=== PATIENT | male | born 1940 | race Caucasian/White ===

== ENCOUNTER 2019-07-19 10:38 | Outpatient (CLI) | payer MEDICARE, SELFPAY ==
--- NOTE | ~2019-07-19 | CT_ITS ---
EXAMINATION: CT abdomen pelvis wo con DATE: 07/19/2019 11:20 INDICATION: Gross hematuria TECHNIQUE: Computed tomography (CT) of the abdomen and pelvis was performed without intravenous contr ast. The dose-length product was 397.12 mGy-cm. Automated exposure control and iterative reconstructi on technique were employed. COMPARISON: CT dated 08/23/2014 FINDINGS: Lung bases are unremarkable. No significant pleural or pericardial effusion. There is ather osclerosis of the coronary arteries and aorta. No evidence for aneurysm. There are calcifications of the pelvis consistent with chronic pancreatitis. There are calcified granulomas in the spleen. There is a chronic low-density mass of the left adrenal gland measuring 3.7 cm craniocaudal dimension , unchanged from prior study. There are nonobstructing bilateral renal stones, largest in the lower p ole of the left kidney measuring 9 mm. No ureteral stones or hydronephrosis. There is a 3.8 cm left r enal cyst. There is moderate lumbar spondylosis with levoscoliosis. The right adrenal gland is unremarkable. No free air or free fluid. There are radiation therapy impla nt seeds in the prostate bed. Nonspecific bowel gas pattern with scattered air-fluid levels, possibly ileus. Colonic diverticulosis without evidence for diverticulitis. There are fat-containing inguinal hernias. IMPRESSION: 1. Nonobstructing bilateral nephrolithiasis. 2: Nonspecific bowel gas pattern with air-fluid levels, possibly adynamic ileus. Reviewed, dictated and finalized at location A. IMPRESSION: 1. Nonobstructing bilateral nephrolithiasis. 2: Nonspecific bowel gas pattern with air-fluid levels, possibly adynamic ileus .
== END 2019-07-19 10:39 | disposition home or self-care (01) ==
LOC: ANHIMG 10:41
PROVIDERS: PCP Family Medicine; Visit Provider Urology
DX: R31.0 Gross hematuria (principal); N20.0 Calculus of kidney
CPT/HCPCS: 74176

== ENCOUNTER 2019-08-18 09:21 | Outpatient (CLI) | payer MEDICARE, SELFPAY ==
--- NOTE | 2019-08-18 09:24 | ECG_ITS ---
Measurements Intervals [place] Rate: 67 P: 71 MI: 225 QRS: 119 QRSD: 96 T: 93 QT: 390 QTc: 415 Interpretive Statements SINUS RHYTHM WITH FIRST DEGREE AV BLOCK RIGHT AXIS DEVIATION BORDERLINE R WAVE PROGRESSION, ANTERIOR LEADS BORDERLINE T WAVE ABNORMALITY- HIGH LATERAL LEADS BASELINE ARTIFACT- I, AVR, AVL, V4, V6 ABNORMAL ECG Electronically Signed On 08-18-2019 10:11:17 CDT by Joseluis Lundberg D.O.
[2019-08-18 10:06] LABS: INR 0.9; Prothrombin Time 12.2 Seconds (11.1-14.7)
[2019-08-18 10:07] LABS: Partial Thromboplastin Time 25.7 SECONDS (22.3-36.8)
== END 2019-08-18 09:22 | disposition home or self-care (01) ==
LOC: ANHSURGERY 09:24
PROVIDERS: PCP Family Medicine; Visit Provider Urology
DX: Z01.812 Encounter for preprocedural laboratory examination (principal); N20.0 Calculus of kidney; E78.5 Hyperlipidemia, unspecified; R94.31 Abnormal electrocardiogram [ECG] [EKG]
CPT/HCPCS: 36415; 85610; 85730; 87077; 87086; 87088; 87186; 93005

== ENCOUNTER 2019-08-24 00:05 | Outpatient (CLI) | payer MEDICARE, SELFPAY ==
[2019-08-24 17:43] LABS: SARS-CoV-2 RNA PCR Negative
== END 2019-08-24 00:06 | disposition home or self-care (01) ==
LOC: ANHCOVIDDT 00:05
PROVIDERS: PCP Family Medicine; Visit Provider Urology
DX: Z01.818 Encounter for other preprocedural examination (principal); Z11.59 Encounter for screening for other viral diseases
CPT/HCPCS: 87635; C9803; U0003

== ENCOUNTER 2019-08-26 01:35 | Day surgery (SDC) | payer MEDICARE, SELFPAY ==
[2019-08-17 09:34] VITALS: BMI 26.2
--- NOTE | 2019-08-23 15:53 | PM.HPGS ---
History of Present Illness History of Present Illness Consent: Risks, benefits, and alternatives have been discussed and questions answered. Patient agrees to proceed with procedure. Chief complaint: Kidney Stones Narrative: Francisco Kaiser is a 79 year old male With a very remote history of prostate cancer treated with brachytherapy in 2008. He has had a 3 day history of gross hematuria recently. CT scan of the abdomen and pelvis without contrast revealed a 10 mm left renal pelvic stone. We discussed therapeutic options and elected for ESWL. He is aware of the risk of this including, but not limited to, bleeding from the kidney, failure of effectively treat the stone he urinary tract infection. Review of Systems Cardiovascular: Cardiovascular: Denies chest pain, Denies lightheadedness, Denies palpitations and Denies dyspnea Respiratory: Respiratory: Denies dyspnea Gastrointestinal: Gastrointestinal: Denies diarrhea, Denies nausea and Denies vomiting Genitourinary: Genitourinary: Denies hematuria and Denies dysuria Endocrine: Endocrine: Denies palpitations PMFSH Past Medical History Medical History Anxiety Colon cancer COPD mixed type Dizziness Hyperlipidemia Prostate cancer Smoker Family History Family History Father Acute myocardial infarction Malignant neoplasm of prostate Family history of malignant neoplasm of bone Mother Family history of arthritis Social History Social History Smoking status: Heavy tobacco smoker Second hand tobacco smoke exposure: No Alcohol intake: never Substance use: never Substance use type: does not use Gender identity (if verbalized by the patient): Male Meds Home Medications and Allergies Home Medications Medication Instructions Recorded Confirmed Type atorvastatin 20 mg tablet 20 mg PO DAILY #90 tablet 03/31/19 08/17/19 Rx albuterol sulfate 90 mcg/actuation 2 inhalation INHALATION Q4H PRN 05/20/19 08/17/19 Rx aerosol inhaler #6.7 gm fluticasone 250 mcg-salmeterol 50 1 inhalation INHALATION BID #60 08/01/19 08/17/19 Rx mcg/dose blistr powdr for each inhalation coQ10 (ubiquinol) 200 mg PO DAILY 08/17/19 08/17/19 History glucosamine-chondroitin 2 ml PO DAILY 08/17/19 08/17/19 History krill oil 350 mg PO DAILY 08/17/19 08/17/19 History multivitamin 1 tablet PO DAILY 08/17/19 08/17/19 History Allergies Allergy/AdvReac Type Severity Reaction Status Date / Time No Known Allergies Allergy NONE Verified 08/17/19 09:40 Exam Const: General: healthy appearing, comfortable, no acute distress and well developed; No confusion Nutritional Appearance: well nourished Orientation/consciousness: patient oriented x3 and No confusion HENMT: Head: normocephalic and atraumatic Ears: external ears normal Face and sinus: normal facial exam Mouth: Yes lip normal Teeth and gingiva: dentition normal Eyes: General: appearance normal, both eyes and all related structures Alignment and Position: alignment normal Eyelids: eyelids normal Cornea: corneas normal Pupils: Equal, round and reactive pupils present EOM: EOMs intact bilaterally Neck: Neck: normal visual inspection, full ROM and no JVD Chest: Chest palpation & inspection: normal inspection of the chest Resp: Effort & Inspection: normal respiratory effort and no use of accessory muscles Auscultation: clear to auscultation bilaterally Cardio: Jugular venous distension: no JVD Rate: regular rate Rhythm: regular rhythm GI: Inspection: normal to inspection GI Palp: No abdominal tenderness, No Guarding due to palpation present (GI) and No Rebound tenderness present Auscultation: normal bowel sounds : General: Yes bladder normal to palpation and No CVA tenderness Back/Spine/Pelvis: Back: No CVA tenderness Skin: General skin exam: normal color and no rashes or lesions noted Neur
[2019-08-26] VITALS (9 sets, daily range): BP systolic 119–151; BP diastolic 65–78; PULSE 54–73; RESP 12–16; TEMP 36–36.2; O2SAT 91–99
--- NOTE | ~2019-08-26 | XR_ITS ---
EXAMINATION: XR abdomen/kub 1V DATE: 08/26/2019 06:14 INDICATION: Bilateral kidney stones. TECHNIQUE: A supine view of the abdomen on 2 radiographs was obtained. COMPARISON: CT abdomen and pelvis 07/19/2019 FINDINGS: There are no dilated loops of bowel. The kidneys are obscured by bowel. There is a 9 mm sto ne in left kidney. There are brachytherapy seeds in the prostate. IMPRESSION: 1. 9 mm stone in left kidney. Reviewed, dictated and finalized at location A.
[2019-08-26] MEDS: LACTATED RINGERS 1,000 ML 30 ML IV CONT ×2 (06:45→09:00)
--- NOTE | 2019-08-26 06:58 | WPDANESEPPF ---
Anes - Initial Pre Proc Eval Procedure: Operation Date: 08/26/19 07:30 Proposed Procedures p Cystoscopy, Left Renal Extracorporeal Shock Wave Lithotripsy, Left Stent Placement - Javier Mixon MD Date/Time: 08/26/19 06:58 Surgeon: Javier Mixon MD Pre Op Diagnosis: Kidney Stones Patient Data Age: 79 Gender: M Height: 5 ft 8 in Weight: 80.4 kg Allergies Allergy/AdvReac Type Severity Reaction Status Date / Time No Known Allergies Allergy NONE Verified 08/26/19 06:26 Home Medications Medication Instructions Recorded Confirmed Type atorvastatin 20 mg tablet 20 mg PO DAILY #90 tablet 03/31/19 08/26/19 Rx albuterol sulfate 90 mcg/actuation 2 inhalation INHALATION Q4H PRN 05/20/19 08/26/19 Rx aerosol inhaler #6.7 gm fluticasone 250 mcg-salmeterol 50 1 inhalation INHALATION BID #60 08/01/19 08/26/19 Rx mcg/dose blistr powdr for each inhalation coQ10 (ubiquinol) 200 mg PO DAILY 08/17/19 08/17/19 History glucosamine-chondroitin 2 ml PO DAILY 08/17/19 08/26/19 History krill oil 350 mg PO DAILY 08/17/19 08/26/19 History multivitamin 1 tablet PO DAILY 08/17/19 08/26/19 History Patient hx anesthesia problems: none Family hx anesthesia problems: none PMFSH Past Medical History Medical History Anxiety Colon cancer COPD mixed type Dizziness Hyperlipidemia Prostate cancer Smoker Family History Family History Father Acute myocardial infarction Malignant neoplasm of prostate Family history of malignant neoplasm of bone Mother Family history of arthritis Social History Social History Smoking status: Heavy tobacco smoker Second hand tobacco smoke exposure: No Alcohol intake: never Substance use: never Substance use type: does not use Gender identity (if verbalized by the patient): Male Anes - Eval Final PreProcedure Day of Procedure 08/26/19 06:58 Patient weight: overweight Heart: regular rate and rhythm Lungs: decreased breath sounds Airway: Mallampati scale class II Neurological: alert and oriented Last oral intake: >/= 8 hours ASA classification: III Emergent: no Anesthetic plan: proceed Anesthesia type and monitoring: general LMA and standard monitoring Informed Consent: The patient's anesthetic plan and its attendant risks and benefits were discussed with the patient/family/POA. Questions were solicited and answers provided to the satisfaction of the patient/family/POA.
--- NOTE | 2019-08-26 06:59 | WPDHPUPDATE1 ---
History and Physical Update Update Date/Time: 08/26/19 06:59 History and Physical has been reviewed, including an updated exam of the patient. There are NO changes in the patient's condition. Risks, benefits, and alternatives have been discussed and questions answered. Patient agrees to proceed with procedure.
[2019-08-26] MEDS: ceFAZolin 2 GM/D5W 50 ML 2 GM/50 ML BAG IVPB (07:24)
--- NOTE | 2019-08-26 08:18 | P.OP_ITS ---
Procedure Note - Detailed Date of procedure: 08/26/19 Pre-op diagnosis: Kidney Stones Post-op diagnosis: other (1. Left kidney stones 2. Papillary bladder tumor) Procedure performed: 1. Cystoscopy, left ureteral stent placement. 2. TURBT (small, 2-3cm). Description of procedure: The patient was brought to the operative suite where he was placed in the supine position on the Dornier lithotripter table. Flexible cystoscopy was undertaken with a 16F flexible cystoscopy. There were no urethral strictures. The prostatic uretehral estimated lenght was 2.0cm. There was mild obstruction of the prostatic urethra with small median lobe en largement. 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 The remainder of the bladder mucosa was normal without hyperemia or additional neoplasms. A 0.035 glidewire was advanced into the left renal pelvis under fluoroscopy. A 4.8F J-J ureteral stent was positioned with the proximal coil in the renal pelvis and the distal coil in the bladder. Using a 24F resectescope I excised this lesion with an attempt made to include detrusor muscle for evaluation of invasion. The patient was then repositioned in the supine position with the focal point of the lithotriptor on a 6-7mm left mid-ureteral calculus. A total of 2500 shocks were delivered at a power setting of 4. There appeared to be good fragmentation of the stone. The patient tolerated the procedure well and was taken to the recovery room in good condition. Anesthesia: GLMA Surgeon: Javier Mixon MD Estimated blood loss (mL): 0 Drains: Yes (4.8F left ureteral stent) Packing: No Pathology: none sent Complications: No immediate complications Condition: stable Disposition: PACU
--- NOTE | 2019-08-26 09:40 | SUR.PHASEII ---
0902 - dr. church in room talking with pt
== END 2019-08-26 10:31 | disposition home or self-care (01) ==
PROVIDERS: PCP Family Medicine; Visit Provider Urology
PROC: (CPT 50590; principal; 2019-08-26 07:30)
DX: N20.0 Calculus of kidney (principal); C67.4 Malignant neoplasm of posterior wall of bladder; E78.5 Hyperlipidemia, unspecified; J44.9 Chronic obstructive pulmonary disease, unspecified; F41.9 Anxiety disorder, unspecified; Z85.038 Personal history of other malignant neoplasm of large intestine; Z72.0 Tobacco use; Z85.46 Personal history of malignant neoplasm of prostate
CPT/HCPCS: 52234; 74018; 87635; 88305; 88307; A9270; C1769; C2617; C9803; J0131; J0690; J2370; J2405; J2704; J3010; J7030; J7120; U0003

== ENCOUNTER 2019-09-12 06:34 | Outpatient (CLI) | payer MEDICARE, SELFPAY ==
--- NOTE | ~2019-09-12 | XR_ITS ---
EXAMINATION: XR abdomen/kub 1V DATE: 09/12/2019 06:57 INDICATION: Nephrolithiasis post left lithotripsy TECHNIQUE: A supine view of the abdomen on 2 radiographs was obtained. COMPARISON: 08/26/2019 FINDINGS: Interval placement of a left internal ureteral stent with loops formed over the expected location of the bladder and the upper pole calyx of the left kidney. 3 mm stone projecting over the upper pole of the left kidney. Multiple small stone fragments at the site of a prior larger stone at the lower byron e of the left kidney likely reflecting changes of interval lithotripsy. No evident right-sided nephro lithiasis. A few phleboliths versus atherosclerotic calcifications in the pelvis. No dilated gas-fill ed bowel to suggest obstruction. Mild lumbar levorotoscoliosis with mild to moderate spondylosis. The re are multiple brachytherapy seeds at the prostate. IMPRESSION: 1. Left internal ureteral stent in expected position with fragmentation of the stone at the lower byron e of the left kidney likely reflecting changes of interval lithotripsy. Reviewed, dictated and finalized at location A. IMPRESSION: 1. Left internal ureteral stent in expected position with fragmentation of the stone at the lower pole of the left kidney likely reflecting changes of interva l lithotripsy.
== END 2019-09-12 06:35 | disposition home or self-care (01) ==
LOC: ANHIMG 06:39
PROVIDERS: PCP Family Medicine; Visit Provider Urology
DX: N20.0 Calculus of kidney (principal)
CPT/HCPCS: 74018

== ENCOUNTER 2019-09-29 06:54 | Outpatient (CLI) | payer MEDICARE, SELFPAY ==
--- NOTE | ~2019-09-29 | XR_ITS ---
EXAMINATION: XR abdomen/kub 1V INDICATION: Left-sided kidney stone TECHNIQUE: Supine views of the abdomen were obtained on 2 radiographs. COMPARISON: 09/12/2019 FINDINGS: A left internal ureteral stent is in expected position. There appears to be a cluster of st ones in the left kidney lower pole. No stones are identified along the course of the internal uretera l stent. There are phleboliths of the right pelvis. Brachytherapy seeds are noted in the prostate. Th e bowel gas pattern is normal. There is moderate lumbar spondylosis. IMPRESSION: 1. Left internal ureteral stent in expected position with likely stone fragments in the left kidney l ower pole. Reviewed, dictated and finalized at location A. IMPRESSION: 1. Left internal ureteral stent in expected position with likely stone fragment s in the left kidney lower pole.
== END 2019-09-29 06:55 | disposition home or self-care (01) ==
LOC: ANHIMG 06:58
PROVIDERS: PCP Family Medicine; Visit Provider Urology
DX: N20.0 Calculus of kidney (principal)
CPT/HCPCS: 74018

== ENCOUNTER 2019-11-02 06:49 | Outpatient (CLI) | payer MEDICARE, SELFPAY ==
[2019-11-02 07:13] LABS: Hematocrit 44.9 % (42.0-52.0); Mean Corpuscular HGB Conc 33.4 g/dl (32-36); Mean Corpuscular Hemoglobin 31.7 pg (26-34); Mean Corpuscular Volume 94.9 fl (80-100); Mean Platelet Volume 9.1 fl (7.4-10.4); Platelet Count Result 199 k/mm3 (150-375); Red Blood Count 4.73 M/mm3 (4.6-6.20); Red Cell Distribution Width 13.2 % (11.5-14.5); White Blood Count 8.4 K/mm3 (4.5-10.0)
[2019-11-02 07:26] LABS: Cholesterol 174 mg/dL (0-200); HDL Direct 46 mg/dL; Triglycerides 139 mg/dL (<150)
[2019-11-02 07:37] LABS: LDL Cholesterol Direct 109 mg/dL
[2019-11-02 07:57] LABS: Thyroid Stimulating Hormone 0.892 uIU/mL (0.465-4.680)
== END 2019-11-02 06:50 | disposition home or self-care (01) ==
PROVIDERS: PCP Family Medicine; Visit Provider Family Medicine
DX: E78.5 Hyperlipidemia, unspecified (principal); R42 Dizziness and giddiness
CPT/HCPCS: 36415; 80061; 84443; 85027

== ENCOUNTER 2021-01-15 12:09 | Outpatient (CLI) | payer MEDICARE, SELFPAY ==
[2021-01-15 12:32] LABS: Anion Gap 6 mmol/L (8-16); Blood Urea Nitrogen 15 mg/dL (9-20); Calcium 9.6 mg/dL (8.4-10.2); Carbon Dioxide 28 mmol/L (22-30); Chloride 106 mmol/L (98-107); Estimated Glomerular Filt Rate > 60; Glucose 101 mg/dL (65-110); Potassium 4.2 mmol/L (3.4-5.0); Sodium 140 mmol/L (137-145)
== END 2021-01-15 12:10 | disposition home or self-care (01) ==
PROVIDERS: PCP Family Medicine; Visit Provider Physician Assistant
DX: E87.0 Hyperosmolality and hypernatremia (principal)
CPT/HCPCS: 36415; 80048

== ENCOUNTER 2021-02-04 12:25 | Outpatient (CLI) | payer MEDICARE, SELFPAY ==
--- NOTE | ~2021-02-04 | XR_ITS ---
XR lumbar spine min 4V DATE: 02/04/2021 12:49 INDICATION: Back pain. No injury. TECHNIQUE: AP, lateral, bilateral oblique and coned lateral lumbosacral views COMPARISON: None FINDINGS: There is diffuse osteopenia. There is prominent rotatory levoscoliosis of the lower thoracic and lumbar spine. There is multilevel degenerative disc disease of the lumbar spine. No fracture or bone destruction is evident. No spondylolisthesis. The sacroiliac joints are normal in appearance. Prominent calcification overlying the left kidney. There is extensive calcification of the abdominal aorta without evidence of aneurysm. IMPRESSION: Diffuse osteopenia Prominent rotatory levoscoliosis and multilevel degenerative disc disease Reviewed, dictated and finalized at location A. E SETUP OPERATOR
== END 2021-02-04 12:26 | disposition home or self-care (01) ==
LOC: ANHIMG 12:30
PROVIDERS: PCP Family Medicine; Visit Provider Physician Assistant
DX: M85.88 Other specified disorders of bone density and structure, other site (principal)
CPT/HCPCS: 72110

== ENCOUNTER 2021-07-17 13:58 | Outpatient (CLI) | payer MEDICARE, SELFPAY ==
--- NOTE | ~2021-07-17 | CT_ITS ---
EXAMINATION: CT lung screening DATE: 07/17/2021 14:15 INDICATION: Personal history of nicotine dependence, current smoker with 40 pack year history TECHNIQUE: Computed tomography (CT) of the chest was performed without intravenous contrast. The dose -length product (DLP) was 93.55 mGy-cm. Automated exposure control and iterative reconstruction techn [employer] were employed. COMPARISON: 07/19/2019 FINDINGS: There is moderate thoracic spondylosis. There are multiple ill-defined nodules scattered th roughout the right lung measuring up to 7 mm. There is no pleural effusion or pneumothorax. No pathol ogically enlarged thoracic lymph nodes are identified. The heart size is normal. Calcified coronary a rtery atherosclerosis is noted. Calcified pulmonary nodules are consistent with old granulomatous dis ease. There is a chronic low-attenuation mass of the left adrenal gland, consistent with an adenoma. Severe upper lumbar spondylosis is noted. IMPRESSION: 1. Lung-RADS category 3: Probably benign. Followup with noncontrast low-dose chest CT in 6 months is recommended. Reviewed, dictated and finalized at location F. IMPRESSION: 1. Lung-RADS category 3: Probably benign. Followup with noncontrast low-dose ch est CT in 6 months is recommended.
== END 2021-07-17 13:59 | disposition home or self-care (01) ==
PROVIDERS: PCP Family Medicine; Visit Provider Physician Assistant
DX: Z12.2 Encounter for screening for malignant neoplasm of respiratory organs (principal); Z87.891 Personal history of nicotine dependence; R91.8 Other nonspecific abnormal finding of lung field
CPT/HCPCS: 71271

== ENCOUNTER 2021-11-11 09:45 | Outpatient (CLI) | payer MEDICARE, SELFPAY ==
--- NOTE | ~2021-11-11 | MR_ITS ---
EXAMINATION: MR brain/brain stem wo/w con DATE: 11/11/2021 12:14 INDICATION: Vision disturbance. TECHNIQUE: Magnetic resonance imaging (MRI) of the brain and brainstem was performed without and with 14 mL MultiHance intravenous contrast. COMPARISON: Neck CT 03/05/2006 FINDINGS: There is a punctate focus of old microhemorrhage in left upper lobe. There are scattered ar eas of nonspecific increased T2-weighted signal intensity in the cerebral white matter. There is no a cute ischemic infarct or abnormal mass lesion. The ventricles are normal in size. There are likely ch anges of ocular lens replacement surgeries. There is mucosal thickening in the paranasal sinuses and nasal cavity. There is a mass extending from left maxillary sinus to the nasal cavity and nasopharynx . IMPRESSION: 1. Moderate nonspecific cerebral white matter disease, which likely represents chronic small vessel i schemic disease. 2. Mass extending from the left maxillary sinus to the nasal cavity and nasopharynx. 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 Reviewed, dictated and finalized at location A. IMPRESSION: 1. Moderate nonspecific cerebral white matter disease, which likely represents chronic small vessel ischemic disease. 2. Mass extending from the left maxillary sinus to the nasal cavity and nasopha rynx. 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
--- NOTE | ~2021-11-11 | US_ITS ---
EXAMINATION: US carotid duplex BI DATE: 11/11/2021 11:06 INDICATION: Unspecified visual disturbance. TECHNIQUE: Grayscale, color Doppler, and pulsed Doppler images of the cervical carotid arteries were obtained. The degree of vessel stenosis is placed in one of the following categories: normal, <50%, 5 0-69%, >=70% but less than near-occlusion, near-occlusion, or total occlusion. Note that percent sten osis relative to normal distal artery lumen diameter is indirectly measured from velocity measurement s as described by Manuel, et al. Radiology 2003; 229:340-346. COMPARISON: None. FINDINGS: RIGHT: The right common carotid artery (CCA) peak systolic velocity (PSV) is 89 cm/s. The right internal car otid artery (ICA) PSV is 90 cm/s. The right ICA end-diastolic velocity (EDV) is 35 cm/s. The right IC A/CCA PSV ratio is 1.0. Grayscale and color Doppler images yield an estimate of <50% diameter reducti on from plaque in the ICA. There is antegrade flow in the right vertebral artery. LEFT: The left CCA PSV is 98 cm/s. The left ICA PSV is 95 cm/s. The left ICA EDV is 33 cm/s. The left ICA/C CA PSV ratio is 1.0. Grayscale and color Doppler images yield an estimate of <50% diameter reduction from plaque in the ICA. There is antegrade flow in the left vertebral artery. IMPRESSION: 1. <50% stenosis in the right internal carotid artery. 2. <50% stenosis in the left internal carotid artery. Reviewed, dictated and finalized at location A.
--- NOTE | 2021-11-11 09:54 | ECHO_ITS ---
Patient Info Name: Francisco Kaiser Age: 81 years : 1940 Gender: Male Ht: 67 in Wt: 156 lbs BSA: 1.84 m2 HR: 67 bpm BP: 134 / 86 mmHg Technical Quality: Good Exam Date: 11/11/2021 10:12 AM Exam Location: [facility] Patient Status: Outpatient Admit Date: 11/11/2021 Staff Ordering Physician: Raisa Foley MD Home Health Care Case Manager: Sarahy Irizarry RDCS Attending Provider: Rasia Foley MD Referring Physician: Og DICKEY; Exam Type: CA echo doppler color flow Study Info Indications H53.9 - Unspecified visual disturbance Complete two-dimensional, color flow and Doppler transthoracic echocardiogram is performed. Summary 1. Complete two-dimensional, color flow and Doppler transthoracic echocardiogram is performed. 2. Left ventricular chamber dimension is normal. 3. Left ventricular systolic function is normal, estimated at 60-65%. 4. The left ventricular diastolic function is grade II diastolic dysfunction. 5. E/e' 12 is mildly elevated. 6. Global longitudinal strain is normal at -20.2%. 7. There is moderate aortic valve sclerosis. 8. Mild pulmonary hypertension, estimated pulmonary arterial systolic pressure is 46 mmHg. Left Ventricle E/e' 12 is mildly elevated. Global longitudinal strain is normal at -20.2%. Left ventricular chamber dimension is normal. Left ventricular systolic function is normal, estimated at 60-65%. The left ventricular diastolic function is grade II diastolic dysfunction. Right Ventricle Right ventricular systolic function is normal and with normal TAPSE 2.4 cm. Right ventricular chamber dimension is normal. Left Atria Left atrial chamber dimension is normal. Right Atria Right atrial chamber dimension is normal. Aortic Valve The aortic valve is trileaflet. There is moderate aortic valve sclerosis. There is no aortic valve stenosis. There is no aortic valve regurgitation. Pulmonic Valve There is no pulmonic regurgitation. Mitral Valve There is no mitral valve stenosis. There is no mitral valve regurgitation. Tricuspid Valve There is no tricuspid valve regurgitation. Mild pulmonary hypertension, estimated pulmonary arterial systolic pressure is 46 mmHg. Pericardium/Pleural There is no pericardial effusion. Inferior Vena Cava Normal inferior vena cava with >50% collapse upon inspiration consistent with normal right atrial pressure, 5 mmHg. Aorta The aortic root size at the sinus of Valsalva is normal. Left Ventricular Outflow Tract Name Value Normal LVOT 2D LVOT Diameter 2.0 cm LVOT Doppler LVOT Peak Gradient 4 mmHg LVOT Mean Gradient 3 mmHg LVOT VTI 25 cm LVOT VTI/AV VTI Ratio 0.9 LVOT Stroke Volume 83 ml LVOT CO 4.9 l/min LVOT CI 2.7 l/min/m2 Pulmonic Valve Name Value Normal
== END 2021-11-11 09:46 | disposition home or self-care (01) ==
PROVIDERS: PCP Family Medicine; Visit Provider Family Medicine
DX: H53.9 Unspecified visual disturbance (principal); I63.9 Cerebral infarction, unspecified; C61 Malignant neoplasm of prostate; R93.0 Abnormal findings on diagnostic imaging of skull and head, not elsewhere classified; I65.23 Occlusion and stenosis of bilateral carotid arteries
CPT/HCPCS: 70553; 93306; 93880; A9577

== ENCOUNTER 2021-12-24 14:01 | Outpatient (CLI) | payer MEDICARE, SELFPAY ==
--- NOTE | ~2021-12-24 | CT_ITS ---
EXAMINATION: CT sinus wo con DATE: 12/24/2021 14:24 INDICATION: Left sinonasal tumor. Deviated septum. TECHNIQUE: Computed tomography (CT) of the paranasal sinuses was performed without intravenous contra st. Iterative reconstruction technique was employed. The dose-length product was 268.17 mGy-cm. COMPARISON: Neck CT 03/05/2006 FINDINGS: There are likely changes of ocular lens replacement surgeries. The mastoid air cells are no rmal. Partially visualized is extensive dental disease including periapical lucencies around multiple teeth. The frontal sinuses are clear. There is mucosal thickening in the anterior ethmoid sinuses, r ight worse than left. There is near complete opacification of left maxillary sinus with material bulg ing into the nasal cavity with enlargement and occlusion of the ostiomeatal unit. There are polypoid masses in the right maxillary sinus and nasal cavities with enlargement and occlusion of right osteom eatal unit. There is a bone sclerosis and erosion involving the anterior right ethmoid sinuses. There is diffuse thickening and sclerosis of the maurer of left maxillary sinus. There is leftward deviatio n of the nasal septum. 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 IMPRESSION: 1. 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 2. Extensive dental disease. Reviewed, dictated and finalized at location A. IMPRESSION: 1. Chronic sinusitis including remodeling of bone, which may be sinonasal polyp osis. 2. Extensive dental disease.
== END 2021-12-24 14:02 | disposition home or self-care (01) ==
LOC: ANHIMG 14:04
PROVIDERS: PCP Family Medicine; Visit Provider Otolaryngology
DX: J34.3 Hypertrophy of nasal turbinates (principal); J34.2 Deviated nasal septum; J34.89 Other specified disorders of nose and nasal sinuses; J32.9 Chronic sinusitis, unspecified; J33.9 Nasal polyp, unspecified; D49.1 Neoplasm of unspecified behavior of respiratory system
CPT/HCPCS: 70486

== ENCOUNTER 2022-01-15 12:31 | Outpatient (CLI) | payer MEDICARE, SELFPAY ==
--- NOTE | ~2022-01-15 | CT_ITS ---
EXAMINATION: CT diagnostic chest wo con DATE: 01/15/2022 12:52 INDICATION: Six-month follow-up of multiple ill-defined nodules scattered throughout the right lung m easuring up to 7 mm on 07/17/2021 CT lung screening examination. Tobacco use. TECHNIQUE: Computed tomography (CT) of the chest was performed without intravenous contrast. Automate d exposure control and iterative reconstruction technique were employed. Exam dose: 98.70 mGy-cm tot al exam DLP. COMPARISON: 07/17/2021 CT lung screening examination FINDINGS: There are scattered areas of focal groundglass infiltrate in the right upper lobe, including upper me dial aspect of the right upper lobe and to a greater extent the posterior segment of the right upper lobe. The medial upper lobe focal infiltrate is new and there is mildly increased posterior segment r ight upper lobe infiltrate since 07/17/2021. Minimal focal groundglass infiltrate in the right upper lobe. Chronic discoid atelectasis or scarring at the lingula. New approximately 5.8 mm calcified nodule of the right lower lobe (series 4 image 87), consistent wit h calcified pulmonary granuloma. There is interval resolution of scattered focal groundglass infiltra manjit of the right lower lobe since 07/17/2021. There is minimal chronic atelectasis or scarring at the right lung base. Mild to moderate emphysematous changes. Occasional calcified pulmonary granulomas in the left lung. Normal heart size. Coronary artery calcification. Thoracic aortic calcification. No thoracic aortic a neurysm. No hilar or mediastinal mass lesion or lymphadenopathy. No pericardial or pleural effusion. Stable probable left adrenal adenoma. Left nephrolithiasis. Multiple pancreatic calcifications are noted consistent with chronic pancreatitis. No suspicious osteolytic or osteoblastic lesions. IMPRESSION: Waxing and waning right upper and lower lobe infiltrates since 07/17/2021, suggesting inf lammatory or infectious process. [address] follow-up examination is recommended Old pulmonary granulomatous disease Mild to moderate emphysematous changes Chronic pancreatitis Left nephrolithiasis Stable left adrenal adenoma Reviewed, dictated and finalized at [facility]. Reviewed, dictated and finalized at [facility]. IMPRESSION: Waxing and waning right upper and lower lobe infiltrates since 06/22, suggesting inflammatory or infectious process. [address] follow-up exa mination is recommended Old pulmonary granulomatous disease Mild to moderate emphysematous changes Chronic pancreatitis Left nephrolithiasis Stable left adrenal adenoma
== END 2022-01-15 12:32 | disposition home or self-care (01) ==
PROVIDERS: PCP Family Medicine; Visit Provider Physician Assistant
DX: R91.8 Other nonspecific abnormal finding of lung field (principal)
CPT/HCPCS: 71250

== ENCOUNTER 2022-02-03 07:44 | Outpatient (CLI) | payer MEDICARE, SELFPAY ==
--- NOTE | 2022-02-03 08:00 | ECG_ITS ---
Measurements Intervals [place] Rate: 66 P: 67 [place]: 202 QRS: 117 QRSD: 105 T: 72 QT: 385 QTc: 406 Interpretive Statements SINUS RHYTHM RIGHT AXIS DEVIATION BORDERLINE AV CONDUCTION DELAY POOR R WAVE PROGRESSION, ANTERIOR LEADS BASELINE ARTIFACT- I, II, AVR BORDERLINE ECG COMPARED TO ECG 08/18/2019 10:00:38 NO SIGNIFICANT CHANGES Electronically Signed On 02-03-2022 9:34:10 [employer] by Joseluis Lundberg D.O.
== END 2022-02-03 07:45 | disposition home or self-care (01) ==
LOC: ANHSURGERY 07:48
PROVIDERS: PCP Family Medicine; Visit Provider Otolaryngology
DX: E78.5 Hyperlipidemia, unspecified (principal); Z01.818 Encounter for other preprocedural examination; I45.9 Conduction disorder, unspecified
CPT/HCPCS: 93005

== ENCOUNTER 2022-02-07 01:23 | Day surgery (SDC) | payer MEDICARE, SELFPAY ==
[2022-01-24 14:50] VITALS: BMI 24.9
--- NOTE | 2022-01-24 15:06 | PC.NURSE ---
PRE-OP INSTRUCTIONS, PLEASE READ CAREFULLY Report to the Outpatient Waiting Room, entrance under the green pavilion located off [facility], at time _1100_ on date _02/07/22_. Planned Procedure Time: _1 PM_. Time changes happen often and if your time is changed the preop area will call you the afternoon before. - You and your visitor will be asked to self-screen and do not enter if you have any COVID symptoms. - We encourage only one visitor and NO visitors under age 16 are allowed at this time. Your visitor will receive communication by the phone number that is given day of service. - The patient visitor is requested to social distance or may leave the building when not with patient due to restrictions. - A mask is required within the hospital. Patients may have clear liquids (water, carbonated beverages, clear teas, apple juice) until 3 hours prior to surgery (1000 AM) with a maximum of 20 ounces. - No food from midnight until time of surgery Take the following medications with a SIP of water the morning of surgery: _INHALER, EYE DROPS_ Medications to discontinue - _ASPIRIN PER DR. MARTE'S INSTRUCTIONS_ Medications to discontinue per ANESTHESIA - _GLUCOSAMINE-CHONDROITIN, KRILL OIL & MULTI VITAMIN 3 DAYS PRIOR TO SURGERY, Date to take last dose 02/03/22_ Please no make-up, nail belarusian, hairspray, perfume, deodorant, or body powder the day of surgery. No jewelry (including any body piercings) or valuables the day of surgery, leave them at home. Please take a shower or bath the night before, or the morning of, surgery with an antibacterial soap. Wear comfortable, loose fitting clothing. - Jewelry must be removed prior to entering the operating room. Rings and piercings that are not removed may be cut off. - The hospital will not accept responsibility for valuables. - Please leave all valuables, including medications, at home the day of surgery. If you are going home after surgery, a licensed mobile lounge driver must drive you home. - NO public transportation without another adult. - We recommend that an adult stay with you for 24 hours following discharge. - We also recommend that you do not drive, make important decision, drink alcoholic beverages, or take any drugs that were not prescribed by your health care provider for at least 24 hours after your discharge time. Follow any additional instructions given to you from your surgeon. If you or anyone in your household have experienced Covid symptoms in the past week, please notify your surgeon or the nurse liaison at the phone number below for possible testing. Telephone instructions given to ____PT and asked if any additional questions and then verbalized understanding. Patient advised to call surgeon office or pre surgery nurse liaison [phone] if any additional questions.
--- NOTE | 2022-02-06 08:01 | PM.IMHP ---
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 hypertrophy Narrative: planned surgical procedure Review of Systems Review of Systems: All systems reviewed & are unremarkable except as noted in HPI and below PMFSH Past Medical History Medical History Anxiety Colon cancer Denies colonoscopy (12/2021) COPD mixed type Dizziness Hyperlipidemia Lung nodules Prostate cancer Smoker Surgical History Surgical History Hx of cataract extraction Family History Family History Father Acute myocardial infarction Malignant neoplasm of prostate Family history of malignant neoplasm of bone Mother Family history of arthritis Social History Social History Smoking packs per day: 1 Smoking cigarettes per day: 20.0 Years smoked: 42 Smoking pack-years: 42.00 Smoking status: Current every day smoker Tobacco type: cigarettes Second hand tobacco smoke exposure: Yes Alcohol intake: never Substance use: never Substance use type: does not use Gender identity (if verbalized by the patient): Male Spiritual care concerns: No Meds Home Medications and Allergies Home Medications Medication Instructions Recorded Confirmed Type coQ10 (ubiquinol) 200 mg capsule 400 mg PO DAILY 08/17/19 01/24/22 History glucosamine-chondroitin 1,500 mg 2 ml PO DAILY 08/17/19 01/24/22 History -1,200 mg/30 mL oral liquid krill oil 500 mg capsule 350 mg PO DAILY 08/17/19 01/24/22 History multivitamin 1 tablet PO DAILY 08/17/19 01/24/22 History albuterol sulfate 90 mcg/actuation 2 inh inhalation Q4H PRN shortness 01/01/21 01/24/22 Rx aerosol inhaler (ProAir HFA) of breath or wheezing #8.5 grams aspirin 81 mg tablet,delayed 81 mg PO .every other day 07/10/21 01/24/22 History release cyclosporine 0.05 % eye drops 1 drp EACH EYE Q12H 07/10/21 01/24/22 History (Restasis MultiDose) losartan 25 mg tablet 25 mg PO DAILY #90 tabs 10/10/21 01/24/22 Rx carboxymethylcellulose sodium 0.5 1 drp EACH EYE BID 11/01/21 01/24/22 History % eye drops (Refresh Tears) atorvastatin 20 mg tablet 20 mg PO DAILY #90 tabs 01/07/22 01/24/22 Rx fluticasone 250 mcg-salmeterol 50 See Rx Instructions .Route 01/07/22 01/24/22 Rx mcg/dose blistr powdr for .COMPLEX #60 ea inhalation (Wixela Inhub) prednisone 10 mg tablet 10 mg PO DAILY 2 days #2 tabs 02/05/22 Rx Allergies Allergy/AdvReac Type Severity Reaction Status Date / Time No Known Allergies Allergy NONE Verified 01/24/22 14:44 Exam Narrative: polyps on the right tumor on the left septal deviation Assessment and Plan Assessment and plan (1) Hypertrophy of both inferior nasal turbinates: Code(s): J34.3 - Hypertrophy of nasal turbinates Status: Acute Assessment and Plan: plan operating room: left-sided endoscopic image guided maxillary antrostomy with tissue removal, anterior ethmoidectomy possible Dewey yogi, right-sided image guided endoscopic maxillary antrostomy with tissue removal,anterior ethmoidectomy frontal sinusotomy total operative time that is 2.5 hours of my time. ? risks discussed including more significant given his age, bleeding infection blindness CSF leak brain damage brain change in vision need for further procedures. (2) Nasal septal deviation: Code(s): J34.2 - Deviated nasal septum Status: Acute (3) Nasal obstruction: Code(s): J34.89 - Other specified disorders of nose and nasal sinuses Status: Acute (4) Chronic sinusitis: Code(s): J32.9 - Chronic sinusitis, unspecified Status: Acute (5) Nasal polyps: Code(s): J33.9 - Nasal polyp, unspecified Status: Acute (6) Nasal sinu
[2022-02-07] VITALS (11 sets, daily range): BP systolic 137–193; BP diastolic 68–96; PULSE 56–67; RESP 11–16; TEMP 36.3; O2SAT 92–100
--- NOTE | 2022-02-07 07:17 | WPDHPUPDATE1 ---
History and Physical Update Update Date/Time: 02/07/22 07:17 History and Physical has been reviewed, including an updated exam of the patient. There are NO changes in the patient's condition. Risks, benefits, and alternatives have been discussed and questions answered. Patient agrees to proceed with procedure.
--- NOTE | 2022-02-07 08:19 | WPDANESEPPF ---
Anes - Initial Pre Proc Eval Procedure: Operation Date: 02/07/22 11:00 Proposed Procedures p Image Guided Bilateral Maxillary Antrostomy with Tissue Removal, Bilateral Anterior Ethmoidectomy, Bilateral Frontal Sinusotomy - Gavin Carcamo MD s Possible Right Dewey-Angel Procedure - Gavin Carcamo MD Date/Time: 02/07/22 08:19 Surgeon: Gavin Carcamo MD Pre Op Diagnosis: chronic sinusitis Patient Data Age: 82 Gender: M Height: 1.7 m Weight: 72.27 kg Allergies Allergy/AdvReac Type Severity Reaction Status Date / Time No Known Allergies Allergy NONE Verified 01/24/22 14:44 Home Medications Medication Instructions Recorded Confirmed Type coQ10 (ubiquinol) 200 mg capsule 400 mg PO DAILY 08/17/19 01/24/22 History glucosamine-chondroitin 1,500 mg 2 ml PO DAILY 08/17/19 01/24/22 History -1,200 mg/30 mL oral liquid krill oil 500 mg capsule 350 mg PO DAILY 08/17/19 01/24/22 History multivitamin 1 tablet PO DAILY 08/17/19 01/24/22 History albuterol sulfate 90 mcg/actuation 2 inh inhalation Q4H PRN shortness 01/01/21 01/24/22 Rx aerosol inhaler (ProAir HFA) of breath or wheezing #8.5 grams aspirin 81 mg tablet,delayed 81 mg PO .every other day 07/10/21 01/24/22 History release cyclosporine 0.05 % eye drops 1 drp EACH EYE Q12H 07/10/21 01/24/22 History (Restasis MultiDose) losartan 25 mg tablet 25 mg PO DAILY #90 tabs 10/10/21 01/24/22 Rx carboxymethylcellulose sodium 0.5 1 drp EACH EYE BID 11/01/21 01/24/22 History % eye drops (Refresh Tears) atorvastatin 20 mg tablet 20 mg PO DAILY #90 tabs 01/07/22 01/24/22 Rx fluticasone 250 mcg-salmeterol 50 See Rx Instructions .Route 01/07/22 01/24/22 Rx mcg/dose blistr powdr for .COMPLEX #60 ea inhalation (Wixela Inhub) Patient hx anesthesia problems: none Family hx anesthesia problems: none Results Review: All pre-operative results and documents have been reviewed as part of the pre-operative evaluation. [facility] Past Medical History Medical History Anxiety Colon cancer Denies colonoscopy (12/2021) COPD mixed type Dizziness Hyperlipidemia Lung nodules MVP (mitral valve prolapse) Prostate cancer Smoker Surgical History Surgical History Hx of cataract extraction Family History Family History Father Acute myocardial infarction Malignant neoplasm of prostate Family history of malignant neoplasm of bone Mother Family history of arthritis Social History Social History Smoking packs per day: 1 Smoking cigarettes per day: 20.0 Years smoked: 40 Smoking pack-years: 40.00 Smoking status: Current every day smoker Tobacco type: cigarettes Second hand tobacco smoke exposure: No Alcohol intake: never Substance use: never Substance use type: does not use Living arrangements: with family Gender identity (if verbalized by the patient): Male Spiritual care concerns: No Anes - Eval Final PreProcedure Day of Procedure 02/07/22 08:19 Patient weight: obese Heart: regular rate and rhythm Lungs: clear to auscultation Airway: Mallampati scale class II and special considerations poor dentition Neurological: alert and oriented Last oral intake: >/= 8 hours ASA classification: III Emergent: no Anesthetic plan: proceed Anesthesia type and monitoring: general ETT and standard monitoring Results Review: All pre-operative results and documents have been reviewed as part of the pre-operative evaluation. Informed Consent: The patient's anesthetic plan and its attendant risks and benefits were discussed with the patient/family/POA. Questions were solicited and answers provided to the satisfaction of the patient/family/POA.
--- NOTE | 2022-02-07 10:10 | WPDHPUPDATE1 ---
History and Physical Update Update Date/Time: 02/07/22 10:10 Procedure upate. Bilateral image guided endoscopic maxillary antrostomies with tissue removal, bilateral image guided endoscopic anterior ethmoidectomies, Right frontal sinusotomy, Possible left fields yogi, possible septoplasty
[2022-02-07] MEDS: ACETAMINOPHEN 500 MG TABLET 1000 MG PO (10:30)
[2022-02-07] MEDS: ceFAZolin 2 GM/D5W 50 ML 2 GM/50 ML BAG IVPB (10:39)
[2022-02-07] MEDS: LACTATED RINGERS 1,000 ML 30 ML IV CONT (10:45)
[2022-02-07] MEDS: OXYMETAZOLINE HCL 0.05% NAS 15 ML BTL (*BKC) 1 SPRAY NASAL (11:44)
[2022-02-07] MEDS: LIDO 1%/EPINEPHRINE/PF 1:200,000 30 ML VIAL 10 ML XX (12:00)
--- NOTE | 2022-02-07 13:03 | P.OP_ITS ---
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 Unable to remove the very anterior portion about 90 95%. Description of Procedure Patient identified consent verified. Patient brought operating room. Time- out performed. General anesthesia induced endotracheal tube secured taped left lower lip. Patient prepped draped position image guidance initiated. Second time-out performed. Afrin-soaked pledgets placed bilaterally and allowed to sit for 5 minutes. 0 degree endoscope utilized maxillary antrostomies performed with backbiter double ball tip probe straight through cut micro debrider biopsies were sent. Tumors debrided with microdebrider and Nelson. Ethmoidectomies performed with image guidance Kerrison microdebrider. Right frontal sinusotomy performed with 70 degree scope and frontal sinus notice instruments including Cobra and suction. The left maxillary antrostomy was widened very widely using image guidance 70 degree scope rad 40 rad 60 microdebrider as well. Was unable to get the very anterior portion of the tumor. I had previously discussed leaving this with the patient. Will follow up pathology implant further excision if necessary for surveillance. Total blood loss about 150 cc. Care the patient given Anesthesiology no co mplications. Patient tolerated the procedure well I performed all dictated portions. Estimated Blood Loss 150 Drains No Packing No Pathology Yes Complications No immediate complications Condition Stable Disposition PACU
[2022-02-07] MEDS: hydrALAZINE HCL 20 MG/ML VIAL 10 MG IV PUSH (13:45)
--- NOTE | 2022-02-07 13:46 | SUR.PHASEI ---
DR. RAMIREZ CALLED RE: HIGH BP'S. 10 MG HYDRALAZINE GIVEN PER ORDER.
== END 2022-02-07 16:08 | disposition home or self-care (01) ==
PROVIDERS: PCP Family Medicine; Visit Provider Otolaryngology
PROC: (CPT 31254; principal; 2022-02-07 11:00)
DX: D14.0 Benign neoplasm of middle ear, nasal cavity and accessory sinuses (principal); J34.3 Hypertrophy of nasal turbinates; J32.9 Chronic sinusitis, unspecified; J44.9 Chronic obstructive pulmonary disease, unspecified; I34.1 Nonrheumatic mitral (valve) prolapse; E78.5 Hyperlipidemia, unspecified; Z85.46 Personal history of malignant neoplasm of prostate; F17.210 Nicotine dependence, cigarettes, uncomplicated; Z79.51 Long term (current) use of inhaled steroids; Z79.82 Long term (current) use of aspirin
CPT/HCPCS: 31254; 31267; 61782; 31276; 30999; 88304; 88305; 88331; 93005; A9270; J0330; J0360; J0690; J1100; J1170; J2405; J2704; J3010; J7120

== ENCOUNTER 2022-07-13 08:15 | Outpatient (CLI) | payer MEDICARE, SELFPAY ==
--- NOTE | ~2022-07-13 | CT_ITS ---
EXAMINATION: CT diagnostic chest wo con DATE: 07/13/2022 08:57 INDICATION: Persistent infiltrates TECHNIQUE: Computed tomography (CT) of the chest was performed without intravenous contrast. The dose -length product (DLP) was 211.92 mGy-cm. Automated exposure control and iterative reconstruction tech M-Changa were employed. COMPARISON: 07/17/2021 FINDINGS: There is moderate emphysema. A few scattered nodules are again noted in the right lung whic h demonstrate interval decrease in size. No new pulmonary nodules are identified. There is mild atele ctasis in the left lower lobe. No pleural effusion or pneumothorax. No pathologically enlarged thorac ic lymph nodes are identified. The heart size is normal. Calcified coronary artery atherosclerosis is noted. There is a 4.4 cm cyst of the left kidney lower pole. A partially imaged 1.5 cm nonobstructin g stone is present in the left kidney lower pole. Chronic low-attenuation mass of the left adrenal gl and is noted, consistent with an adenoma. There is severe upper lumbar spondylosis. IMPRESSION: 1. Multiple right lung nodules with interval decrease in size, consistent with infection/inflammation . Annual lung cancer screening CT is recommended. Reviewed, dictated and finalized at [facility]. IMPRESSION: 1. Multiple right lung nodules with interval decrease in size, consistent with infection/inflammation. Annual lung cancer screening CT is recommended.
== END 2022-07-13 08:16 | disposition home or self-care (01) ==
LOC: ANHIMG 08:21
PROVIDERS: PCP Family Medicine; Visit Provider Family Medicine
DX: R93.89 Abnormal findings on diagnostic imaging of other specified body structures (principal); R91.8 Other nonspecific abnormal finding of lung field
CPT/HCPCS: 71250

== ENCOUNTER 2022-10-31 06:45 | Outpatient (CLI) | payer MEDICARE, SELFPAY ==
--- NOTE | ~2022-10-31 | CT_ITS ---
CT of the Abdomen and Pelvis: Indication: Urinary bladder carcinoma Technique: 2.5 mm axial scans were obtained through the abdomen and pelvis prior to and following in travenous administration of 130 cc of Omnipaque 350. Dose reduction technique was used on this scan b y utilizing automated exposure control and iterative reconstruction technique. The dose-length produc t (DLP) was 1001.49 mGy-cm. COMPARISON: 07/19/2019 Findings: Scans through the lung bases are unremarkable. Stable subcentimeter right hepatic lobe cyst present. Stable low-density left adrenal nodules on prec ontrast images, compatible with left adrenal adenomas. Pancreatic calcifications suggest chronic panc reatitis. There are bilateral nonobstructing renal stones, measuring up to 13 mm in size in the left, and 7 mm in diameter on the right. Left renal cyst present. No ureteral stone or hydronephrosis on either side . The spleen, gallbladder, and right adrenal gland are within normal limits. There are atherosclerotic calcifications of the aorta. No lymphadenopathy. No bowel obstruction or bowel wall thickening. Sigmoid diverticulosis noted. Images through the pelvis were performed. Questionable minimal thickening of the posterior urinary bl adder wall. Prostate gland radiation seeds are present. No ascites. Impression: Questionable minimal thickening of the posterior urinary bladder wall. This is nonspecific, and not p articularly masslike in appearance. This could reflect post therapy change or other chronic mild wall thickening. Mild residual/recurrent neoplasm it is difficult to completely exclude however. No evidence for metastatic disease. Bilateral nephrolithiasis, as detailed above. Stable left adrenal adenomas. Reviewed, dictated and finalized at location . Impression: Questionable minimal thickening of the posterior urinary bladder wall. This is nonspecific, and not particularly masslike in appearance. This could reflect po st therapy change or other chronic mild wall thickening. Mild residual/recurren t neoplasm it is difficult to completely exclude however. No evidence for metastatic disease. Bilateral nephrolithiasis, as detailed above. Stable left adrenal adenomas.
[2022-10-31 07:10] LABS: Estimated Glomerular Filt Rate > 60
== END 2022-10-31 06:46 | disposition home or self-care (01) ==
PROVIDERS: PCP Family Medicine; Visit Provider Urology
DX: C67.4 Malignant neoplasm of posterior wall of bladder (principal); D35.02 Benign neoplasm of left adrenal gland; N20.0 Calculus of kidney
CPT/HCPCS: 74178; Q9967

== ENCOUNTER 2023-01-12 10:15 | Outpatient (CLI) | payer MEDICARE, SELFPAY ==
[2023-01-12 20:47] LABS: Alanine Aminotransferase 27 U/L (6-50); Alkaline Phosphatase 84 U/L (38-126); Anion Gap 7 mmol/L (8-16); Aspartate Amino Transferase 30 U/L (17-59); Bilirubin,Total 0.6 mg/dL (0.2-1.3); Blood Urea Nitrogen 16 mg/dL (9-20); Calcium 9.8 mg/dL (8.4-10.2); Carbon Dioxide 30 mmol/L (22-30); Chloride 103 mmol/L (98-107); Cholesterol 157 mg/dL (0-200); Estimated Glomerular Filt Rate > 60; Glucose 91 mg/dL (65-110); HDL Direct 44 mg/dL; Potassium 4.1 mmol/L (3.4-5.0); Sodium 140 mmol/L (137-145); Triglycerides 79 mg/dL (<150)
[2023-01-12 20:58] LABS: LDL Cholesterol Direct 85 mg/dL
[2023-01-12 21:31] LABS: Hemoglobin A1C 5.9 % (<5.7)
== END 2023-01-12 10:16 | disposition home or self-care (01) ==
PROVIDERS: PCP Family Medicine; Visit Provider Physician Assistant
DX: Z13.220 Encounter for screening for lipoid disorders (principal); Z13.1 Encounter for screening for diabetes mellitus; E11.9 Type 2 diabetes mellitus without complications
CPT/HCPCS: 36415; 80053; 80061; 83036

== ENCOUNTER 2023-06-12 09:07 | Outpatient (CLI) | payer MEDICARE, SELFPAY ==
--- NOTE | 2023-06-12 09:14 | ECG_ITS ---
Measurements Intervals [place] Rate: 69 P: 64 [place]: [id number] QRS: 117 QRSD: 100 T: 74 QT: 308 QTc: 332 Interpretive Statements SINUS RHYTHM WITH FIRST DEGREE AV BLOCK FREQUENT ATRIAL PREMATURE COMPLEXES LEFT POSTERIOR FASCICULAR BLOCK BORDERLINE T WAVE ABNORMALITY- HIGH LATERAL LEADS BASELINE ARTIFACT- I, III, AVR, AVL ABNORMAL ECG COMPARED TO ECG 02/03/2022 08:13:43 FIRST DEGREE AV BLOCK NOW PRESENT LEFT POSTERIOR FASCICULAR BLOCK NOW PRESENT Electronically Signed On 06-12-2023 9:27:29 CDT by Joseluis Lundberg D.O.
== END 2023-06-12 09:08 | disposition home or self-care (01) ==
LOC: ANHSURGERY 09:11
PROVIDERS: PCP Family Medicine; Visit Provider Urology
DX: I10 Essential (primary) hypertension (principal); Z01.818 Encounter for other preprocedural examination
CPT/HCPCS: 93005

== ENCOUNTER 2023-06-18 01:36 | Day surgery (SDC) | payer MEDICARE, SELFPAY ==
[2023-06-11 14:37] VITALS: BMI 25.9
--- NOTE | 2023-06-11 14:45 | PC.NURSE ---
Addendum entered by Tiffani Shelley RN 06/12/23 13:06: PT INFORMED TO ARRIVE AT 0700 NOT 0600 ON 06/18/23 FOR SURGERY @ 0900 - UNDERSTANDING VOICED Original Note: PRE-OP INSTRUCTIONS, PLEASE READ CAREFULLY Report to the Outpatient Waiting Room, entrance under the green pavilion located off [facility], at time _0600_ on date _06/18/23_. Planned Procedure Time: _0900_. Time changes happen often and if your time is changed the preop area will call you the afternoon before. - You and your visitor will be asked to self-screen and do not enter if you have any COVID symptoms. - A mask is optional within the hospital at this time. Patients may have clear liquids (water, carbonated beverages, clear teas, apple juice) until 3 hours prior to surgery (0600 AM) with a maximum of 20 ounces. - No food from midnight until time of surgery Take the following medications with a SIP of water the morning of surgery: _INHALER, EYE DROPS_ DO NOT STOP ANY OF YOUR OTHER PRESCRIPTION MEDICATIONS PRIOR TO SURGERY ?EXCEPT THE FOLLOWING Medications to discontinue _PT STATES ALREADY STOPPING ASPIRIN, VITAMINS, SUPPLEMENTS 06/09/23_ Please no make-up, nail north korean, hairspray, perfume, deodorant, or body powder the day of surgery. No jewelry (including any body piercings) or valuables the day of surgery, leave them at home. Please take a shower or bath the night before, or the morning of, surgery with an antibacterial soap. Wear comfortable, loose fitting clothing. - Jewelry must be removed prior to entering the operating room. Rings and piercings that are not removed may be cut off. - The hospital will not accept responsibility for valuables. - Please leave all valuables, including medications, at home the day of surgery. If you are going home after surgery, a licensed escort vehicle driver must drive you home. - NO public transportation without another adult if you receive anesthesia. - We recommend that an adult stay with you for 24 hours following discharge. - We also recommend that you do not drive, make important decision, drink alcoholic beverages, or take any drugs that were not prescribed by your health care provider for at least 24 hours after your discharge time. Follow any additional instructions given to you from your surgeon. If you or anyone in your household have experienced Covid symptoms in the past week, please notify your surgeon or the nurse liaison at the phone number below for possible testing. Telephone instructions given to _PATIENT_and asked if any additional questions and then verbalized understanding. Patient advised to call surgeon office or pre surgery nurse liaison [phone] if any additional questions.
--- NOTE | 2023-06-16 07:05 | PM.HPGS ---
History of Present Illness History of Present Illness Consent: Risks, benefits, and alternatives have been discussed and questions answered. Patient agrees to proceed with procedure. Chief complaint: bladder CA Narrative: Francisco Kaiser is a 83 year old male with a history of recurrent urothelial carcinoma of the bladder. to recent outpatient surveillance cystoscopies have showed an area of hyperemia in the posterior bladder wall of uncertain significance. That does, however, raised concern for carcinoma in Situ. I have scheduled him for cystoscopy with possible TURBT, bladder biopsy. He is aware of the risks including, but not limited to, hematuria, need for additional intervention. Review of Systems Review of Systems: All systems reviewed & are unremarkable except as noted in HPI and below PMFSH Past Medical History Medical History Anxiety Bladder cancer Colon cancer Denies colonoscopy (12/2021) COPD mixed type Hyperlipidemia Lung nodules MVP (mitral valve prolapse) Nasal sinus tumor Prostate cancer Smoker Surgical History Surgical History Hx of cataract extraction Family History Family History Father Acute myocardial infarction Malignant neoplasm of prostate Family history of malignant neoplasm of bone Mother Family history of arthritis Social History Social History Smoking packs per day: 1 Smoking cigarettes per day: 20.0 Years smoked: 51 Smoking pack-years: 51.00 Smoking status: Current every day smoker Tobacco type: cigarettes Second hand tobacco smoke exposure: Yes Alcohol intake: never Substance use: never Substance use type: does not use Lack of Transportation: No Lack of Food: Never True Current Housing: I Have Housing Concerned About Future Housing: No Difficulty Paying Gas/Electric Bills: No Difficulty Paying for Meds: No Currently Unemployed: No Education: Master's Degree or Higher Living arrangements: with family Additional living arrangements comments: LIVES WITH SPOUE GRAHAM Occupation/Education: retired Gender identity (if verbalized by the patient): Male Spiritual care concerns: No Agree to blood products: Yes Meds Home Medications and Allergies Home Medications Medication Instructions Recorded Confirmed Type coQ10 (ubiquinol) 200 mg capsule 400 mg PO DAILY 08/17/19 06/11/23 History krill oil 500 mg capsule 350 mg PO DAILY 08/17/19 06/11/23 History multivitamin 1 tablet PO DAILY 08/17/19 06/11/23 History albuterol sulfate 90 mcg/actuation 2 inh inhalation Q4H PRN shortness 01/01/21 06/11/23 Rx aerosol inhaler (ProAir HFA) of breath or wheezing #8.5 grams aspirin 81 mg tablet,delayed 81 mg PO .every other day 07/10/21 06/11/23 History release cyclosporine 0.05 % eye drops 1 drp EACH EYE Q12H 07/10/21 06/11/23 History (Restasis MultiDose) carboxymethylcellulose sodium 0.5 1 drp EACH EYE BID 11/01/21 06/11/23 History % eye drops (Refresh Tears) losartan 25 mg tablet 25 mg PO DAILY #90 tabs 10/31/22 06/11/23 Rx atorvastatin 20 mg tablet 20 mg PO DAILY #90 tabs 01/23/23 06/11/23 Rx fluticasone 250 mcg-salmeterol 50 See Rx Instructions .Route 05/06/23 06/11/23 Rx mcg/dose blistr powdr for .COMPLEX #60 ea inhalation (Wixela Inhub) glucosamine sulf dipot 2 cap PO DAILY 06/11/23 06/11/23 History chlr,msm,chond 550 mg-C 30 mg-alma 1 mg capsule (Glucosamine Chondroitin) ipratropium bromide 21 mcg (0.03 2 spray intranasal TID PRN DRYNESS 06/11/23 06/11/23 History %) nasal spray Allergies Allergy/AdvReac Type Severity Reaction Status Date / Time No Known Allergies Allergy NONE Verified 06/11/23 14:31 Exam Const: General: no acute distress Resp: Effort & Inspection: normal respiratory effort GI: Inspection: non-
[2023-06-18] VITALS (7 sets, daily range): BP systolic 121–160; BP diastolic 57–92; PULSE 55–67; RESP 15–18; TEMP 36.2–37; O2SAT 95–100
--- NOTE | 2023-06-18 05:59 | WPDHPUPDATE1 ---
History and Physical Update Update Date/Time: 06/18/23 05:59 History and Physical has been reviewed, including an updated exam of the patient. There are NO changes in the patient's condition. Risks, benefits, and alternatives have been discussed and questions answered. Patient agrees to proceed with procedure.
[2023-06-18] MEDS: LACTATED RINGERS 1,000 ML 30 ML IV CONT (07:12)
--- NOTE | 2023-06-18 07:58 | WPDANESEPPF ---
Anes - Initial Pre Proc Eval Procedure: Operation Date: 06/18/23 08:30 Proposed Procedures p Trans Urethral Resection Bladder Tumor, - Javier Mixon MD s Cystoscopy, Bladder Biopsy - Javier Mixon MD Date/Time: 06/18/23 07:58 Surgeon: Javier Mixon MD Pre Op Diagnosis: bladder CA Patient Data Age: 83 Gender: M Height: 1.7 m Weight: 76 kg Last Vital Signs Temp 97.1 F L 06/18/23 06:46 Pulse 66 06/18/23 06:46 Resp 18 06/18/23 06:46 BP 155/71 H 06/18/23 06:46 Pulse Ox 95 06/18/23 06:46 O2 Del Method Room Air 06/18/23 06:46 Allergies Allergy/AdvReac Type Severity Reaction Status Date / Time No Known Allergies Allergy NONE Verified 06/11/23 14:31 Home Medications Medication Instructions Recorded Confirmed Type coQ10 (ubiquinol) 200 mg capsule 400 mg PO DAILY 08/17/19 06/11/23 History krill oil 500 mg capsule 350 mg PO DAILY 08/17/19 06/11/23 History multivitamin 1 tablet PO DAILY 08/17/19 06/11/23 History albuterol sulfate 90 mcg/actuation 2 inh inhalation Q4H PRN shortness 01/01/21 06/11/23 Rx aerosol inhaler (ProAir HFA) of breath or wheezing #8.5 grams aspirin 81 mg tablet,delayed 81 mg PO .every other day 07/10/21 06/11/23 History release cyclosporine 0.05 % eye drops 1 drp EACH EYE Q12H 07/10/21 06/11/23 History (Restasis MultiDose) carboxymethylcellulose sodium 0.5 1 drp EACH EYE BID 11/01/21 06/11/23 History % eye drops (Refresh Tears) losartan 25 mg tablet 25 mg PO DAILY #90 tabs 10/31/22 06/11/23 Rx atorvastatin 20 mg tablet 20 mg PO DAILY #90 tabs 01/23/23 06/11/23 Rx fluticasone 250 mcg-salmeterol 50 See Rx Instructions .Route 05/06/23 06/11/23 Rx mcg/dose blistr powdr for .COMPLEX #60 ea inhalation (Wixela Inhub) glucosamine sulf dipot 2 cap PO DAILY 06/11/23 06/11/23 History chlr,msm,chond 550 mg-C 30 mg-alma 1 mg capsule (Glucosamine Chondroitin) ipratropium bromide 21 mcg (0.03 2 spray intranasal TID PRN DRYNESS 06/11/23 06/11/23 History %) nasal spray Patient hx anesthesia problems: none Family hx anesthesia problems: none Results Review: All pre-operative results and documents have been reviewed as part of the pre-operative evaluation. [facility] Past Medical History Medical History Anxiety Bladder cancer Colon cancer Denies colonoscopy (12/2021) COPD mixed type Hyperlipidemia Lung nodules MVP (mitral valve prolapse) Nasal sinus tumor Prostate cancer Smoker Surgical History Surgical History Hx of cataract extraction Family History Family History Father Acute myocardial infarction Malignant neoplasm of prostate Family history of malignant neoplasm of bone Mother Family history of arthritis Social History Social History Smoking packs per day: 1 Smoking cigarettes per day: 20.0 Years smoked: 51 Smoking pack-years: 51.00 Smoking status: Current every day smoker Tobacco type: cigarettes Second hand tobacco smoke exposure: Yes Alcohol intake: never Substance use: never Substance use type: does not use Lack of Transportation: No Lack of Food: Never True Current Housing: I Have Housing Concerned About Future Housing: No Difficulty Paying Gas/Electric Bills: No Difficulty Paying for Meds: No Currently Unemployed: No Education: Master's Degree or Higher Living arrangements: with family Additional living arrangements comments: LIVES WITH FLAKO STEVENSON Occupation/Education: retired Gender identity (if verbalized by the patient): Male Spiritual care concerns: No Agree to blood products: Yes Anes - Eval Final PreProcedure Day of Procedure 06/18/23 07:58 Patient weight: normal Heart: regular rate and rhythm Lungs: clear to auscultation Airway: Mallampati scale class II Neurol
[2023-06-18] MEDS: ceFAZolin 2 GM/D5W 50 ML 2 GM/50 ML BAG IVPB (08:08)
[2023-06-18] MEDS: LIDOCAINE HCL 2% GEL UROJET 10 ML PKG MUCOUS MEM (08:27)
--- NOTE | 2023-06-18 08:48 | W.PM.PROC2 ---
Procedure Note - Detailed Date of Procedure 06/18/23 Pre-op Diagnosis bladder CA Post-op Diagnosis Same Procedure Performed 1. Cystoscopy with urethral dilatation 2. TURBT ( medium, 3 cm) Surgeon Javier Mixon MD Anesthesia General Description of Procedure Patient is brought to the operative suite was prepped draped in routine sterile fashion while in dorsal lithotomy position after the uneventful induction of a general LMA anesthetic. 2% xylocaine jelly was introduced intraurethrally and allowed to stand for an appropriate period of time. I was unable to place a 24 F resectoscope without 1st dilating his bulbous urethra from 18-26 F. I then placed the resectoscope. The bladder was carefully inspected. The only area of abnormalities in the right posterior lateral bladder wall where he has now not only hyperemia but the suggestion of a small neoplastic growth. This area was resected in its entirety and the base and periphery were cauterized with the 3 mm rollerball. The remainder of the bladder was endoscopically normal without oniel neoplasm or mucosal hyperemia. Drains No
== END 2023-06-18 10:23 | disposition home or self-care (01) ==
PROVIDERS: PCP Family Medicine; Visit Provider Urology
PROC: 0TBB8ZZ Excision of Bladder, Via Natural or Artificial Opening Endoscopic (ICD-10-PCS; CPT 52235; principal; 2023-06-18 08:30)
PROC: 0TBB8ZX Excision of Bladder, Via Natural or Artificial Opening Endoscopic, Diagnostic (ICD-10-PCS; CPT 52204; 2023-06-18 08:30)
DX: C67.2 Malignant neoplasm of lateral wall of bladder (principal); F41.9 Anxiety disorder, unspecified; J44.1 Chronic obstructive pulmonary disease with (acute) exacerbation; E78.5 Hyperlipidemia, unspecified; F17.210 Nicotine dependence, cigarettes, uncomplicated; Z79.51 Long term (current) use of inhaled steroids; Z79.82 Long term (current) use of aspirin; Z85.46 Personal history of malignant neoplasm of prostate; Z85.51 Personal history of malignant neoplasm of bladder; Z85.038 Personal history of other malignant neoplasm of large intestine; Z86.79 Personal history of other diseases of the circulatory system; Z80.42 Family history of malignant neoplasm of prostate; Z80.8 Family history of malignant neoplasm of other organs or systems; Z82.49 Family history of ischemic heart disease and other diseases of the circulatory system
CPT/HCPCS: 52235; 88305; 88342; 93005; J0690; J1100; J2405; J2704; J3010; J7030; J7120

== ENCOUNTER 2023-07-16 00:33 | Day surgery (SDC) | payer MEDICARE, SELFPAY ==
[2023-07-10 15:25] VITALS: BMI 25.9
--- NOTE | 2023-07-10 15:31 | PC.NURSE ---
Report to the Outpatient Waiting Room, entrance under the green pavilion located off [facility], at time __1145 on date __07/16/23 . Planned Procedure Time: ___1:45 PM . Time changes happen often and if your time is changed the preop area will call you the afternoon before. - You and your visitor will be asked to self-screen and do not enter if you have any COVID symptoms. - A mask is optional within the hospital at this time. Patients may have clear liquids (water, carbonated beverages, clear teas, apple juice) until 3 hours prior to surgery (1045 AM) with a maximum of 20 ounces. - No food from midnight until time of surgery - Infants may have breast milk until 4 hours before surgery, formula 6 hours prior to surgery. - Children will be allowed to drink immediately following surgery. If applicable, please bring a bottle or sippy cup to assist with drinking. Juice, water, soda, and popsicles are readily available. For infants on formula, please bring formula the day of surgery. Pacifiers are allowed. Take the following medications with a SIP of water the morning of surgery: ___INHALERS, EYE DROPS DO NOT STOP ANY OF YOUR OTHER PRESCRIPTION MEDICATIONS PRIOR TO SURGERY ?EXCEPT THE FOLLOWING Medications to discontinue per physician PT STATES STOPPING ASPIRIN, VITAMINS AND SUPPLEMENTS 07/09/23 Date to take last dose Please no make-up, nail prydeinig, hairspray, perfume, deodorant, or body powder the day of surgery. No jewelry (including any body piercings) or valuables the day of surgery, leave them at home. Please take a shower or bath the night before, or the morning of, surgery with an antibacterial soap. Wear comfortable, loose fitting clothing. Children are encouraged to wear pajamas. - Jewelry must be removed prior to entering the operating room. Rings and piercings that are not removed may be cut off. - The hospital will not accept responsibility for valuables. - Please leave all valuables, including medications, at home the day of surgery. If you are going home after surgery, a licensed local company intermodal truck driver must drive you home. - NO public transportation without another adult if you receive anesthesia. - We recommend that an adult stay with you for 24 hours following discharge. - We also recommend that you do not drive, make important decision, drink alcoholic beverages, or take any drugs that were not prescribed by your health care provider for at least 24 hours after your discharge time. For Pediatric surgeries, we recommend two adults accompany the child home. Follow any additional instructions given to you from your surgeon. If you or anyone in your household have experienced Covid symptoms in the past week, please notify your surgeon or the nurse liaison at the phone number below for possible testing. Telephone instructions given to ____PT and asked if any additional questions and then verbalized understanding. Patient advised to call surgeon office or pre surgery nurse liaison [phone] if any additional questions.
--- NOTE | 2023-07-15 06:45 | PM.HPGS ---
History of Present Illness History of Present Illness Consent: Risks, benefits, and alternatives have been discussed and questions answered. Patient agrees to proceed with procedure. Chief complaint: Bladder Ca Narrative: Francisco Kaiser is a 83 year old male with a known history of recurrent urothelial carcinoma of the bladder. Most recent resection showed a lesion that was invasive into the lamina propria. He now presents for re-resection of bladder tumor base Review of Systems Cardiovascular: Cardiovascular: Denies chest pain, Denies lightheadedness, Denies palpitations and Denies dyspnea Respiratory: Respiratory: Denies dyspnea Gastrointestinal: Gastrointestinal: Denies diarrhea, Denies nausea and Denies vomiting Genitourinary: Genitourinary: Denies hematuria and Denies dysuria Endocrine: Endocrine: Denies palpitations [facility] Past Medical History Medical History Anxiety Bladder cancer Colon cancer Denies colonoscopy (12/2021) COPD mixed type Hyperlipidemia Lung nodules MVP (mitral valve prolapse) Nasal sinus tumor Prostate cancer Smoker Surgical History Surgical History Hx of cataract extraction Family History Family History Father Acute myocardial infarction Malignant neoplasm of prostate Family history of malignant neoplasm of bone Mother Family history of arthritis Social History Social History Smoking packs per day: 1 Smoking cigarettes per day: 20.0 Years smoked: 51 Smoking pack-years: 51.00 Smoking status: Current every day smoker Tobacco type: cigarettes Second hand tobacco smoke exposure: Yes Alcohol intake: never Substance use: never Substance use type: does not use Lack of Transportation: No Lack of Food: Never True Current Housing: I Have Housing Concerned About Future Housing: No Difficulty Paying Gas/Electric Bills: No Difficulty Paying for Meds: No Currently Unemployed: No Education: Master's Degree or Higher Living arrangements: with family Additional living arrangements comments: LIVES WITH SPOUSE GRAHAM Occupation/Education: retired Gender identity (if verbalized by the patient): Male Spiritual care concerns: No Agree to blood products: Yes Meds Home Medications and Allergies Home Medications Medication Instructions Recorded Confirmed Type coQ10 (ubiquinol) 200 mg capsule 400 mg PO DAILY 08/17/19 07/10/23 History krill oil 500 mg capsule 350 mg PO DAILY 08/17/19 07/10/23 History multivitamin 1 tablet PO DAILY 08/17/19 07/10/23 History albuterol sulfate 90 mcg/actuation 2 inh inhalation Q4H PRN shortness 01/01/21 07/10/23 Rx aerosol inhaler (ProAir HFA) of breath or wheezing #8.5 grams aspirin 81 mg tablet,delayed 81 mg PO .every other day 07/10/21 07/10/23 History release cyclosporine 0.05 % eye drops 1 drp EACH EYE Q12H 07/10/21 07/10/23 History (Restasis MultiDose) carboxymethylcellulose sodium 0.5 1 drp EACH EYE BID 11/01/21 07/10/23 History % eye drops (Refresh Tears) losartan 25 mg tablet 25 mg PO DAILY #90 tabs 10/31/22 07/10/23 Rx atorvastatin 20 mg tablet 20 mg PO DAILY #90 tabs 01/23/23 07/10/23 Rx fluticasone 250 mcg-salmeterol 50 See Rx Instructions .Route 05/06/23 07/10/23 Rx mcg/dose blistr powdr for .COMPLEX #60 ea inhalation (Wixela Inhub) glucosamine sulf dipot 2 cap PO DAILY 06/11/23 07/10/23 History chlr,msm,chond 550 mg-C 30 mg-alma 1 mg capsule (Glucosamine Chondroitin) ipratropium bromide 21 mcg (0.03 2 spray intranasal TID PRN DRYNESS 06/11/23 07/10/23 History %) nasal spray Allergies Allergy/AdvReac Type Severity Reaction Status Date / Time No Known Allergies Allergy NONE Verified 07/10/23 15:24 Exam Const: General: no acute distress Resp: Effort & Insp
--- NOTE | 2023-07-16 06:08 | WPDHPUPDATE1 ---
History and Physical Update Update Date/Time: 07/16/23 06:08 History and Physical has been reviewed, including an updated exam of the patient. There are NO changes in the patient's condition. Risks, benefits, and alternatives have been discussed and questions answered. Patient agrees to proceed with procedure.
[2023-07-16 12:01] VITALS: BP 133/83; PULSE 70; RESP 16; TEMP 36.3; O2SAT 97
[2023-07-16] MEDS: LACTATED RINGERS 1,000 ML 30 ML IV CONT (12:23)
--- NOTE | 2023-07-16 13:45 | WPDANESEPPF ---
Anes - Initial Pre Proc Eval Procedure: Operation Date: 07/16/23 13:45 Proposed Procedures p Re-Resection of Bladder Tumor Base - Javier Mixon MD Date/Time: 07/16/23 13:45 Surgeon: Javier Mixon MD Pre Op Diagnosis: Bladder Ca Patient Data Age: 83 Gender: M Height: 1.7 m Weight: 74.4 kg Last Vital Signs Temp 97.3 F L 07/16/23 12:01 Pulse 70 07/16/23 12:01 Resp 16 07/16/23 12:01 BP 133/83 07/16/23 12:01 Pulse Ox 97 07/16/23 12:01 O2 Del Method Room Air 07/16/23 12:01 Allergies Allergy/AdvReac Type Severity Reaction Status Date / Time No Known Allergies Allergy NONE Verified 07/16/23 11:52 Home Medications Medication Instructions Recorded Confirmed Type coQ10 (ubiquinol) 200 mg capsule 400 mg PO DAILY 08/17/19 07/10/23 History krill oil 500 mg capsule 350 mg PO DAILY 08/17/19 07/10/23 History multivitamin 1 tablet PO DAILY 08/17/19 07/10/23 History albuterol sulfate 90 mcg/actuation 2 inh inhalation Q4H PRN shortness 01/01/21 07/10/23 Rx aerosol inhaler (ProAir HFA) of breath or wheezing #8.5 grams aspirin 81 mg tablet,delayed 81 mg PO .every other day 07/10/21 07/10/23 History release cyclosporine 0.05 % eye drops 1 drp EACH EYE Q12H 07/10/21 07/10/23 History (Restasis MultiDose) carboxymethylcellulose sodium 0.5 1 drp EACH EYE BID 11/01/21 07/10/23 History % eye drops (Refresh Tears) losartan 25 mg tablet 25 mg PO DAILY #90 tabs 10/31/22 07/10/23 Rx atorvastatin 20 mg tablet 20 mg PO DAILY #90 tabs 01/23/23 07/10/23 Rx fluticasone 250 mcg-salmeterol 50 See Rx Instructions .Route 05/06/23 07/10/23 Rx mcg/dose blistr powdr for .COMPLEX #60 ea inhalation (Wixela Inhub) glucosamine sulf dipot 2 cap PO DAILY 06/11/23 07/10/23 History chlr,msm,chond 550 mg-C 30 mg-alma 1 mg capsule (Glucosamine Chondroitin) ipratropium bromide 21 mcg (0.03 2 spray intranasal TID PRN DRYNESS 06/11/23 07/10/23 History %) nasal spray Patient hx anesthesia problems: none Family hx anesthesia problems: none Results Review: All pre-operative results and documents have been reviewed as part of the pre-operative evaluation. [facility] Past Medical History Medical History Anxiety Bladder cancer Colon cancer Denies colonoscopy (12/2021) COPD mixed type Hyperlipidemia Lung nodules MVP (mitral valve prolapse) Nasal sinus tumor Prostate cancer Smoker Surgical History Surgical History Hx of cataract extraction Family History Family History Father Acute myocardial infarction Malignant neoplasm of prostate Family history of malignant neoplasm of bone Mother Family history of arthritis Social History Social History Smoking packs per day: 1 Smoking cigarettes per day: 20.0 Years smoked: 51 Smoking pack-years: 51.00 Smoking status: Current every day smoker Tobacco type: cigarettes Second hand tobacco smoke exposure: Yes Alcohol intake: never Substance use: never Substance use type: does not use Lack of Transportation: No Lack of Food: Never True Current Housing: I Have Housing Concerned About Future Housing: No Difficulty Paying Gas/Electric Bills: No Difficulty Paying for Meds: No Currently Unemployed: No Education: Master's Degree or Higher Living arrangements: with family Additional living arrangements comments: LIVES WITH SPOUSE GRAHAM Occupation/Education: retired Gender identity (if verbalized by the patient): Male Spiritual care concerns: No Agree to blood products: Yes Anes - Eval Final PreProcedure Day of Procedure 07/16/23 13:45 Patient weight: normal Heart: regular rate and rhythm Lungs: clear to auscultation Airway: Mallampati scale (Overbite noted. ) class II Neurological: alert and oriented
[2023-07-16] MEDS: ceFAZolin 2 GM/D5W 50 ML 2 GM/50 ML BAG IVPB (14:01)
[2023-07-16] MEDS: LIDOCAINE HCL 2% GEL UROJET 10 ML PKG MUCOUS MEM (14:13)
--- NOTE | 2023-07-16 14:20 | P.OP_ITS ---
Procedure Note - Detailed Date of Procedure 07/16/23 Pre-op Diagnosis Bladder Ca Post-op Diagnosis Same Procedure Performed Re-resection bladder tumor base (TURBT, small, 3cm) Surgeon Javier Mixon MD Anesthesia General Description of Procedure patient is brought to the op suite he was prepped draped in routine sterile fashion dorsal lithotomy position after the uneventful administration of systemic sedation. 2% xylocaine jelly was introduced intraurethrally and systemic sedation is administered per the anesthesia department. Twenty-four F resectoscope was placed in his bladder. His bladder is unremarkable except for the recent site of resection in the right posterior lateral bladder wall. I re sected the base of this and cauterized the base and periphery. This was very close to the right ureteral orifice, the area of which I tried to avoid cauterization. patient's bladder was emptied. Scopes and wires removed he was taken recovery room good condition. Drains No Packing No Pathology Yes Complications No immediate complications Condition Stable Disposition PACU
[2023-07-16 14:27] VITALS: BP 124/73; PULSE 55; RESP 14; O2SAT 99
[2023-07-16 14:55] VITALS: BP 123/73; PULSE 61; RESP 20
[2023-07-16 15:25] VITALS: BP 157/71; PULSE 60; RESP 20
== END 2023-07-16 15:40 | disposition home or self-care (01) ==
PROVIDERS: PCP Family Medicine; Visit Provider Urology
PROC: 0TBB8ZZ Excision of Bladder, Via Natural or Artificial Opening Endoscopic (ICD-10-PCS; CPT 52234; principal; 2023-07-16 13:45)
DX: C67.2 Malignant neoplasm of lateral wall of bladder (principal); F41.9 Anxiety disorder, unspecified; J44.9 Chronic obstructive pulmonary disease, unspecified; E78.5 Hyperlipidemia, unspecified; I34.1 Nonrheumatic mitral (valve) prolapse; F17.210 Nicotine dependence, cigarettes, uncomplicated; Z79.51 Long term (current) use of inhaled steroids; Z79.82 Long term (current) use of aspirin; Z85.46 Personal history of malignant neoplasm of prostate; Z85.51 Personal history of malignant neoplasm of bladder; Z85.038 Personal history of other malignant neoplasm of large intestine; Z80.42 Family history of malignant neoplasm of prostate; Z80.8 Family history of malignant neoplasm of other organs or systems; Z82.49 Family history of ischemic heart disease and other diseases of the circulatory system
CPT/HCPCS: 52234; 88305; 88342; J0690; J2405; J2704; J3010; J7120

== ENCOUNTER 2023-11-26 09:20 | Outpatient (CLI) | payer MEDICARE, SELFPAY ==
--- NOTE | ~2023-11-26 | CT_ITS ---
CT of the Abdomen and Pelvis: Indication: Abdominal pain Technique: 2.5 mm axial scans were obtained through the abdomen and pelvis following intravenous adm inistration of 100 cc of Omnipaque 350. Dose reduction technique was used on this scan by utilizing a utomated exposure control and iterative reconstruction technique. The dose-length product (DLP) was 5 43.36 mGy-cm. COMPARISON: 10/31/2022 Findings: Scans through the lung bases measures stable lingular scarring. The liver, spleen, pancreas, gallbladder, and right adrenal gland are within normal limits. Bilateral nonobstructing renal stones are present, largest at the right lower pole measuring 8 mm in diameter. Left renal cysts present. Stable left adrenal nodules, compatible with adenomas. There are atheroscl erotic calcifications of the aorta. No lymphadenopathy. No bowel obstruction or bowel wall thickening. There is sigmoid diverticulosis. Images through the pelvis were performed. Questionable focal wall thickening at the urinary bladder a t the insertion of the right ureter (axial image 141 for example). No other pelvic mass evident. 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 No ascites. Impression: Possible focal wall thickening/enhancement of the urinary bladder at the right ureteral insertion. Fo liudmila malignancy cannot be completely excluded. Consider cystoscopy for direct inspection. Bilateral nonobstructing nephrolithiasis. Stable left adrenal adenomas. Reviewed, dictated and finalized at [facility]. Impression: Possible focal wall thickening/enhancement of the urinary bladder at the right ureteral insertion. Focal malignancy cannot be completely excluded. Consider cy stoscopy for direct inspection. Bilateral nonobstructing nephrolithiasis. Stable left adrenal adenomas.
[2023-11-26 09:55] LABS: Estimated Glomerular Filt Rate > 60
== END 2023-11-26 09:21 | disposition home or self-care (01) ==
LOC: ANHIMG 09:24
PROVIDERS: PCP Family Medicine; Visit Provider Family Medicine
DX: R10.32 Left lower quadrant pain (principal); C67.9 Malignant neoplasm of bladder, unspecified; Z85.038 Personal history of other malignant neoplasm of large intestine; N20.0 Calculus of kidney; D35.02 Benign neoplasm of left adrenal gland
CPT/HCPCS: 74177; Q9967

== ENCOUNTER 2023-12-17 01:19 | Day surgery (SDC) | payer MEDICARE, SELFPAY ==
[2023-12-10 13:27] VITALS: BMI 25.2
--- NOTE | 2023-12-10 13:53 | PC.NURSE ---
Report to the Outpatient Waiting Room, entrance under the green pavilion located off [facility], at time ___1:00PM____ on date ____12/17/23___. Planned Procedure Time: ___3:00PM .? Time changes happen often and if your time is changed the preop area will call you the afternoon before. - You and your visitor will be asked to self-screen and do not enter if you have any COVID symptoms. Please call surgeon if you need to reschedule. - A mask is optional within the hospital at this time. Patients may have clear liquids (water, carbonated beverages, clear teas, apple juice) until 3 hours prior to surgery with a maximum of 20 ounces. - No food from midnight until time of surgery and no smoking - Infants may have breast milk until 4 hours before surgery, infant formula 6 hours prior to surgery. - Children will be allowed to drink immediately following surgery.? If applicable, please bring a bottle or sippy cup to assist with drinking. Juice, water, soda, and popsicles are readily available.? For infants on formula, please bring formula the day of surgery.? Pacifiers are allowed. Take only the following medications with a SIP of water on the morning of surgery: WIXELA INHALER & EYE DROPS. MAY USE ALBUTEROL INHALER NEEDED. DO NOT STOP ANY OF YOUR OTHER PRESCRIPTION MEDICATIONS PRIOR TO SURGERY EXCEPT THE FOLLOWING Medications to discontinue per physician ___HOLD ASPIRIN & ALL VITAMINS/SUPPLEMENTS 7 DAYS PRE-OP PER DR BARBER Date to take last dose 12/09/23 Please no make-up, nail french, hairspray, perfume, deodorant, or body powder the day of surgery.? No jewelry (including any body piercings) or valuables the day of surgery, leave them at home.? Please take a shower or bath the night before, or the morning of, surgery with an antibacterial soap.? Wear comfortable, loose fitting clothing.? Children are encouraged to wear pajamas. - Jewelry must be removed prior to entering the operating room.? Rings and piercings that are not removed may be cut off. - The hospital will not accept responsibility for valuables.? - Please leave all valuables, including medications, at home the day of surgery. If you are going home after surgery, a licensed full service vending driver must drive you home.? - NO public transportation without another adult if you receive anesthesia. - We recommend that an adult stay with you for 24 hours following discharge. - We also recommend that you do not drive, make important decision, drink alcoholic beverages, or take any drugs that were not prescribed by your health care provider for at least 24 hours after your discharge time. For Pediatric surgeries, we recommend two adults accompany the child home. Follow any additional instructions given to you from your surgeon. Telephone instructions given to ___PATIENT and asked if any additional questions and then verbalized understanding. Patient advised to call surgeon office or pre surgery nurse liaison [phone] if any additional questions.
[2023-12-17] VITALS (8 sets, daily range): BP systolic 109–150; BP diastolic 54–76; PULSE 53–70; RESP 15–20; TEMP 36.1–36.3; O2SAT 92–98; BMI 25.3
--- NOTE | ~2023-12-17 | XR_ITS ---
EXAMINATION: XR retrograde pyelogram BI DATE: 12/17/2023 15:28 CDT INDICATION: BILATERAL RETROGRADE . TECHNIQUE: 3 fluoroscopic images, 4 cine clips of the bilateral abdomen and pelvis were obtained renuka ng bilateral retrograde pyelography, performed by Javier Mixon MD. I was not present during the procedure. Fluoroscopy exposure time was 34.1 seconds. Air Kerma 10.27 mGy. DAP 0.23805 mGym2. COMPARISON: None FINDINGS/IMPRESSION: Fluoroscopic documentation of bilateral retrograde pyelography. Please refer to the operative note fo r complete procedural details . Reviewed, dictated and finalized at location K.
--- NOTE | 2023-12-17 06:24 | WPDHPUPDATE1 ---
History and Physical Update Update Date/Time: 12/17/23 06:24 History and Physical has been reviewed, including an updated exam of the patient. There are NO changes in the patient's condition. Risks, benefits, and alternatives have been discussed and questions answered. Patient agrees to proceed with procedure.
--- NOTE | 2023-12-17 07:13 | PM.HPGS ---
History of Present Illness History of Present Illness Consent: Risks, benefits, and alternatives have been discussed and questions answered. Patient agrees to proceed with procedure. Chief complaint: hx of bladder CA Narrative: Francisco Kaiser is a 83 year old male - last bladder cancer treatment was a TURBT. The patient's last cystoscopy was normal. Note for Bladder cancer follow-up : . 08/2019: ?Ta, high-grade ?/ ?Intermediate Risk ?CT-abd/pelvis wo/ contrast: unremarkable 10/2022: ?CT-abd/pelvis w/wo contrast: normal 05/2023: ?T1, high-grade / High-risk 06/2023: ?Re-resection: Benign reactive tissue with muscle present, no residual urothelial carcinoma ?Will refer for induction BCG 09/2023: ?Completed iBCG 10/2023: Cysto: negative Patient now has a persistently abnormal urinary cytology. Review of Systems Review of Systems: All systems reviewed & are unremarkable except as noted in HPI and below PMFSH Past Medical History Medical History Anxiety Bladder cancer Colon cancer Denies colonoscopy (12/2021) COPD mixed type Hyperlipidemia Lung nodules MVP (mitral valve prolapse) Nasal sinus tumor Prostate cancer Smoker Surgical History Surgical History Hx of cataract extraction Family History Family History Father Acute myocardial infarction Malignant neoplasm of prostate Family history of malignant neoplasm of bone Mother Family history of arthritis Social History Social History Smoking packs per day: 1 Smoking cigarettes per day: 20.0 Years smoked: 55 Smoking pack-years: 55.00 Smoking status: Current every day smoker Tobacco type: cigarettes Second hand tobacco smoke exposure: Yes Alcohol intake: never Substance use: never Substance use type: does not use Lack of Transportation: No Lack of Food: Never True Current Housing: I Have Housing Concerned About Future Housing: No Difficulty Paying Gas/Electric Bills: No Difficulty Paying for Meds: No Currently Unemployed: No Education: Master's Degree or Higher Living arrangements: with family Additional living arrangements comments: AND DAUGHTER Occupation/Education: retired Gender identity (if verbalized by the patient): Male Spiritual care concerns: No Agree to blood products: Yes Meds Home Medications and Allergies Home Medications Medication Instructions Recorded Confirmed Type coQ10 (ubiquinol) 200 mg capsule 400 mg PO DAILY 08/17/19 12/10/23 History krill oil 500 mg capsule 500 mg PO DAILY 08/17/19 12/10/23 History multivitamin 1 tablet PO DAILY 08/17/19 12/10/23 History albuterol sulfate 90 mcg/actuation 2 inh inhalation Q4H PRN shortness 01/01/21 12/10/23 Rx aerosol inhaler (ProAir HFA) of breath or wheezing #8.5 grams aspirin 81 mg tablet,delayed 81 mg PO .every other day 07/10/21 12/10/23 History release cyclosporine 0.05 % eye drops 1 drp EACH EYE Q12H 07/10/21 12/10/23 History (Restasis MultiDose) carboxymethylcellulose sodium 0.5 1 drp EACH EYE QID PRN Dry Eyes 11/01/21 12/10/23 History % eye drops (Refresh Tears) glucosamine sulf dipot 2 cap PO DAILY 06/11/23 12/10/23 History chlr,msm,chond 550 mg-C 30 mg-alma 1 mg capsule (Glucosamine Chondroitin) ipratropium bromide 21 mcg (0.03 2 spray intranasal TID PRN Runny 06/11/23 12/10/23 History %) nasal spray Nose losartan 25 mg tablet 25 mg PO DAILY #90 tabs 08/04/23 12/10/23 Rx fluticasone 250 mcg-salmeterol 50 See Rx Instructions .Route 09/07/23 12/10/23 Rx mcg/dose blistr powdr for .COMPLEX #60 ea inhalation (Wixela Inhub) atorvastatin 20 mg tablet 20 mg PO DAILY #90 tabs 11/02/23 12/10/23 Rx cyclosporine 0.05 % eye drops in a 1 drp EACH EYE Q12H 12/10/23 12/10/23 History dropperette (Restasis) vibegron 75 mg tablet (Gemt
[2023-12-17] MEDS: LACTATED RINGERS 1,000 ML 30 ML IV CONT (13:00)
--- NOTE | 2023-12-17 14:38 | WPDANESEPPF ---
Anes - Initial Pre Proc Eval Procedure: Operation Date: 12/17/23 15:00 Proposed Procedures p Cystoscopy, Bilateral Retrograde Pyelography, Possible Bilateral Ureteroscopy, Possible Bladder Biopsy - Javier Mixon MD Date/Time: 12/17/23 14:38 Surgeon: Javier Mixon MD Pre Op Diagnosis: hx of bladder CA Patient Data Age: 83 Gender: M Height: 1.7 m Weight: 73.5 kg Last Vital Signs Temp 97.4 F L 12/17/23 13:35 Pulse 70 12/17/23 13:35 Resp 16 12/17/23 13:35 BP 109/54 L 12/17/23 13:35 Pulse Ox 96 12/17/23 13:35 O2 Del Method Room Air 12/17/23 13:35 Allergies Allergy/AdvReac Type Severity Reaction Status Date / Time No Known Allergies Allergy NONE Verified 12/17/23 13:33 Home Medications Medication Instructions Recorded Confirmed Type coQ10 (ubiquinol) 200 mg capsule 400 mg PO DAILY 08/17/19 12/10/23 History krill oil 500 mg capsule 500 mg PO DAILY 08/17/19 12/17/23 History multivitamin 1 tablet PO DAILY 08/17/19 12/17/23 History albuterol sulfate 90 mcg/actuation 2 inh inhalation Q4H PRN shortness 01/01/21 12/10/23 Rx aerosol inhaler (ProAir HFA) of breath or wheezing #8.5 grams aspirin 81 mg tablet,delayed 81 mg PO .every other day 07/10/21 12/17/23 History release cyclosporine 0.05 % eye drops 1 drp EACH EYE Q12H 07/10/21 12/17/23 History (Restasis MultiDose) carboxymethylcellulose sodium 0.5 1 drp EACH EYE QID PRN Dry Eyes 11/01/21 12/10/23 History % eye drops (Refresh Tears) glucosamine sulf dipot 2 cap PO DAILY 06/11/23 12/17/23 History chlr,msm,chond 550 mg-C 30 mg-alma 1 mg capsule (Glucosamine Chondroitin) ipratropium bromide 21 mcg (0.03 2 spray intranasal TID PRN Runny 06/11/23 12/10/23 History %) nasal spray Nose losartan 25 mg tablet 25 mg PO DAILY #90 tabs 08/04/23 12/10/23 Rx fluticasone 250 mcg-salmeterol 50 See Rx Instructions .Route 09/07/23 12/17/23 Rx mcg/dose blistr powdr for .COMPLEX #60 ea inhalation (Wixela Inhub) atorvastatin 20 mg tablet 20 mg PO DAILY #90 tabs 11/02/23 12/10/23 Rx cyclosporine 0.05 % eye drops in a 1 drp EACH EYE Q12H 12/10/23 12/10/23 History dropperette (Restasis) vibegron 75 mg tablet (Gemtesa) 75 mg PO DAILY 12/10/23 12/10/23 History Patient hx anesthesia problems: none Family hx anesthesia problems: none Results Review: All pre-operative results and documents have been reviewed as part of the pre-operative evaluation. [facility] Past Medical History Medical History Anxiety Bladder cancer Colon cancer Denies colonoscopy (12/2021) COPD mixed type Hyperlipidemia Lung nodules MVP (mitral valve prolapse) Nasal sinus tumor Prostate cancer Smoker Surgical History Surgical History Hx of cataract extraction Family History Family History Father Acute myocardial infarction Malignant neoplasm of prostate Family history of malignant neoplasm of bone Mother Family history of arthritis Social History Social History Smoking packs per day: 1 Smoking cigarettes per day: 20.0 Years smoked: 55 Smoking pack-years: 55.00 Smoking status: Current every day smoker Tobacco type: cigarettes Second hand tobacco smoke exposure: Yes Alcohol intake: never Substance use: never Substance use type: does not use Lack of Transportation: No Lack of Food: Never True Current Housing: I Have Housing Concerned About Future Housing: No Difficulty Paying Gas/Electric Bills: No Difficulty Paying for Meds: No Currently Unemployed: No Education: Master's Degree or Higher Living arrangements: with family Additional living arrangements comments: AND DAUGHTER Occupation/Education: retired Gender identity (if verbalized by the patient): Male Spiritual care concerns: No Agree to bloo
[2023-12-17] MEDS: ceFAZolin 2 GM/D5W 50 ML 2 GM/50 ML BAG IVPB (15:15)
--- NOTE | 2023-12-17 15:47 | SUR.OPER ---
cytology specimens sent to lab with [facility] Phyllis at 1537 Rickey in cytology received specimens from Phyllis at 1544
[2023-12-17] MEDS: LIDOCAINE HCL 2% GEL UROJET 10 ML PKG MUCOUS MEM (15:50)
--- NOTE | 2023-12-17 15:54 | W.PM.PROC2 ---
Procedure Note - Detailed Date of Procedure 12/17/23 Pre-op Diagnosis Hx. of bladder CA, recent abnormal cytology Post-op Diagnosis Same Procedure Performed cystoscopy, bilateral ureteral catheterization, bilateral retrograde pyelography, random bladder biopsy Surgeon Javier Mixon MD Anesthesia General Description of Procedure patient by the op suite was prepped and draped in routine sterile fashion while in dorsal lithotomy position. 2% xylocaine jelly was introduced intraurethrally and systemic sedation is administered per the anesthesia department. Cystoscopy was undertaken with a 19 F rigid cystoscope. There was no urethral stricture disease. He has had prior pelvic radiation for prostate cancer. His bladder mucosa is essentially normal without definitive hyperemia. There was mild trabeculation. There certainly is no oniel intravesical neoplasm and bodies. Has a single orthotopic ureteral orifice. Each collecting system was intubated with in a separate angiographic catheter. Renal pelvic wash was obtained and sent separately. Retrograde pyelography then demonstrated no points of obstruction filling defect or other identifiable pathology in the upper urinary tract. Using the cold cup forceps I obtained a couple random bladder biopsies and cauterized the base with a Bugbee electrode. Scopes were removed and patient was taken recovery room having tolerated the procedure well. Drains No Pathology Yes
== END 2023-12-17 17:35 | disposition home or self-care (01) ==
PROVIDERS: PCP Family Medicine; Visit Provider Urology
PROC: (CPT 52352; principal; 2023-12-17 15:00)
DX: Z08 Encounter for follow-up examination after completed treatment for malignant neoplasm (principal); N32.89 Other specified disorders of bladder; E78.5 Hyperlipidemia, unspecified; J44.9 Chronic obstructive pulmonary disease, unspecified; I34.1 Nonrheumatic mitral (valve) prolapse; F41.8 Other specified anxiety disorders; F17.210 Nicotine dependence, cigarettes, uncomplicated; Z79.51 Long term (current) use of inhaled steroids; Z79.82 Long term (current) use of aspirin; Z98.890 Other specified postprocedural states; Z85.51 Personal history of malignant neoplasm of bladder; Z85.038 Personal history of other malignant neoplasm of large intestine; Z85.46 Personal history of malignant neoplasm of prostate; Z80.42 Family history of malignant neoplasm of prostate; Z80.8 Family history of malignant neoplasm of other organs or systems; Z82.49 Family history of ischemic heart disease and other diseases of the circulatory system
CPT/HCPCS: 52204; 74420; 88108; 88305; C1758; C1769; J0690; J1100; J2405; J2704; J3010; J7120; Q9966

== ENCOUNTER 2024-01-12 17:32 | Emergency (ER) | payer MEDICARE, SELFPAY ==
[2024-01-12 17:39] VITALS: BP 149/68; PULSE 96; RESP 20; TEMP 38.2; O2SAT 93
--- NOTE | 2024-01-12 17:48 | ED.FEVER ---
HPI - Fever General Chief Complaint: Fever Stated Complaint: Fever Time Seen by Provider: 01/12/24 17:45 Source: patient Mode of arrival: ambulatory Limitations: no limitations History of Present Illness HPI Narrative: Francisco is an 83-year-old male patient presenting to the clinic today with complaints of fever, unsteady gait, weakness, diarrhea with incontinence, and increased respirations per daughter. Patient received his 2nd dose of BCG chemotherapy for bladder cancer this morning and his symptoms started shortly afterwards. Highest fever was 102 at home 5:00p.m. Related Data Home Medications Medication Instructions Recorded Confirmed coQ10 (ubiquinol) 200 mg capsule 400 mg PO DAILY 08/17/19 01/12/24 krill oil 500 mg capsule 500 mg PO DAILY 08/17/19 01/12/24 multivitamin 1 tablet PO DAILY 08/17/19 01/12/24 aspirin 81 mg tablet,delayed 81 mg PO .every other day 07/10/21 01/12/24 release cyclosporine 0.05 % eye drops 1 drp EACH EYE Q12H 07/10/21 01/12/24 (Restasis MultiDose) carboxymethylcellulose sodium 0.5 1 drp EACH EYE QID PRN Dry Eyes 11/01/21 01/12/24 % eye drops (Refresh Tears) glucosamine sulf dipot 2 cap PO DAILY 06/11/23 01/12/24 chlr,msm,chond 550 mg-C 30 mg-alma 1 mg capsule (Glucosamine Chondroitin) ipratropium bromide 21 mcg (0.03 2 spray intranasal TID PRN Runny 06/11/23 01/12/24 %) nasal spray Nose cyclosporine 0.05 % eye drops in a 1 drp EACH EYE Q12H 12/10/23 01/12/24 dropperette (Restasis) vibegron 75 mg tablet (Gemtesa) 75 mg PO DAILY 12/10/23 01/12/24 Allergies Allergy/AdvReac Type Severity Reaction Status Date / Time No Known Allergies Allergy NONE Verified 01/12/24 18:00 Review of Systems Review of Systems: Pertinent positives per HPI. Patient denies any rash, headache, visual changes, dizziness, cough, runny nose, sore throat, chest pain, palpitations, nausea, vomiting, constipation, abdominal pain, or any urinary issues. PMFSH Past Medical History Medical History Anxiety Bladder cancer Colon cancer Denies colonoscopy (12/2021) COPD mixed type Hyperlipidemia Lung nodules MVP (mitral valve prolapse) Nasal sinus tumor Prostate cancer Smoker Surgical History Surgical History Hx of cataract extraction Family History Family History Father Acute myocardial infarction Malignant neoplasm of prostate Family history of malignant neoplasm of bone Mother Family history of arthritis Social History Social History Smoking packs per day: 1 Smoking cigarettes per day: 20.0 Years smoked: 55 Smoking pack-years: 55.00 Smoking status: Current every day smoker Tobacco type: cigarettes Second hand tobacco smoke exposure: Yes Alcohol intake: never Substance use: never Substance use type: does not use Lack of Transportation: No Lack of Food: Never True Current Housing: I Have Housing Concerned About Future Housing: No Difficulty Paying Gas/Electric Bills: No Difficulty Paying for Meds: No Currently Unemployed: No Education: Master's Degree or Higher Living arrangements: with family Additional living arrangements comments: AND DAUGHTER Occupation/Education: retired Gender identity (if verbalized by the patient): Male Spiritual care concerns: No Agree to blood products: Yes Comments At the time of my signature, I reviewed and agree with the nursing past medical, surgical, social, and family history. There is no relevant family history pertinent to the patient complaint. Exam Narrative: General: Well-developed, well nourished, acutely ill-appearing Head: Normocephalic, atraumatic. Cardio: Regular rate and rhythm, s1 and s2 normal, no murmur appreciated. Resp: Diminished breath sounds in the bases, no rhonchi, rales, wheezing or rubs. Abdome
== END 2024-01-12 18:05 | disposition short-term general hospital (02) ==
PROVIDERS: Emergency Provider Nurse Practitioner Family; PCP Family Medicine
DX: R53.1 Weakness (principal); R06.02 Shortness of breath; R50.9 Fever, unspecified; R19.7 Diarrhea, unspecified; C67.9 Malignant neoplasm of bladder, unspecified; Z79.60 Long term (current) use of unspecified immunomodulators and immunosuppressants; F17.210 Nicotine dependence, cigarettes, uncomplicated; J44.9 Chronic obstructive pulmonary disease, unspecified; E78.5 Hyperlipidemia, unspecified; I34.1 Nonrheumatic mitral (valve) prolapse; Z85.46 Personal history of malignant neoplasm of prostate; Z85.038 Personal history of other malignant neoplasm of large intestine; Z79.82 Long term (current) use of aspirin
CPT/HCPCS: 99212; G0463

== ENCOUNTER 2024-01-12 18:28 | Observation (INO) | payer MEDICARE, SELFPAY ==
--- NOTE | ~2024-01-12 | XR_ITS ---
CHEST RADIOGRAPH CLINICAL HISTORY: infection . COMPARISON: 03/03/2015 TECHNIQUE: Single portable view of the chest. FINDINGS The cardiomediastinal silhouette is unremarkable. Platelike atelectasis within the left mid to lower lung field, an interval change. Calcified granuloma within the left upper lobe, unchanged. The remainder of the lungs are clear. Visualized osseous structures and soft tissues are unremarkable. IMPRESSION: Platelike atelectasis within the left mid to lower lung field, without focal infiltrate or effusion. Reviewed, dictated and finalized at location A. IMPRESSION: Platelike atelectasis within the left mid to lower lung field, without focal in filtrate or effusion.
[2024-01-12 18:36] VITALS: BP 128/58; PULSE 118; RESP 16; TEMP 37.8; O2SAT 92
[2024-01-12 18:57] VITALS: TEMP 38.7
[2024-01-12] MEDS: ACETAMINOPHEN 500 MG TABLET 1000 MG PO (19:01)
--- NOTE | 2024-01-12 19:16 | ED.FEVER ---
HPI - Fever General Chief Complaint: Fever Stated Complaint: fever Time Seen by Provider: 01/12/24 19:02 History of Present Illness HPI Narrative: Patient is an 83-year-old male who presents to the emergency department this evening accompanied by his daughter due to concern for a fever and lethargy. Patient started his 2nd round of BCG treatment for bladder cancer prevention today. Patient has a history of bladder cancer which is in remission and follows up with Dr. Mixon as his urologist. Daughter states that they are doing a 2nd round of BCG treatment as a preventative measure. Dr. Fisher did a bladder and kidney biopsy approximately 3 weeks ago. Daughter states that she noticed that the patient was febrile and more tired/lethargic today. Patient is answering my questions appropriately and is currently denying any symptoms. He is alert and oriented to person, place, time and situation. Daughter states that he has had a few rounds of diarrhea today which is not unusual for him. No additional symptoms or concerns at this time. Related Data Home Medications Medication Instructions Recorded Confirmed coQ10 (ubiquinol) 200 mg capsule 400 mg PO DAILY 08/17/19 01/12/24 krill oil 500 mg capsule 500 mg PO DAILY 08/17/19 01/12/24 multivitamin 1 tablet PO DAILY 08/17/19 01/12/24 aspirin 81 mg tablet,delayed 81 mg PO .every other day 07/10/21 01/12/24 release cyclosporine 0.05 % eye drops 1 drp EACH EYE Q12H 07/10/21 01/12/24 (Restasis MultiDose) carboxymethylcellulose sodium 0.5 1 drp EACH EYE QID PRN Dry Eyes 11/01/21 01/12/24 % eye drops (Refresh Tears) glucosamine sulf dipot 2 cap PO DAILY 06/11/23 01/12/24 chlr,msm,chond 550 mg-C 30 mg-alma 1 mg capsule (Glucosamine Chondroitin) ipratropium bromide 21 mcg (0.03 2 spray intranasal TID PRN Runny 06/11/23 01/12/24 %) nasal spray Nose cyclosporine 0.05 % eye drops in a 1 drp EACH EYE Q12H 12/10/23 01/12/24 dropperette (Restasis) vibegron 75 mg tablet (Gemtesa) 75 mg PO DAILY 09/19/24 10/22/24 Allergies Allergy/AdvReac Type Severity Reaction Status Date / Time No Known Allergies Allergy NONE Verified 01/12/24 18:00 Review of Systems Review of Systems: All systems are reviewed and are negative unless stated otherwise in the HPI. FORMERLY [facility], [facility] Past Medical History Medical History Anxiety Bladder cancer Colon cancer Denies colonoscopy (12/2021) COPD mixed type Hyperlipidemia Lung nodules MVP (mitral valve prolapse) Nasal sinus tumor Prostate cancer Smoker Surgical History Surgical History Hx of cataract extraction Family History Family History Father Acute myocardial infarction Malignant neoplasm of prostate Family history of malignant neoplasm of bone Mother Family history of arthritis Social History Social History Smoking packs per day: 1 Smoking cigarettes per day: 20.0 Years smoked: 55 Smoking pack-years: 55.00 Smoking status: Current every day smoker Tobacco type: cigarettes Second hand tobacco smoke exposure: Yes Alcohol intake: never Substance use: never Substance use type: does not use Lack of Transportation: No Lack of Food: Never True Current Housing: I Have Housing Concerned About Future Housing: No Difficulty Paying Gas/Electric Bills: No Difficulty Paying for Meds: No Currently Unemployed: No Education: Master's Degree or Higher Living arrangements: with family Additional living arrangements comments: AND DAUGHTER Occupation/Education: retired Gender identity (if verbalized by the patient): Male Spiritual care concerns: No Agree to blood products: Yes Exam Narrative: General: Alert, awake, afebrile, in no acute distress. HEENT: PERRL, no rhinorrhea, no post nasal drip, oropharynx clear. Cardiovascular: Regular rate and rhythm, no murmurs, rubs or gallops, no peripheral edema. Respiratory: Clear to auscultation bilaterally, no tachypnea, no wheezing, no rhonchi, no rubs, no respiratory distress. Abdomen: Soft, nontender, nondistended, no rebound, no guarding, no peritoneal signs. Musculoskeletal: No joint swelling or deformity, normal muscle tone. Skin: No rashes or petechia, no signs of infection. Neurological: Alert and oriented to person, place, and time. Follows all commands. No focal deficits, speech is clear and fluent. Course Vital Signs Vital signs: Vital Signs Temperature 100.0 F H 01/12/24 18:36 Pulse Rate 118 H 01/12/24 18:36 Respiratory Rate 16 01/12/24 18:36 Blood Pressure 128/58 L 01/12/24 18:36 Pulse Oximetry 92 01/12/24 18:36 Temperature 101.6 F H 01/12/24 18:57 Pulse Rate 65 01/12/24 20:27 Respiratory Rate 21 H 01/12/24 20:27 Blood Pressure 104/65 01/12/24 20:27 Pulse Oximetry 94 01/12/24 20:27 MDM - Fever MDM Narrative Medical decision making narrative: The patient was evaluated by myself in the emergency department. History is obtained from patient who is an independent historian and physical exam was performed. External medical records were reviewed at this time. IV was established and pertinent tests were ordered. Patient was administered a 1 L IV fluid bolus with normal saline. Laboratory results obtained revealing no acute process. Urinalysis did reveal a urinary tract infection. Patient was started on IV Rocephin 1 g at this time. Imaging studies obtained included CXR which was independently interpreted by me revealing no acute cardiopulmonary process, which is pending final radiology interpretation. Differential diagnosis considerations include infectious process such as pneumonia/UTI, dehydration, acute viral syndrome, electrolyte derangements. Comorbidities impacting this visit include history of bladder cancer. I have evaluated and discussed social determinants of health with the patient that could potentially impact subsequent diagnosis and treatment plans. On repeat assessment of the patient, reevaluation revealed that the patient is doing well and is in no acute distress. Patient symptoms have improved since he arrived to our emergency department. Repeat vital signs were all reviewed and noted to be stable. Differential diagnosis and treatment plan were discussed with the patient at bedside. Patient agrees with discussion and after shared medical decision making agrees with admission. All questions were answered to the patient's satisfaction. Case was discussed with on-call hospitalist Dr. Ley at 2034 and she accepted admission. Patient and daughter present at bedside were updated regarding patient's current status and all the questions were answered to their satisfaction. Lab Data 01/12/24 19:30 01/12/24 19:30 Labs: Lab Results 10/22/24 10/22/24 10/22/24 Range/Units 19:30 19:31 20:06 WBC 10.3 H (4.5-10.0) K/mm3 RBC 4.32 L (4.6-6.20) M/mm3 Hgb 13.7 L (14.0-18.0) g/dL Hct 41.6 L (42.0-52.0) % MCV 96.3 (80-100) fl MCH 31.7 (26-34) pg MCHC 32.9 (32-36) g/dl RDW 13.4 (11.5-14.5) % Plt Count 237 (150-375) k/mm3 MPV 9.7 (7.4-10.4) fl Immature Gran % (Auto) 0.2 (0-0.5) % Neut % (Auto) 86.5 H (45.5-73.1) % Lymph % (Auto) 6.2 L (18.3-44.2) % [place] % (Auto) 6.6 (2.6-8.5) % Eos % (Auto) 0.4 (0-4.4) % Baso % (Auto) 0.1 L (0.2-1.2) % Lymph # (Auto) 0.64 L (0.9-3.2) K/mm3 [place] # (Auto) 0.7 H (0.1-0.6) K/mm3 Eos # (Auto) 0.0 (0-0.3) K/mm3 Baso # (Auto) 0.0 (0.0-0.1) K/mm3 Abs Immat Gran (auto) 0.02 (0.00-0.031) K/mm3 Absolute Neuts (auto) 8.9 H (1.3-6.7) K/mm3 Absolute Nucleated RBC 0.000 (0.0-0.012) K/mm3 Nucleated RBC % 0.0 (0.0-0.2) % Sodium 135 L (137-145) mmol/L Potassium 4.0 (3.4-5.0) mmol/L Chloride 104 (98-107) mmol/L Carbon Dioxide 23 (22-30) mmol/L Anion Gap 8 (4-12) mmol/L BUN 22 H (9-20) mg/dL Creatinine 1.00 (0.7-1.3) mg/dL Estim Creat Clear Calc 54 ml/min Estimated GFR > 60 (59 - ) Glucose 122 H (65-110) mg/dL Lactic Acid 0.9 (0.7-2.0) mmol/L Calcium 9.3 (8.4-10.2) mg/dL Magnesium 1.9 (1.6-2.3) mg/dL Total Bilirubin 0.7 (0.2-1.3) mg/dL AST 21 (17-59) U/L ALT 21 (6-50) U/L Alkaline Phosphatase 92 (38-126) U/L Total Protein 8.0 (6.3-8.2) g/dL Albumin 4.1 (3.5-5.1) g/dL Urine Color Yellow (Yellow) Urine Appearance Cloudy H (Clear) Urine pH 5.0 (5.0-9.0) Ur Specific [place] 1.019 (1.001-1.035) Urine Protein 2+ H (Negative) mg/dL Urine Glucose (UA) Negative (Negative) mg/dL Urine Ketones Negative (Negative) mg/dL Ur Blood (Man) 3+ H (Negative) Urine Nitrate Negative (Negative) Urine Bilirubin Negative (Negative) Urine Urobilinogen 0.2 (<2.0) mg/dL Leukocyte Esterase Rfl 3+ H (Negative) SUSANNAH/UL Urine RBC 3-5 H (0-2) /hpf Urine WBC >100 H (0-3) /hpf Ur Squamous Epith Cells None seen (Few) /hpf Urine Bacteria None seen /hpf Urine Casts 0-2 Influenza A (RT-PCR) Negative (Negative) Influenza B (RT-PCR) Negative (Negative) SARS-CoV-2 RNA (RT-PCR) Negative (Negative) Discharge Plan Discharge Clinical Impression: Fever, Urinary tract infection, Delirium, Sepsis Patient Disposition: Still a Patient Condition: Improved Prescriptions: No Action aspirin 81 mg tablet,delayed release (DR/EC) 81 mg PO .every other day Hold Instructions: Resume on 12/19/23. albuterol sulfate [ProAir HFA] 90 mcg/actuation HFA aerosol inhaler 2 inh INHALATION Q4H PRN (Reason: shortness of breath or wheezing) Qty: 8.5 6RF Restasis MultiDose 0.05 % drops 1 drp EACH EYE Q12H carboxymethylcellulose sodium [Refresh Tears] 0.5 % drops 1 drp EACH EYE QID PRN (Reason: Dry Eyes) cyclosporine [Restasis] 0.05 % Dropperette 1 drp EACH EYE Q12H Gemtesa 75 mg tablet 75 mg PO DAILY multivitamin Tablet 1 tablet PO DAILY coQ10 (ubiquinol) 200 mg Capsule 400 mg PO DAILY Hold Instructions: Resume on 08/29/19. krill oil 500 mg Capsule 500 mg PO DAILY Hold Instructions: Resume on 08/29/19. Glucosamine Chondroitin 550-30-1 mg Capsule 2 cap PO DAILY ipratropium bromide 21 mcg (0.03 %) spray,non-aerosol 2 spray intranasal TID PRN (Reason: Runny Nose) Rx Instructions: administer into each nostril. Aim back/up/out. Stop with any worsening of dry eyes. losartan 25 mg tablet 25 mg PO DAILY Qty: 90 3RF Patient Comments: QAM fluticasone propion-salmeterol [Wixela Inhub] 250-50 mcg/dose blister with device See Rx Instructions .ROUTE .COMPLEX Qty: 60 3RF Dose Instruction: INHALE 1 PUFF BY MOUTH TWICE DAILY Rx Instructions: INHALE 1 PUFF BY MOUTH TWICE DAILY atorvastatin 20 mg tablet 20 mg PO DAILY Qty: 90 3RF Follow-up/Referrals: Raisa Foley MD [Primary Care Provider] - Time of Disposition: 20:29
[2024-01-12 19:19] VITALS: RESP 30; O2SAT 98
[2024-01-12] MEDS: SODIUM CHLORIDE 0.9% IV 1,000 ML 999 ML IV CONT (19:28)
[2024-01-12 19:39] LABS: Basophils Percent Auto 0.1 % (0.2-1.2); Eosinophils Percent Auto 0.4 % (0-4.4); Hematocrit 41.6 % (42.0-52.0); Hemoglobin 13.7 g/dL (14.0-18.0); Immature Granulocyte Absolute 0.02 K/mm3 (0.00-0.031); Immature Granulocyte Percent A 0.2 % (0-0.5); Lymphocytes Absolute Auto 0.64 K/mm3 (0.9-3.2); Lymphocytes Percent Auto 6.2 % (18.3-44.2); Mean Corpuscular HGB Conc 32.9 g/dl (32-36); Mean Corpuscular Hemoglobin 31.7 pg (26-34); Mean Corpuscular Volume 96.3 fl (80-100); Mean Platelet Volume 9.7 fl (7.4-10.4); Monocytes Absolute Auto 0.7 K/mm3 (0.1-0.6); Monocytes Percent Auto 6.6 % (2.6-8.5); Neutrophils Absolute Auto 8.9 K/mm3 (1.3-6.7); Neutrophils Percent Auto 86.5 % (45.5-73.1); Platelet Count Result 237 k/mm3 (150-375); Red Blood Count 4.32 M/mm3 (4.6-6.20); Red Cell Distribution Width 13.4 % (11.5-14.5); White Blood Count 10.3 K/mm3 (4.5-10.0)
[2024-01-12 19:50] LABS: Alanine Aminotransferase 21 U/L (6-50); Albumin Level 4.1 g/dL (3.5-5.1); Alkaline Phosphatase 92 U/L (38-126); Anion Gap 8 mmol/L (4-12); Aspartate Amino Transferase 21 U/L (17-59); Bilirubin,Total 0.7 mg/dL (0.2-1.3); Blood Urea Nitrogen 22 mg/dL (9-20); Calcium 9.3 mg/dL (8.4-10.2); Carbon Dioxide 23 mmol/L (22-30); Chloride 104 mmol/L (98-107); Estimated CRCL calculation 54 ml/min; Estimated Glomerular Filt Rate > 60; Glucose 122 mg/dL (65-110); Lactic Acid Reflex 0.9 mmol/L (0.7-2.0); Magnesium 1.9 mg/dL (1.6-2.3); Sodium 135 mmol/L (137-145)
[2024-01-12 20:14] LABS: Add Urine Microscopic? YES; Appearance Urine Cloudy (Clear); Bacteria Urine None Seen /hpf; Bilirubin Urine Negative (Negative); Blood Urine 3+ (Negative); Color Urine Yellow (Yellow); Glucose Urine UA Negative (Negative); Ketones Urine Negative (Negative); Leukocyte Esterase Ur 3+ LEU/UL (Negative); Nitrate Urine Negative (Negative); Non Pathogenic Casts 0-2; Protein Urine 2+ mg/dL (Negative); Specific Grav Ur 1.019 (1.001-1.035); Squamous Epithelial Cell Urine None Seen /hpf (Few); Urobilinogen Urine 0.2 mg/dL (<2.0); WBC Urine >100 /hpf (0-3)
[2024-01-12 20:15] LABS: Influenza A QL RT-PCR Negative (Negative); Influenza B QL RT-PCR Negative (Negative); SARS-CoV-2 RNA PCR Negative (Negative)
[2024-01-12 20:27] VITALS: BP 104/65; PULSE 65; RESP 21; O2SAT 94
--- NOTE | 2024-01-12 21:02 | PM.IMHP ---
H&P: HPI History of Present Illness Date/Time: 01/12/24 21:02 Chief Complaint: lethargy Narrative: This is an 83-year-old male with past medical history significant for bladder cancer, COPD, mitral valve prolapse, tobacco dependence. Patient received chemotherapy treatment today when his arrived home he was noted to be lethargic and had a fever was brought to the emergency room for evaluation. Patient denies any pain at this time, no nausea, no vomiting, no cough, no sputum production, no pain or burning with urination. Preliminary workup was significant for urinalysis with more than 100 WBCs per high-power field, chest x-ray showed atelectasis without focal infiltrate, Tested negative for influenza type A influenza type B and COVID. patient has been admitted for further evaluation management and treatment. CHEST RADIOGRAPH CLINICAL HISTORY: infection . COMPARISON: 03/03/2015 TECHNIQUE: Single portable view of the chest. FINDINGS The cardiomediastinal silhouette is unremarkable. Platelike atelectasis within the left mid to lower lung field, an interval change. Calcified granuloma within the left upper lobe, unchanged. The remainder of the lungs are clear. Visualized osseous structures and soft tissues are unremarkable. IMPRESSION: Platelike atelectasis within the left mid to lower lung field, without focal infiltrate or effusion. Review of Systems Review of Systems: lethargy, fever PMFSH Past Medical History Medical History Anxiety Bladder cancer Colon cancer Denies colonoscopy (12/2021) COPD mixed type Hyperlipidemia Lung nodules MVP (mitral valve prolapse) Nasal sinus tumor Prostate cancer Smoker Surgical History Surgical History Hx of cataract extraction Family History Family History Father Acute myocardial infarction Malignant neoplasm of prostate Family history of malignant neoplasm of bone Mother Family history of arthritis Social History Social History Smoking packs per day: 1 Smoking cigarettes per day: 20.0 Years smoked: 55 Smoking pack-years: 55.00 Smoking status: Current every day smoker Tobacco type: cigarettes Second hand tobacco smoke exposure: Yes Alcohol intake: never Substance use: never Substance use type: does not use Do You Feel Safe in your Home?: Yes Lack of Transportation: No Lack of Food: Never True Current Housing: I Have Housing Concerned About Future Housing: No Difficulty Paying Gas/Electric Bills: No Difficulty Paying for Meds: No Currently Unemployed: No Education: Master's Degree or Higher Difficulty w/ Childcare or Family Care: No Living arrangements: with family Additional living arrangements comments: AND DAUGHTER Occupation/Education: retired Gender identity (if verbalized by the patient): Male Spiritual care concerns: No Agree to blood products: Yes Meds Home Medications and Allergies Home Medications Medication Instructions Recorded Confirmed Type coQ10 (ubiquinol) 200 mg capsule 400 mg PO DAILY 08/17/19 01/12/24 History krill oil 500 mg capsule 350 mg PO DAILY 08/17/19 01/12/24 History multivitamin 1 tablet PO DAILY 08/17/19 01/12/24 History albuterol sulfate 90 mcg/actuation 2 inh inhalation Q4H PRN shortness 01/01/21 01/12/24 Rx aerosol inhaler (ProAir HFA) of breath or wheezing #8.5 grams aspirin 81 mg tablet,delayed 81 mg PO .every other day 07/10/21 01/12/24 History release carboxymethylcellulose sodium 0.5 1 drp EACH EYE QID PRN Dry Eyes 11/01/21 01/12/24 History % eye drops (Refresh Tears) glucosamine sulf dipot 2 cap PO DAILY 06/11/23 01/12/24 History chlr,msm,chond 550 mg-C 30 mg-alma 1 mg capsule (Glucosamine Chondroitin) losartan 25 mg tablet 25 mg PO DAILY #90 tabs 08/04/23 01/12/24 Rx atorvastatin 20 mg tablet 20 mg PO DAILY #90 tabs 11/02/23 01/12/24 Rx cyclosporine 0.05 % eye drops in a 1 drp EACH EYE Q12H 12/10/23 01/12/24 History dropperette (Restasis) vibegron 75 mg tablet (Gemtesa) 75 mg PO DAILY 12/10/23 01/12/24 History fluticasone 250 mcg-salmeterol 50 1 inh inhalation BID 01/12/24 01/12/24 History mcg/dose blistr powdr for inhalation (Wixela Inhub) Allergies Allergy/AdvReac Type Severity Reaction Status Date / Time No Known Allergies Allergy NONE Verified 01/12/24 18:00 Vital Signs Vital Signs - 24 hr 01/12/24 18:36 01/12/24 18:57 01/12/24 19:19 Temperature 100.0 F H 101.6 F H Pulse Rate 118 H Respiratory Rate 16 30 H Blood Pressure 128/58 L Pulse Oximetry 92 98 01/12/24 20:27 Temperature Pulse Rate 65 Respiratory Rate 21 H Blood Pressure 104/65 Pulse Oximetry 94 Exam Narrative: lying in bed Const: General: comfortable, no acute distress, well developed, alert, awake and average body habitus Nutritional Appearance: average body habitus Orientation/consciousness: patient oriented x3 HENMT: Head: normal to inspection, normocephalic and atraumatic Ears: hearing grossly normal bilaterally Face/Nose/Sinus: normal facial exam Face and sinus: normal facial exam Eyes: General: appearance normal, both eyes and all related structures Pupils: Equal, round and reactive pupils present EOM: EOMs intact bilaterally Neck: Neck: full ROM, no lymphadenopathy and no JVD Thyroid: thyroid normal Lymphatic: no lymphadenopathy noted Resp: Effort & Inspection: normal respiratory effort and able to speak in complete sentences Auscultation: clear to auscultation bilaterally Cardio: Jugular venous distension: no JVD Rate: regular rate Rhythm: regular rhythm Heart sounds: S1 normal heart sound present and S2 normal heart sound present GI: GI Palp: Yes Soft to palpation and Yes No hepatosplenomegaly present : General: Yes deferred Skin: Rashes: no rashes Wounds: no wounds Neuro: General: patient oriented x3 and CN's II-XI intact bilaterally Cranial nerves: Yes CN's II-XII intact bilaterally and Yes Equal, round and reactive pupils present Cognition (Neuro): normal cognition Speech: normal speech Gait exam (Neuro): Normal gait present Motor exam (neuro): 5/5 motor strength present throughout Extrem: General: normal to inspection, full ROM, no joint enlargement and no pedal edema H&P: Results Labs Labs: Short CBC 01/12/24 Range/Units 19:30 WBC 10.3 H (4.5-10.0) K/mm3 Hgb 13.7 L (14.0-18.0) g/dL Hct 41.6 L (42.0-52.0) % Plt Count 237 (150-375) k/mm3 [facility] 01/12/24 19:30 Sodium 135 L Potassium 4.0 Chloride 104 Carbon Dioxide 23 BUN 22 H Creatinine 1.00 Glucose 122 H Calcium 9.3 Liver Function 01/12/24 Range/Units 19:30 Total Bilirubin 0.7 (0.2-1.3) mg/dL AST 21 (17-59) U/L ALT 21 (6-50) U/L Alkaline Phosphatase 92 (38-126) U/L Albumin 4.1 (3.5-5.1) g/dL Urine 01/12/24 Range/Units 20:06 Urine Color Yellow (Yellow) Urine Appearance Cloudy H (Clear) Urine pH 5.0 (5.0-9.0) Ur Specific [place] 1.019 (1.001-1.035) Urine Protein 2+ H (Negative) mg/dL Urine Glucose (UA) Negative (Negative) mg/dL Assessment and Plan Assessment and plan (1) Urinary tract infection: Code(s): N39.0 - Urinary tract infection, site not specified Status: Acute Assessment and Plan: admit to regular medical floor started Rocephin await cultures (2) Fever: Qualifiers: Fever type: unspecified Qualified Code(s): R50.9 - Fever, unspecified Code(s): R50.9 - Fever, unspecified Status: Inactive Assessment and Plan: supportive care (3) Weakness: Code(s): R53.1 - Weakness Status: Inactive Assessment and Plan: likely secondary to acute illness in the setting of bladder cancer and chemotherapy (4) Primary hypertension: Code(s): I10 - Essential (primary) hypertension Status: Acute Assessment and Plan: continue to monitor resume meds as needed (5) COPD mixed type: Code(s): J44.9 - Chronic obstructive pulmonary disease, unspecified Status: Acute Assessment and Plan: not actively wheezing (6) Bladder cancer: Code(s): C67.9 - Malignant neoplasm of bladder, unspecified Status: Acute Assessment and Plan: undergoing chemotherapy (7) Tobacco abuse: Code(s): Z72.0 - Tobacco use Status: Acute Assessment and Plan: nicotine patch as needed Hospitalist MIPS Advance Care Plan I have confirmed that the patient's Advanced Care Plan is present, code status is documented, or surrogate decision maker is listed in patient medical record.: Yes Medication Reconciliation I have utilized all available resources to obtain, update and review the patients current medications (includes all prescriptions, OTC, herbals, cannabis, and nutritional supplements).: Yes
--- NOTE | 2024-01-12 21:30 | ADMGEN ---
This patient, Francisco Kaiser, was admitted to Medical Room 251-. Patient/family oriented to hospital policies and general routines including ID bracelet, bed and alarms, visiting hours, pain management, procedures, bathroom and other care routines, personal items, smoking policy, room service/diet, and visiting hours. Information on how to activate the Rapid Response Team has been discussed. Patient/Family are encouraged to report perceived risks to care and to ask questions if they do not understand what they are told or what they should do.
[2024-01-12 21:34] VITALS: PULSE 65
[2024-01-12 21:36] VITALS: BMI 25.3
[2024-01-12 21:37] VITALS: BP 107/64; PULSE 64; RESP 18; TEMP 36.8; O2SAT 93
[2024-01-13] VITALS (13 sets, daily range): BP systolic 108–152; BP diastolic 63–87; PULSE 54–89; RESP 18–20; TEMP 35.9–37.3; O2SAT 91–94
--- NOTE | 2024-01-13 03:45 | ECG_ITS ---
Test Date: 2024-01-13 03:56:10 Measurements Intervals [place] Rate: 78 P: 0 OR: 0 QRS: 113 QRSD: 105 T: 68 QT: 367 QTc: 420 Interpretive Statements PROBABLY SINUS RHYTHM WITH PREMATURE ATRIAL COMPLEXES POSSIBLE RIGHT VENTRICULAR HYPERTROPHY [SOME/ALL OF: PROMINENT R IN V1, LATE TRANSITION, RAD, GERRY, SSS] ABNORMAL ECG No previous ECG available for comparison Electronically Signed On 01-13-2024 10:21:56 CDT by Aureliano Pardo M.D.
[2024-01-13] MEDS: IPRATROPIUM 0.5 MG/ALBUTEROL SULFATE 2.5 MG AMPUL.NEB 3 ML INHALATION (04:13)
[2024-01-13] MEDS: FLUTICASONE/SALMETEROL 115-21 MCG INHALER 1 PUFF 2 PUFF INHALATION ×2 (07:28→20:10)
--- NOTE | 2024-01-13 09:07 | P.PNIM_ITS ---
Progress Note: A&P Assessment and Plan (1) Urinary tract infection: Code(s): N39.0 - Urinary tract infection, site not specified Status: Acute Assessment and Plan: admit to regular medical floor started Rocephin await cultures (2) Fever: Qualifiers: Fever type: unspecified Qualified Code(s): R50.9 - Fever, unspecified Code(s): R50.9 - Fever, unspecified Status: Inactive Assessment and Plan: supportive care (3) Weakness: Code(s): R53.1 - Weakness Status: Inactive Assessment and Plan: likely secondary to acute illness in the setting of bladder cancer and chemotherapy - will order PT/OT (4) Primary hypertension: Code(s): I10 - Essential (primary) hypertension Status: Acute Assessment and Plan: continue to monitor resume meds as needed (5) COPD mixed type: Code(s): J44.9 - Chronic obstructive pulmonary disease, unspecified Status: Acute Assessment and Plan: -stable-monitor (6) Bladder cancer: Code(s): C67.9 - Malignant neoplasm of bladder, unspecified Status: Acute Assessment and Plan: undergoing chemotherapy (7) Tobacco abuse: Code(s): Z72.0 - Tobacco use Status: Acute Assessment and Plan: nicotine patch as needed Time Spent With Patient Time with patient: Greater than 35 minutes Subjective Date/time seen: 01/13/24 09:07 Interval history: Lethargy Narrative retrieved from H/P: 83-year-old male with past medical history significant for bladder cancer, COPD, mitral valve prolapse, tobacco dependence. Patient received chemotherapy treatment today when his arrived home he was noted to be lethargic and had a fever was brought to the emergency room for evaluation. Patient denies any pain at this time, no nausea, no vomiting, no cough, no sputum production, no pain or burning with urination. Preliminary workup was significant for urinalysis with more than 100 WBCs per high-power field, chest x-ray showed atelectasis without focal infiltrate, Tested negative for influenza type A influenza type B and COVID. patient has been admitted for further evaluation management and treatment. 01/12- pt is seen and examined today. he is pleasant, denies any pain. reports chills at times, hsd been getting progressively weaker at home. Review of Systems Review of Systems: lethargy, fever Exam Narrative: lying in bed Const: General: comfortable, no acute distress, well developed, alert, awake and average body habitus Nutritional Appearance: average body habitus Orientation/consciousness: patient oriented x3 HENMT: Head: normal to inspection, normocephalic and atraumatic Ears: hearing grossly normal bilaterally Face/Nose/Sinus: normal facial exam Face and sinus: normal facial exam Eyes: General: appearance normal, both eyes and all related structures Pupils: Equal, round and reactive pupils present EOM: EOMs intact bilaterally Neck: Neck: full ROM, no lymphadenopathy and no JVD Thyroid: thyroid normal Lymphatic: no lymphadenopathy noted Resp: Effort & Inspection: normal respiratory effort and able to speak in complete sentences Auscultation: clear to auscultation bilaterally Cardio: Jugular venous distension: no JVD Rate: regular rate Rhythm: regular rhythm Heart sounds: S1 normal heart sound present and S2 normal heart sound present : General: Yes deferred Skin: Rashes: no rashes Wounds: no wounds Neuro: General: patient oriented x3 and CN's II-XI intact bilaterally Cranial nerves: Yes CN's II-XII intact bilaterally and Yes Equal, round and reactive pupils present Cognition (Neuro): normal cognition Speech: normal speech Gait exam (Neuro): Normal gait present Motor exam (neuro): 5/5 motor strength present throughout Extrem: General: normal to inspection, full ROM, no joint enlargement and no pedal edema Objective Data Vital Signs Vital Signs: Vital Signs - 24 hr 01/12/24 18:36 01/12/24 18:57 01/12/24 19:19 Temperature 100.0 F H 101.6 F H Pulse Rate 118 H Respiratory Rate 16 30 H Blood Pressure 128/58 L Pulse Oximetry 92 98 Oxygen Delivery 01/12/24 20:27 01/12/24 21:37 01/12/24 21:34 Temperature 98.3 F Pulse Rate 65 64 65 Respiratory Rate 21 H 18 Blood Pressure 104/65 107/64 Pulse Oximetry 94 93 Oxygen Delivery 01/12/24 22:35 01/13/24 00:00 01/13/24 03:31 Temperature 99.2 F Pulse Rate 66 65 Respiratory Rate 20 Blood Pressure 152/69 H Pulse Oximetry 91 Oxygen Delivery Room Air 01/13/24 03:45 01/13/24 04:00 01/13/24 04:16 Temperature Pulse Rate 89 83 Respiratory Rate 20 Blood Pressure Pulse Oximetry 91 Oxygen Delivery Room Air 01/13/24 07:30 Temperature Pulse Rate Respiratory Rate Blood Pressure Pulse Oximetry 92 Oxygen Delivery Room Air Intake/Output Intake/Output: Intake & Output 01/10/24 01/11/24 01/12/24 01/13/24 23:59 23:59 23:59 23:59 Intake Total 1050 340 Output Total 300 Balance 750 340 Meds/Results Medications: Active Medications Generic Name Dose Route Start Last Admin Trade Name Freq PRN Reason Stop Dose Admin Acetaminophen 1,000 mg 01/13/24 00:07 Acetaminophen 500 Mg Tablet PO Q6H PRN Mild Pain (1-3) or Fever Al Hydrox/Mg Hydrox/Simethicone 30 ml 01/13/24 00:07 Mag Hydrox/Al Hydrox/Simeth 30 Ml Udc PO Q6H PRN Indigestion Albuterol 2 puff 01/13/24 00:06 Albuterol Sulfate (*Sp) Aerosol 1 Puff INHALATION Q4HRT PRN shortness of breath or wheezing Artificial Tears 1 drop 01/13/24 00:06 Artificial Tears Ophth Soln 15 Ml Bottle EACH EYE QID PRN Dry Eyes Aspirin 81 mg 01/13/24 00:10 Aspirin 81 Mg Enteric Tablet PO .every other day CORI Enoxaparin Sodium 40 mg 01/13/24 09:00 Enoxaparin 40 Mg/0.4 Ml Syringe SUB-Q DAILY CORI Ceftriaxone Sodium 1 gm in 50 mls @ 100 mls/hr 01/13/24 21:00 Rocephin 1 Gm/Ns 50 Ml IVPB Q24H CORI Losartan Potassium 25 mg 01/13/24 09:00 Losartan Potassium 25 Mg Tablet PO DAILY CORI Miscellaneous Information 0 each 01/13/24 00:01 Gemtesa Nonform Can Pt Bring From Home? XX 02/12/24 00:00 CLARIFY CORI Non-Formulary Medication 75 mg 01/13/24 09:00 Vibegron [Gemtesa] PO 02/12/24 08:59 DAILY CORI Polyethylene Glycol 17 gm 01/13/24 00:07 Polyethylene Glycol 3350 17 Gm Powd.Pack PO QAM PRN Constipation Fluticasone/Salmeterol 2 puff 01/13/24 08:00 01/13/24 07:28 Fluticasone/Salmeterol 115-21 Mcg Inhaler 1 Puff INHALATION 2 puff Q12HRT CORI Administration Radiology Results: ITS Impressions Chest X-Ray 01/12/24 19:32 IMPRESSION: Platelike atelectasis within the left mid to lower lung field, without focal infiltrate or effusion. Labs Labs: Laboratory Results - last 24 hr 01/12/24 01/12/24 01/12/24 19:30 19:31 20:06 WBC 10.3 H RBC 4.32 L Hgb 13.7 L Hct 41.6 L MCV 96.3 MCH 31.7 MCHC 32.9 RDW 13.4 Plt Count 237 MPV 9.7 Immature Gran % (Auto) 0.2 Neut % (Auto) 86.5 H Lymph % (Auto) 6.2 L [place] % (Auto) 6.6 Eos % (Auto) 0.4 Baso % (Auto) 0.1 L Lymph # (Auto) 0.64 L [place] # (Auto) 0.7 H Eos # (Auto) 0.0 Baso # (Auto) 0.0 Abs Immat Gran (auto) 0.02 Absolute Neuts (auto) 8.9 H Absolute Nucleated RBC 0.000 Nucleated RBC % 0.0 Sodium 135 L Potassium 4.0 Chloride 104 Carbon Dioxide 23 Anion Gap 8 BUN 22 H Creatinine 1.00 Estim Creat Clear Calc 54 Estimated GFR > 60 Glucose 122 H Lactic Acid 0.9 Calcium 9.3 Magnesium 1.9 Total Bilirubin 0.7 AST 21 ALT 21 Alkaline Phosphatase 92 Total Protein 8.0 Albumin 4.1 Urine Color Yellow Urine Appearance Cloudy H Urine pH 5.0 Ur Specific [place] 1.019 Urine Protein 2+ H Urine Glucose (UA) Negative Urine Ketones Negative Ur Blood (Man) 3+ H Urine Nitrate Negative Urine Bilirubin Negative Urine Urobilinogen 0.2 Leukocyte Esterase Rfl 3+ H Urine RBC 3-5 H Urine WBC >100 H Ur Squamous Epith Cells None seen Urine Bacteria None seen Urine Casts 0-2 Influenza A (RT-PCR) Negative Influenza B (RT-PCR) Negative SARS-CoV-2 RNA (RT-PCR) Negative Quality VTE Prophylaxis VTE prophylaxis: mechanical ordered
[2024-01-13] MEDS: LOSARTAN POTASSIUM 25 MG TABLET PO (10:00)
[2024-01-13] MEDS: ENOXAPARIN 40 MG/0.4 ML SYRINGE SUB-Q (10:00)
[2024-01-14] VITALS (7 sets, daily range): BP systolic 99–116; BP diastolic 55–60; PULSE 60–88; RESP 18–20; TEMP 36.5–36.7; O2SAT 95–97
[2024-01-14] MEDS: FLUTICASONE/SALMETEROL 115-21 MCG INHALER 1 PUFF 2 PUFF INHALATION (07:09)
--- NOTE | 2024-01-14 07:38 | PM.IMPN ---
Progress Note: A&P Assessment and Plan (1) Urinary tract infection: Code(s): N39.0 - Urinary tract infection, site not specified Status: Acute Assessment and Plan: admit to regular medical floor started Rocephin await cultures Final UC- negative BC negative so far- monitor for final results (2) Fever: Qualifiers: Fever type: unspecified Qualified Code(s): R50.9 - Fever, unspecified Code(s): R50.9 - Fever, unspecified Status: Inactive Assessment and Plan: supportive care (3) Weakness: Code(s): R53.1 - Weakness Status: Inactive Assessment and Plan: likely secondary to acute illness in the setting of bladder cancer and chemotherapy - will order PT/OT (4) Primary hypertension: Code(s): I10 - Essential (primary) hypertension Status: Acute Assessment and Plan: continue to monitor resume meds as needed (5) COPD mixed type: Code(s): J44.9 - Chronic obstructive pulmonary disease, unspecified Status: Acute Assessment and Plan: -stable-monitor (6) Bladder cancer: Code(s): C67.9 - Malignant neoplasm of bladder, unspecified Status: Acute Assessment and Plan: undergoing chemotherapy (7) Tobacco abuse: Code(s): Z72.0 - Tobacco use Status: Acute Assessment and Plan: nicotine patch as needed Time Spent With Patient Time with patient: Greater than 35 minutes Subjective Date/time seen: 01/14/24 07:38 Interval history: Lethargy Narrative retrieved from H/P: 83-year-old male with past medical history significant for bladder cancer, COPD, mitral valve prolapse, tobacco dependence. Patient received chemotherapy treatment today when his arrived home he was noted to be lethargic and had a fever was brought to the emergency room for evaluation. Patient denies any pain at this time, no nausea, no vomiting, no cough, no sputum production, no pain or burning with urination. Preliminary workup was significant for urinalysis with more than 100 WBCs per high-power field, chest x-ray showed atelectasis without focal infiltrate, Tested negative for influenza type A influenza type B and COVID. patient has been admitted for further evaluation management and treatment. 01/12- pt is seen and examined today. he is pleasant, denies any pain. reports chills at times, had been getting progressively weaker at home. 01/13- no acute events overnight. labs ordered. remains afebrile, room air. Review of Systems Review of Systems: lethargy, fever Exam Narrative: lying in bed Const: General: comfortable, no acute distress, well developed, alert, awake and average body habitus Nutritional Appearance: average body habitus Orientation/consciousness: patient oriented x3 HENMT: Head: normal to inspection, normocephalic and atraumatic Ears: hearing grossly normal bilaterally Face/Nose/Sinus: normal facial exam Face and sinus: normal facial exam Eyes: General: appearance normal, both eyes and all related structures Pupils: Equal, round and reactive pupils present EOM: EOMs intact bilaterally Neck: Neck: full ROM, no lymphadenopathy and no JVD Thyroid: thyroid normal Lymphatic: no lymphadenopathy noted Resp: Effort & Inspection: normal respiratory effort and able to speak in complete sentences Auscultation: clear to auscultation bilaterally Cardio: Jugular venous distension: no JVD Rate: regular rate Rhythm: regular rhythm Heart sounds: S1 normal heart sound present and S2 normal heart sound present : General: Yes deferred Skin: Rashes: no rashes Wounds: no wounds Neuro: General: patient oriented x3 and CN's II-XI intact bilaterally Cranial nerves: Yes CN's II-XII intact bilaterally and Yes Equal, round and reactive pupils present Cognition (Neuro): normal cognition Speech: normal speech Gait exam (Neuro): Normal gait present Motor exam (neuro): 5/5 motor strength present throughout Extrem: General: normal to inspection, full ROM, no joint enlargement and no pedal edema Objective Data Vital Signs Vital Signs: Vital Signs - 24 hr 01/13/24 10:10 01/13/24 08:00 01/13/24 14:00 Temperature 96.6 F L Pulse Rate 75 56 L Respiratory Rate 20 Blood Pressure 116/63 Pulse Oximetry 94 Oxygen Delivery Room Air 01/13/24 12:00 01/13/24 16:00 01/13/24 20:14 Temperature Pulse Rate 76 54 L Respiratory Rate Blood Pressure Pulse Oximetry 93 Oxygen Delivery Room Air 01/13/24 20:14 01/13/24 20:00 01/13/24 20:00 Temperature Pulse Rate 72 74 Respiratory Rate 18 Blood Pressure Pulse Oximetry Oxygen Delivery Room Air 01/13/24 22:00 01/14/24 00:00 01/14/24 04:00 Temperature 98.4 F Pulse Rate 80 78 60 Respiratory Rate 18 Blood Pressure 108/87 Pulse Oximetry 93 Oxygen Delivery 01/14/24 06:00 01/14/24 07:11 01/14/24 07:11 Temperature 98.1 F Pulse Rate 88 74 Respiratory Rate 18 20 Blood Pressure 116/55 L Pulse Oximetry 97 95 Oxygen Delivery Room Air Intake/Output Intake/Output: Intake & Output 01/11/24 01/12/24 01/13/24 01/14/24 23:59 23:59 23:59 23:59 Intake Total 1050 1110 Output Total 300 Balance 750 1110 Meds/Results Medications: Active Medications Generic Name Dose Route Start Last Admin Trade Name Freq PRN Reason Stop Dose Admin Acetaminophen 1,000 mg 01/13/24 00:07 Acetaminophen 500 Mg Tablet PO Q6H PRN Mild Pain (1-3) or Fever Al Hydrox/Mg Hydrox/Simethicone 30 ml 01/13/24 00:07 Mag Hydrox/Al Hydrox/Simeth 30 Ml Udc PO Q6H PRN Indigestion Albuterol 2 puff 01/13/24 00:06 Albuterol Sulfate (*Sp) Aerosol 1 Puff INHALATION Q4HRT PRN shortness of breath or wheezing Artificial Tears 1 drop 01/13/24 00:06 Artificial Tears Ophth Soln 15 Ml Bottle EACH EYE QID PRN Dry Eyes Aspirin 81 mg 01/13/24 00:10 Aspirin 81 Mg Enteric Tablet PO .every other day CORI Enoxaparin Sodium 40 mg 01/13/24 09:00 01/13/24 10:00 Enoxaparin 40 Mg/0.4 Ml Syringe SUB-Q 40 mg DAILY CORI Administration Ceftriaxone Sodium 1 gm in 50 mls @ 100 mls/hr 01/13/24 21:00 01/13/24 20:33 Rocephin 1 Gm/Ns 50 Ml IVPB Infused Q24H CORI Infusion Losartan Potassium 25 mg 01/13/24 09:00 01/13/24 10:00 Losartan Potassium 25 Mg Tablet PO 25 mg DAILY CORI Administration Miscellaneous Information 0 each 01/13/24 00:01 01/14/24 07:21 Gemtesa Nonform Can Pt Bring From Home? XX 02/12/24 00:00 Not Given CLARIFY CORI Non-Formulary Medication 75 mg 01/13/24 09:00 Vibegron [Gemtesa] PO 02/12/24 08:59 DAILY CORI Polyethylene Glycol 17 gm 01/13/24 00:07 Polyethylene Glycol 3350 17 Gm Powd.Pack PO QAM PRN Constipation Fluticasone/Salmeterol 2 puff 01/13/24 08:00 01/14/24 07:09 Fluticasone/Salmeterol 115-21 Mcg Inhaler 1 Puff INHALATION 2 puff Q12HRT CORI Administration Radiology Results: ITS Impressions Chest X-Ray 01/12/24 19:32 IMPRESSION: Platelike atelectasis within the left mid to lower lung field, without focal infiltrate or effusion. Quality VTE Prophylaxis VTE prophylaxis: mechanical ordered
[2024-01-14] MEDS: ENOXAPARIN 40 MG/0.4 ML SYRINGE SUB-Q (08:18)
[2024-01-14] MEDS: LOSARTAN POTASSIUM 25 MG TABLET PO (08:19)
[2024-01-14 08:35] LABS: Anion Gap 5 mmol/L (4-12); Blood Urea Nitrogen 14 mg/dL (9-20); Calcium 9.7 mg/dL (8.4-10.2); Carbon Dioxide 29 mmol/L (22-30); Chloride 106 mmol/L (98-107); Estimated CRCL calculation 59 ml/min; Estimated Glomerular Filt Rate > 60; Glucose 114 mg/dL (65-110); Potassium 4.9 mmol/L (3.4-5.0); Sodium 140 mmol/L (137-145)
[2024-01-14 08:38] LABS: Hematocrit 42.6 % (42.0-52.0); Hemoglobin 13.3 g/dL (14.0-18.0); Mean Corpuscular HGB Conc 31.2 g/dl (32-36); Mean Corpuscular Hemoglobin 31.1 pg (26-34); Mean Corpuscular Volume 99.5 fl (80-100); Mean Platelet Volume 9.5 fl (7.4-10.4); Platelet Count Result 240 k/mm3 (150-375); Red Blood Count 4.28 M/mm3 (4.6-6.20); Red Cell Distribution Width 13.5 % (11.5-14.5); White Blood Count 7.8 K/mm3 (4.5-10.0)
--- NOTE | 2024-01-14 13:02 | P.DS_ITS ---
DS: Admitting Diagnosis Discharge Date 01/13 Admitting Diagnosis fever, weakness DS: Discharge Diagnosis Discharge Diagnosis (1) Urinary tract infection: Code(s): N39.0 - Urinary tract infection, site not specified Status: Acute Assessment and Plan: admit to regular medical floor started Rocephin await cultures Final UC- negative BC negative so far- monitor for final results (2) Fever: Qualifiers: Fever type: unspecified Qualified Code(s): R50.9 - Fever, unspecified Code(s): R50.9 - Fever, unspecified Status: Inactive Assessment and Plan: supportive care (3) Weakness: Code(s): R53.1 - Weakness Status: Inactive Assessment and Plan: likely secondary to acute illness in the setting of bladder cancer and chemotherapy - will order PT/OT (4) Primary hypertension: Code(s): I10 - Essential (primary) hypertension Status: Acute Assessment and Plan: continue to monitor resume meds as needed (5) COPD mixed type: Code(s): J44.9 - Chronic obstructive pulmonary disease, unspecified Status: Acute Assessment and Plan: -stable-monitor (6) Bladder cancer: Code(s): C67.9 - Malignant neoplasm of bladder, unspecified Status: Acute Assessment and Plan: undergoing chemotherapy (7) Tobacco abuse: Code(s): Z72.0 - Tobacco use Status: Acute Assessment and Plan: nicotine patch as needed DS: Summary Hospital Course Hospital Course: Lethargy Narrative retrieved from H/P: 83-year-old male with past medical history significant for bladder cancer, COPD, mitral valve prolapse, tobacco dependence. Patient received chemotherapy treatment today when his arrived home he was noted to be lethargic and had a fever was brought to the emergency room for evaluation. Patient denies any pain at this time, no nausea, no vomiting, no cough, no sputum production, no pain or burning with urination. Preliminary workup was significant for urinalysis with more than 100 WBCs per high-power field, chest x-ray showed atelectasis without focal infiltrate, Tested negative for influenza type A influenza type B and COVID. patient has been admitted for further evaluation management and treatment. # UTI - ua culture came back negative # malignant neoplasm of bladder - very likely fever and weakness due to recent chemotherapy session # weakness worked with PT/OT- did well Status at Discharge Functional status at discharge: independent ambulation Overall status at discharge: patient is progressing back to baseline Time Spent with Patient Time attestation: Total time spent providing and/or coordinating discharge services: Time spent: Greater than 30 minutes Exam Narrative: lying in bed Const: General: comfortable, no acute distress, well developed, alert, awake and average body habitus Nutritional Appearance: average body habitus Orientation/consciousness: patient oriented x3 HENMT: Head: normal to inspection, normocephalic and atraumatic Ears: hear ing grossly normal bilaterally Face/Nose/Sinus: normal facial exam Face and sinus: normal facial exam Eyes: General: appearance normal, both eyes and all related structures Pupils: Equal, round and reactive pupils present EOM: EOMs intact bilaterally Neck: Neck: full ROM, no lymphadenopathy and no JVD Thyroid: thyroid normal Lymphatic: no lymphadenopathy noted Resp: Effort & Inspection: normal respiratory effort and able to speak in complete sentences Auscultation: clear to auscultation bilaterally Cardio: Jugular venous distension: no JVD Rate: regular rate Rhythm: regular rhythm Heart sounds: S1 normal heart sound present and S2 normal heart sound present : General: Yes deferred Skin: Rashes: no rashes Wounds: no wounds Neuro: General: patient oriented x3 and CN's II-XI intact bilaterally Cranial nerves: Yes CN's II-XII intact bilaterally and Yes Equal, round and reactive pupils present Cognition (Neuro): normal cognition Speech: normal speech Gait exam (Neuro): Normal gait present Motor exam (neuro): 5/5 motor strength present throughout Extrem: General: normal to inspection, full ROM, no joint enlargement and no pedal edema DS: Data Data Completed and Pending Completed studies during hospitalization: chest xray Labs on day of discharge: Labs from last 24 hours 01/14/24 08:08 WBC 7.8 RBC 4.28 L Hgb 13.3 L Hct 42.6 MCV 99.5 MCH 31.1 MCHC 31.2 L RDW 13.5 Plt Count 240 MPV 9.5 Sodium 140 Potassium 4.9 Chloride 106 Carbon Dioxide 29 Anion Gap 5 BUN 14 D Creatinine 0.80 Estim Creat Clear Calc 59 Estimated GFR > 60 Glucose 114 H Calcium 9.7 Preliminary micro results at discharge 01/12/24 19:30 Blood Culture - Preliminary Blood 01/12/24 19:30 Blood Culture - Preliminary Blood Discharge Plan Discharge Discharging Clinician: Stephanie Damon Patient Disposition: Home, Self-Care Activity: july shower Diet: heart healthy Discharge Instructions: you were admitted for fever and weakness. Your urine results initially showed possible infections- but later there were no bacteria identified. You worked with PT/OT and did well, no fever. Those symptoms very likely were due to your recent chemotherapy as we discussed. Patient Instructions: Antibiotic Form, How to Stop Smoking (DC) Stand Alone Forms: General Discharge Information Follow-up/Referrals: Raisa Foley MD [Primary Care Provider] - 1 Week Discharge Medications: Continued aspirin 81 mg tablet,delayed release (DR/EC) 81 mg PO .every other day Hold Instructions: Resume on 12/19/23. albuterol sulfate [ProAir HFA] 90 mcg/actuation HFA aerosol inhaler 2 inh INHALATION Q4H PRN (Reason: shortness of breath or wheezing) Qty: 8.5 6RF carboxymethylcellulose sodium [Refresh Tears] 0.5 % drops 1 drp EACH EYE QID PRN (Reason: Dry Eyes) cyclosporine [Restasis] 0.05 % Dropperette 1 drp EACH EYE Q12H Gemtesa 75 mg tablet 75 mg PO DAILY fluticasone propion-salmeterol [Wixela Inhub] 250-50 mcg/dose blister with device 1 inh inhalation BID multivitamin Tablet 1 tablet PO DAILY coQ10 (ubiquinol) 200 mg Capsule 400 mg PO DAILY Hold Instructions: Resume on 08/29/19. krill oil 500 mg Capsule 350 mg PO DAILY Hold Instructions: Resume on 08/29/19. Glucosamine Chondroitin 550-30-1 mg Capsule 2 cap PO DAILY losartan 25 mg tablet 25 mg PO DAILY Qty: 90 3RF Patient Comments: QAM atorvastatin 20 mg tablet 20 mg PO DAILY Qty: 90 3RF Date of admission: 01/13/24 06:47 Primary Care Provider: Raisa Foley Admitting Provider: Ganesh Ley V. Attending physician on admission: Ganesh Ley V. Condition: Improved Quality VTE Prophylaxis VTE prophylaxis: mechanical ordered Hospitalist MIPS Heart Failure (Exclusion) Patient has history of Heart Transplant or Left Ventricular Assistive Device?: No IF YES, STOP HERE Heart Failure (Qualifier) Patient has current or prior documentation of LVEF less than or equal to 40%, or mod/servere depressed LVSF?: No IF NO, STOP HERE
== END 2024-01-14 15:50 | disposition home or self-care (01) ==
LOC: ANHED 20:47 → ANH2MED 01-13 01:55
PROVIDERS: Nurse Practitioner; Admitting Provider Internal Medicine; Emergency Provider Emergency Medicine; PCP Family Medicine; Visit Provider Internal Medicine
DX: R50.9 Fever, unspecified (principal); R53.1 Weakness; R53.83 Other fatigue; C67.9 Malignant neoplasm of bladder, unspecified; J44.9 Chronic obstructive pulmonary disease, unspecified; E78.5 Hyperlipidemia, unspecified; F17.210 Nicotine dependence, cigarettes, uncomplicated; I34.1 Nonrheumatic mitral (valve) prolapse; R91.8 Other nonspecific abnormal finding of lung field; I10 Essential (primary) hypertension; Z20.822 Contact with and (suspected) exposure to COVID-19; Z85.46 Personal history of malignant neoplasm of prostate; Z85.038 Personal history of other malignant neoplasm of large intestine
CPT/HCPCS: 36415; 71045; 80048; 80053; 81001; 83605; 83735; 85025; 85027; 87040; 87086; 87636; 93005; 94640; 96361; 96365; 96372; 97161; 99285; A9270; G0378; J0696; J1650; J7030

== ENCOUNTER 2024-01-15 07:50 | Outpatient (CLI) | payer MEDICARE, SELFPAY ==
--- NOTE | ~2024-01-15 | CT_ITS ---
EXAMINATION:CT diagnostic chest w con DATE: 01/15/2024 08:17 INDICATION: Solitary pulmonary nodule. TECHNIQUE: Computed tomography (CT) of the chest was performed with 75 mL Omnipaque 350 intravenous c ontrast. Automated exposure control and iterative reconstruction technique were employed. The dose-le ngth product (DLP) was 258.78 mGy-cm. COMPARISON: Chest CT 07/13/2022 FINDINGS: There is moderate emphysema. There are mild patchy airspace opacities in right upper lobe. There is mild atelectasis bilaterally. There is mild bronchiectasis in right middle lobe and lingula. Calcified left lung nodules and calcified left hilar lymph nodes are consistent with old granulomato us disease. No pleural effusion. The heart size is normal. There are coronary artery calcifications. There are calcifications of the aortic valve. No pericardial effusion. There is a 5 mm nodule in left thyroid lobe, likely not clinically significant. Calcifications in the spleen are consistent with ol d granulomatous disease. There is a 2.4 cm mass in left adrenal gland without change, likely an adeno ma. There are cysts in left kidney measuring up to 4.2 cm. There are 2 mm and 3 mm stones in left kid nahomy. IMPRESSION: 1. Mild patchy airspace opacities in right upper lobe, consistent with atelectasis versus pneumonia. 2. Moderate emphysema. Reviewed, dictated and finalized at location A. IMPRESSION: 1. Mild patchy airspace opacities in right upper lobe, consistent with atelecta sis versus pneumonia. 2. Moderate emphysema.
== END 2024-01-15 07:51 | disposition home or self-care (01) ==
PROVIDERS: PCP Family Medicine; Visit Provider Family Medicine
DX: R91.1 Solitary pulmonary nodule (principal); F17.200 Nicotine dependence, unspecified, uncomplicated; J43.9 Emphysema, unspecified; R91.8 Other nonspecific abnormal finding of lung field
CPT/HCPCS: 71260; Q9967

== ENCOUNTER 2024-04-29 10:16 | Outpatient (CLI) | payer MEDICARE, SELFPAY ==
--- NOTE | ~2024-04-29 | CT_ITS ---
CLINICAL INDICATION: Left lower quadrant pain COMPARISON: 11/26/2023. TECHNIQUE: Multiple contiguous axial images of the abdomen and pelvis were performed following the ad ministration of with 100 mL Omnipaque-350 intravenous contrast The dose-length product (DLP) was 308.39 mGy-cm. Automated exposure control and iterative reconstruction technique were employed. FINDINGS/OBSERVATIONS: Visualized lower thorax: The bilateral lung bases are clear. The heart is of normal size, without pericardial effusion. Liver: The liver enhances homogeneously and is not enlarged measuring 16 cm in longitudinal dimension Gallbladder and biliary system: The gallbladder is only minimally distended, and otherwise unremarkable. Pancreas: The pancreas enhances homogeneously without ductal dilatation. Spleen: The spleen enhances homogeneously and is not enlarged measuring 8 cm in longitudinal dimension. Kidneys: The bilateral kidneys enhance symmetrically without hydronephrosis or renal calculi. Simple cyst is i dentified within the lower pole of the left kidney PA Adrenal glands: Unremarkable. Gastrointestinal tract: Mural thickening within the sigmoid colon with surrounding inflammatory change and multiple diverticu la. These findings represent acute/early diverticulitis for which clinical correlation is needed. Follow-up to resolution as a malignancy has a similar appearance Appendix: The appendix is not definitively visualized. However, no pericecal inflammatory change is identified suggest the presence of acute appendicitis. Vasculature: Densely calcified atherosclerotic disease. Lymph nodes: No pathologically enlarged or morphologically suspicious lymph nodes within the retroperitoneum or at the root of the mesentery. Pelvic structures: The bladder is only minimally distended the bladder contains a focus of air suggesting iatrogenic air . . Asymmetric enhancement is identified within the superior lateral right wall of the bladder The prostate gland is not enlarged and demonstrates multiple brachytherapy seeds.. Body wall and musculoskeletal: Degenerative disease within the lumbosacral spine. No acute compression fracture. . IMPRESSION: Findings which demonstrate acute/early sigmoid diverticulitis. No drainable fluid collection. No gross perforation. Reviewed, dictated and finalized at location A. CADDIE
[2024-04-29 11:00] LABS: Estimated Glomerular Filt Rate > 60
--- OUTSIDE RECORDS SUMMARY | 2024-04-29 11:03 | XMS_ITS | Encounter Summary ---
Author Organization [facility] Address [address] [place] [address] Care Team Providers Care Insulation Inspector Name Role Phone Manohar Summers MD Primary Care Provider [phone] Encounter Details Date Type Department Care Team (Late st Contact Info) Description 02/01/2024 Lab Requisition [facility] - DermPath Lab [address] [place] [address] Jeromy Loomis MD [facility] DERMATOLOGY [address] [place] [phone] Neoplasm of uncertain behavior of skin Social History Tobacco Use Types Packs/Day Years Used Date Smoking Tobacco: Never Assessed Sex and Gender Information Value Date Recorded Sex Assigned at Not on file Gender Identity Not on file Sexual Orientation Not on file documented as of this encounter Plan of Treatment Not on file documented as of this encounter Procedures Procedure Name Priority Date/Time Associated Diagnosis Comments DERMATOPATHOLOGY Routine 02/01/2024 12:0 0 AM COMPUTER PROGRAMMING MANAGER Neoplasm of uncertain behavior of skin documented in this encounter Results * DERMATOPATHOLOGY (02/01/2024 12:00 AM COMPUTER PROGRAMMING MANAGER) Case Report Dermatopathology Report Case: [id number] Authorizing Provider: Jeromy Loomis MD Collected: 02/01/2024 12:00 AM Ordering Location: [facility] - Received: 02/02/2024 02:11 PM DermPath Lab Pathologist: Radha Gaona MD Specimen: Skin, right methodist 3:10 PM COMPUTER PROGRAMMING MANAGER DERMATOPATHOLOGY LABORATORY Final Diagnosis Specimen A. 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 The specimen consists of a shave biopsy measuring 7x6x1 mm. Jar 0. 3:10 PM [facility] DERMATOPATHOLOGY LABORATORY Microscopic Description Specimen A. SKIN, right methodist: There is an ulcer, beneath which there are vascular proliferation, fibroblasts, and an edematous stroma. COMMENT: Given the superficial nature of the biopsy specimen, a deeper dermal process cannot be excluded. 3:10 PM [facility] DERMATOPATHOLOGY LABORATORY Disclaimer An external and internal positive and negative controls are appropriate for the histochemical, immunohistochemical and immunofluorescence stain(s) in this case (if any), except where stated explicitly. The performance characteristics of the stain(s) cited in this report were developed and its performance characteristic determined by the Dermatopathology Laboratory at [facility], directed by Dr. Lisa Hawley. These tests need not be, and therefore are not, approved by the [place] Food and Drug Administration. The tests are used for clinical purposes. Billing Codes Specimen Charges Stain Charges 87481 1 3:10 PM [facility] DERMATOPATHOLOGY LABORATORY Embedded Images 3:10 PM [facility] DERMATOPATHOLOGY LABORATORY Pathology/Cytolog y TISSUE SPECIMEN FROM SKIN / Unknown 02/01/2024 02/02/2024 2:11 PM COMPUTER PROGRAMMING MANAGER Jeromy Loomis MD LAB - PATHOLOGY/CYTO LOGY ORDERABLES DERMATOPATHOLOGY LABORATORY [facility] - Department of Dermatology [facility] Medicine [address] [place] [address], [address] [phone] documented in this encounter Visit Diagnoses Diagnosis Neoplasm of uncertain behavior of skin documented in this encounter Care Teams Insulation Inspector Relationship Specialty Start Date End Date Manohar Summers [place] [address] PCP - General 08/29/19 documented as of this encounter
--- OUTSIDE RECORDS SUMMARY | 2024-04-29 11:03 | XMS_ITS | Patient Health Summary ---
Author Organization [facility] Address [address] [place] [address] Care Team Providers Care Director Of Marketing Operations Name Role Phone Manohar Summers MD Primary Care Provider [phone] Note from [facility],non-owned Affiliates and Associated Physician Practices is amultiple site organization consisting of ambulatory clinics and hospital sitesin [place], [place], [place] and [place]. This disclosure is being madepursuant to the Care Everywhere program and may not contain all information available regarding this patient. Last updated 17.[facility] Social History Tobacco Use Types Packs/Day Years Used Date Smoking Tobacco: Never Assessed Sex and Gender Information Value Date Recorded Sex Assigned at Not on file Gender Identity Not on file Sexual Orientation Not on file Procedures * DERMATOPATHOLOGY(Performed 02/01/2024) Performed for Neoplasm of uncertain behavior of skin Results * DERMATOPATHOLOGY (02/01/2024 12:00 AM PLAN CHECKER) Case Report Dermatopathology Report Case: [id number] Authorizing Provider: Jeromy Loomis MD Collected: 02/01/2024 12:00 AM Ordering Location: [facility] - Received: 02/02/2024 02:11 PM DermPath Lab Pathologist: Radha Gaona MD Specimen: Skin, right quaker 4 3:10 PM PLAN CHECKER DERMATOPATHOLOGY LABORATORY Final Diagnosis Specimen A. 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 The specimen consists of a shave biopsy measuring 7x6x1 mm. Jar 0. 3:10 PM [facility] DERMATOPATHOLOGY LABORATORY Microscopic Description Specimen A. SKIN, right quaker: There is an ulcer, beneath which there are vascular proliferation, fibroblasts, and an edematous stroma. COMMENT: Given the superficial nature of the biopsy specimen, a deeper dermal process cannot be excluded. 4 3:10 PM [facility] DERMATOPATHOLOGY LABORATORY Disclaimer An external and internal positive and negative controls are appropriate for the histochemical, immunohistochemical and immunofluorescence stain(s) in this case (if any), except where stated explicitly. The performance characteristics of the stain(s) cited in this report were developed and its performance characteristic determined by the Dermatopathology Laboratory at [facility], directed by Dr. Lisa Hawley. These tests need not be, and therefore are not, approved by the [place] Food and Drug Administration. The tests are used for clinical purposes. Billing Codes Specimen Charges Stain Charges 85030 1 4 3:10 PM [facility] DERMATOPATHOLOGY LABORATORY Embedded Images 3:10 PM [facility] DERMATOPATHOLOGY LABORATORY Pathology/Cytolog y TISSUE SPECIMEN FROM SKIN / Unknown 02/01/2024 02/02/2024 2:11 PM [facility] Jeromy Loomis MD LAB - PATHOLOGY/CYTO LOGY ORDERABLES DERMATOPATHOLOGY LABORATORY [facility] - Department of Dermatology [facility] [address] [place] [address], [address] [phone] Care Teams Director Of Marketing Operations Relationship Specialty Start Date End Date Manohar Summers MD [address] [place] [address] PCP - General 08/29/19
--- OUTSIDE RECORDS SUMMARY | 2024-04-29 11:03 | XMS_ITS | Continuity of Care Document ---
Author Organization [facility] Address [address] [place] [address] Phone Care Team Providers Care Roving Or Yarn Color Checker Name Role Phone Khoury OD, Shashank Unavailable Unavailable Advance Directives Directive Yes / No Effective Date File Name No Information Encounters Encounter Description Practice Location Reason(s) For Visit Diagnoses Date Provider Providers Copied on Encounter [facility], [address], [place], [place], [id number], [place] tel:[phone] [facility] No Information Aug-0 5-200 3 Khoury OD Shashank. [address], [place], [address], [place]. tel:[phone] Family History Family Member Type Diagnosis Age At Onset No Information Payers Payer name Insurance type Covered green party ID Authoriza tion(s) No Information Social History Type Description Quantity Date Captured Comments Sex Male Smoking Status No Information Chief Complaint And Reason For Visit No Information Reason For Referral Reason For Referral No Information History Of Present Illness Encounter Date Complaint History Of Prese nt Illness No Information Functional Status Date Functional Assessmen t No Information Instructions Date Instruction Additional Infor mation No Information Assessments Type Assessment Date No Information Patient Care Teams Name Effective Dates (start - stop) Status Members No Information
--- OUTSIDE RECORDS SUMMARY | 2024-04-29 11:03 | XMS_ITS | Clinical Summary ---
Author Organization [facility] Address [address] [place] [address] Care Team Providers Care Webbing Tacker Name Role Phone Manohar Summers MD Primary Care Provider [phone] Source Comments [facility],non-owned Affiliates and Associated Physician Practices is amultiple site organization consisting of ambulatory clinics and hospital sitesin [place], [place], [place] and [place]. This disclosure is being madepursuant to the Care Everywhere program and may not contain all information available regarding this patient. Last updated 17.[facility] Encounters Date Type Department Care Team Description 02/01/2024 Lab Requisition [facility] - DermPath Lab [address] [place] [address] Jeromy Loomis MD Neoplasm of uncertain behavior of skin from Last 3 Months Social History Tobacco Use Types Packs/Day Years Used Date Smoking Tobacco: Never Assessed Sex and Gender Information Value Date Recorded Sex Assigned at Not on file Gender Identity Not on file Sexual Orientation Not on file Plan of Treatment Health Maintenance Due Date Last Done Comments DTAP/TDAP/TD VACCINES (1 - Tdap) 1959 PNEUMOCOCCAL VACCINE 50+ (1 of 1 - PCV) 01/30/1992 ZOSTER VACCINE (1 of 2) 01/30/1992 Respiratory Syncytial Virus (RSV) Vaccine Pt: or over 60 yrs (1 - 1-dose 75+ series) 2017 COVID-19 VACCINE ( - 2023-2 5 season) 2023 INFLUENZA VACCINE (#1) 2023 DEPRESSION SCREENING 03/23/2024 MEDICARE AWV CALENDAR YEAR 2024 HEPATITIS B VACCINE Aged Out No longe r eligible based on patient's age to complete this topic HIB VACCINE Aged Out No longer eligi ble based on patient's age to complete this topic HPV VACCINE Aged Out No longer eligi ble based on patient's age to complete this topic MENINGOCOCCAL (Group B) VACCINE Aged Out No longer eligible based on patient's age to complete this topic MENINGOCOCCAL VACCINE Aged Out No sangeetha syeda eligible based on patient's age to complete this topic Procedures Procedure Name Priority Date/Time Associated Diagnosis Comments DERMATOPATHOLOGY Routine 02/01/2024 12:0 0 AM PHOTOENGRAVER APPRENTICE Neoplasm of uncertain behavior of skin from Last 3 Months Results * DERMATOPATHOLOGY (02/01/2024 12:00 AM PHOTOENGRAVER APPRENTICE) Case Report Dermatopathology Report Case: [id number] Authorizing Provider: Jeromy Loomis MD Collected: 02/01/2024 12:00 AM Ordering Location: [facility] - Received: 02/02/2024 02:11 PM DermPath Lab Pathologist: Radha Gaona MD Specimen: Skin, right jain 3:10 PM [facility] DERMATOPATHOLOGY LABORATORY Final Diagnosis Specimen A. 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 The specimen consists of a shave biopsy measuring 7x6x1 mm. Jar 0. 3:10 PM [facility] DERMATOPATHOLOGY LABORATORY Microscopic Description Specimen A. SKIN, right jain: There is an ulcer, beneath which there are vascular proliferation, fibroblasts, and an edematous stroma. COMMENT: Given the superficial nature of the biopsy specimen, a deeper dermal process cannot be excluded. 3:10 PM [facility] DERMATOPATHOLOGY LABORATORY Disclaimer An external and internal positive and negative controls are appropriate for the histochemical, immunohistochemical and immunofluorescence stain(s) in this case (if any), except where stated explicitly. The performance characteristics of the stain(s) cited in this report were developed and its performance characteristic determined by the Dermatopathology Laboratory at [facility], directed by Dr. Lisa Hawley. These tests need not be, and therefore are not, approved by the [place] Food and Drug Administration. The tests are used for clinical purposes. Billing Codes Specimen Charges Stain Charges 58948 1 4 3:10 PM PHOTOENGRAVER APPRENTICE DERMATOPATHOLOGY LABORATORY Embedded Images 4 3:10 PM PHOTOENGRAVER APPRENTICE DERMATOPATHOLOGY LABORATORY Pathology/Cytolog y TISSUE SPECIMEN FROM SKIN / Unknown 02/01/2024 02/02/2024 2:11 PM PHOTOENGRAVER APPRENTICE Jeromy Loomis MD LAB - PATHOLOGY/CYTO LOGY ORDERABLES DERMATOPATHOLOGY LABORATORY [facility] - Department of Dermatology [address], [address] [phone] from Last 3 Months Insurance Payer Benefit Plan / Group Subscriber ID Effective Dates Phone Address Type AETNA MEDICARE ADV AETNA MEDICARE ADV HMO/PPO/PFFS [id number] Effective for all dates [address] [place] [address] Medicare -Managed Care SELF PAY NO INSURANCE SELF PAY NO INSURANCE Effective for all dates [facility], [place] Self Pay AETNA MEDICARE ADV AETNA MEDICARE ADV HMO/PPO/PFFS [id number] Effective for all dates [address] [place] [address] Medicare -Managed Care SELF PAY NO INSURANCE SELF PAY NO INSURANCE Effective for all dates [facility], [place] Self Pay AETNA MEDICARE ADV AETNA MEDICARE ADV HMO/PPO/PFFS [id number] Effective for all dates [address] [place] [address] Medicare -Managed Care SELF PAY NO INSURANCE SELF PAY NO INSURANCE Effective for all dates [facility], [place] Self Pay AETNA MEDICARE ADV AETNA MEDICARE ADV HMO/PPO/PFFS [id number] Effective for all dates [address] [place] [address] Medicare -Managed Care SELF PAY NO INSURANCE SELF PAY NO INSURANCE Effective for all dates [facility], [place] Self Pay AETNA MEDICARE ADV AETNA MEDICARE ADV HMO/PPO/PFFS [id number] Effective for all dates [address] [place] [address] Medicare -Managed Care SELF PAY NO INSURANCE SELF PAY NO INSURANCE Effective for all dates [facility], [place] Self Pay AETNA MEDICARE ADV AETNA MEDICARE ADV HMO/PPO/PFFS [id number] Effective for all dates [address] [place] [address] Medicare -Managed Care SELF PAY NO INSURANCE SELF PAY NO INSURANCE Effective for all dates [facility] [place], [place] Self Pay AETNA MEDICARE ADV AETNA MEDICARE ADV HMO/PPO/PFFS [id number] Effective for all dates [address] [place] [address] Medicare -Managed Care SELF PAY NO INSURANCE SELF PAY NO INSURANCE Effective for all dates [facility], [place] Self Pay C MANAGED MEDICARE ADV [facility] MEDICARE ADV HMO/POS [id number] 03/23/2021-Prese nt [address] [address] [place] [address] Medicare -Managed Care Care Teams Webbing Tacker Relationship Specialty Start Date End Date Manohar Summers MD [address] [place] [address] PCP - General 08/29/19
--- OUTSIDE RECORDS SUMMARY | 2024-04-29 11:03 | XMS_ITS | Clinical Summary ---
Author Organization [facility] Address [address] [place] [address] Care Team Providers Care Crm Marketing Analyst Name Role Phone Unavailable Primary Care Provider Unavailabl e Social History Tobacco Use Types Packs/Day Years Used Date Smoking Tobacco: Never Assessed Sex and Gender Information Value Date Recorded Sex Assigned at Not on file Legal Sex Male 8:12 PM CDT Gender Identity Not on file Sexual Orientation Not on file Plan of Treatment Health Maintenance Due Date Last Done Comments DTaP, Tdap and Td Vaccines ( 1 - Tdap) 1961 Zoster Vaccines (1 of 2) 01/30/1992 Pneumococcal Vaccine: 65+ Ye ars (1 of 1 - PCV) 2007 RSV Immunization or 60+ Years (1 - 1-dose 75+ series) 2017 COVID-19 Vaccine ( - 2023-2 5 season) 2023 Influenza Adult (#1) 2023 Meningococcal B Vaccine Aged Out No l onger eligible based on patient's age to complete this topic Meningococcal Vaccine Aged Out No sangeetha syeda eligible based on patient's age to complete this topic RSV Immunizations Under 20 Months Aged Out No longer eligible based on patient's age to complete this topic
--- OUTSIDE RECORDS SUMMARY | 2024-04-29 11:03 | XMS_ITS | Referral Summary ---
Author Organization [facility] Address [address] [place] [address] Care Team Providers Care Mill Worker Name Role Phone Manohar Summers MD Primary Care Provider [phone] Source Comments [facility],non-owned Affiliates and Associated Physician Practices is amultiple site organization consisting of ambulatory clinics and hospital sitesin [place], [place], [place] and [place]. This disclosure is being madepursuant to the Care Everywhere program and may not contain all information available regarding this patient. Last updated 17.[facility] Encounters Date Type Department Care Team Description 02/01/2024 Lab Requisition [facility] - DermPath Lab [address], [place] [address] Jeromy Loomis MD Neoplasm of uncertain behavior of skin from Last 3 Months Social History Tobacco Use Types Packs/Day Years Used Date Smoking Tobacco: Never Assessed Sex and Gender Information Value Date Recorded Sex Assigned at Not on file Gender Identity Not on file Sexual Orientation Not on file Plan of Treatment Not on file Procedures Procedure Name Priority Date/Time Associated Diagnosis Comments DERMATOPATHOLOGY Routine 02/01/2024 12:0 0 AM [employer] OPERATIONS SUPERVISOR Neoplasm of uncertain behavior of skin from Last 3 Months Results * DERMATOPATHOLOGY (02/01/2024 12:00 AM [employer] OPERATIONS SUPERVISOR) Case Report Dermatopathology Report Case: [id number] Authorizing Provider: Jeromy Loomis MD Collected: 02/01/2024 12:00 AM Ordering Location: [facility] - Received: 02/02/2024 02:11 PM DermPath Lab Pathologist: Radha Gaona MD Specimen: Skin, right synagogue 3:10 PM [employer] OPERATIONS SUPERVISOR DERMATOPATHOLOGY LABORATORY Final Diagnosis Specimen A. 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 The specimen consists of a shave biopsy measuring 7x6x1 mm. Jar 0. 3:[address] [facility] DERMATOPATHOLOGY LABORATORY Microscopic Description Specimen A. SKIN, right synagogue: There is an ulcer, beneath which there are vascular proliferation, fibroblasts, and an edematous stroma. COMMENT: Given the superficial nature of the biopsy specimen, a deeper dermal process cannot be excluded. 3:[address] [facility] DERMATOPATHOLOGY LABORATORY Disclaimer An external and internal positive and negative controls are appropriate for the histochemical, immunohistochemical and immunofluorescence stain(s) in this case (if any), except where stated explicitly. The performance characteristics of the stain(s) cited in this report were developed and its performance characteristic determined by the Dermatopathology Laboratory at [facility], directed by Dr. Lisa Hawley. These tests need not be, and therefore are not, approved by the [place] Food and Drug Administration. The tests are used for clinical purposes. Billing Codes Specimen Charges Stain Charges 58024 1 3:10 PM [employer] OPERATIONS SUPERVISOR DERMATOPATHOLOGY LABORATORY Embedded Images 3:[address] [facility] DERMATOPATHOLOGY LABORATORY Pathology/Cytolog y TISSUE SPECIMEN FROM SKIN / Unknown 02/01/2024 02/02/2024 2:11 PM [employer] OPERATIONS SUPERVISOR Jeromy Loomis MD LAB - PATHOLOGY/CYTO LOGY ORDERABLES DERMATOPATHOLOGY LABORATORY [facility] - Department of Dermatology [facility] Medicine [address] [place] [address], [address] [place] [address], [facility] [phone] from Last 3 Months Insurance Payer Benefit Plan / Group Subscriber ID Effective Dates Phone Address Type AETNA MEDICARE ADV AETNA MEDICARE ADV HMO/PPO/PFFS [id number] Effective for all dates [address] [place] [address] Medicare -Managed Care SELF PAY NO INSURANCE SELF PAY NO INSURANCE Effective for all dates [place] Self Pay AETNA MEDICARE ADV AETNA MEDICARE ADV HMO/PPO/PFFS [id number] Effective for all dates [address] [place] [address] Medicare -Managed Care SELF PAY NO INSURANCE SELF PAY NO INSURANCE Effective for all dates [place] Self Pay AETNA MEDICARE ADV AETNA MEDICARE ADV HMO/PPO/PFFS [id number] Effective for all dates [address] [place] [address] Medicare -Managed Care SELF PAY NO INSURANCE SELF PAY NO INSURANCE Effective for all dates [place] Self Pay AETNA MEDICARE ADV AETNA MEDICARE ADV HMO/PPO/PFFS [id number] Effective for all dates [address] [place] [address] Medicare -Managed Care SELF PAY NO INSURANCE SELF PAY NO INSURANCE Effective for all dates [place] Self Pay AETNA MEDICARE ADV AETNA MEDICARE ADV HMO/PPO/PFFS [id number] Effective for all dates [address] [place] [address] Medicare -Managed Care SELF PAY NO INSURANCE SELF PAY NO INSURANCE Effective for all dates [place] Self Pay AETNA MEDICARE ADV AETNA MEDICARE ADV HMO/PPO/PFFS [id number] Effective for all dates [address] [place] [address] Medicare -Managed Care SELF PAY NO INSURANCE SELF PAY NO INSURANCE Effective for all dates [place] Self Pay AETNA MEDICARE ADV AETNA MEDICARE ADV HMO/PPO/PFFS [id number] Effective for all dates [address] [place] [address] Medicare -Managed Care SELF PAY NO INSURANCE SELF PAY NO INSURANCE Effective for all dates [place] Self Pay [facility] MANAGED MEDICARE ADV UHC MEDICARE ADV HMO/POS [id number] 03/23/2021-Sheela [address] [address] [place] [address] Medicare -Managed [place] [address] FRANCISCO KAISER Personal/Family Spouse [address] [address] FRANCISCO KAISER Personal/Family Spouse [address] [place] [address] FRANCISCO KAISER Personal/Family [address] [place] [address] [place] [address] FRANCISCO KAISER Personal/Family [address] [place] [address] [place] [address] Care Teams Mill Worker Relationship Specialty Start Date End Date Manohar Summers MD [address] [place] [address] PCP - General 08/29/19
== END 2024-04-29 10:17 | disposition home or self-care (01) ==
PROVIDERS: PCP Family Medicine; Visit Provider Family Medicine
DX: K57.32 Diverticulitis of large intestine without perforation or abscess without bleeding (principal)
CPT/HCPCS: 74177; Q9967

== ENCOUNTER 2024-06-21 11:00 | Outpatient (RCR) | payer MEDICARE, SELFPAY ==
--- NOTE | 2024-04-15 17:09 | OPREHPOC ---
Outpatient Therapy Plan of Care This is a Multidisciplinary Plan of Care that may contain components documented by all disciplines (PT, OT, and ST.) PT Problem 1 PT Problem #1 Knowledge Deficit PT Goal 1 Goal / Goal Update [place] with HEP Target Visit 4 PT Goal 2 Goal / Goal Update Patient will report no pain greater than 3/10 for 2 consecutive weeks Target Visit 8 PT Problem 2 PT Problem #2 Impaired Range of Motion PT Goal 1 Goal / Goal Update Improve prasad hip abduction to 40 degrees to improve pelvic independent mobility Target Visit 8 PT Problem 3 PT Problem #3 Impaired Strength PT Goal 1 Goal / Goal Update 1. Improve prasad hip abduction strength to 4/5 to improve lateral stability with gait and ADLs 2. Improve prasad hip flexion strength to 4+/5 to improve foot clearance with gait Target Visit 8 PT Goal 1 Goal / Goal Update Demonstrate ability to perform sit to stand without pain Target Visit 8
--- NOTE | 2024-04-15 17:09 | PTOPEVAL1 ---
Assessment and note entered by Ben Sanchez, PT Evaluation Information Assessment Status Evaluation ICD-10 Condition Codes (PT) Pain in low back M54.50 Onset March 2023 Subjective Information Reports that he has had pain of and on for years. He currently has bladder cancer and is undergoing BCG treatments for that. He is due for more imaging at this time. He will be undergoing 3 years of bladder cancer treatments. Pain is all in his lower back with no radiculopathy. He is sleeping well and gets pain relief with laying down. Whenever he can take pressure off his back it helps. He was told not to lift anything over 5# . He has been wearing a back brace fir pain relief . Only Tylenol right now for pain. Reported Pain Level Pain Score 2: Self Report Assessment PT Clinical Summary Patient presents with signs and symptoms consistent with lumbar stenosis and hip OA. He has very limited mobility in left hip affecting gait and mobility. Patient will beenfit forms killed therapy to address these deficits. Plan of Care Interventions Gait Training,Manual Therapy,Neuro Re-education, Therapeutic Activities,Therapeutic Exercise PT Services Indicated Yes Treatment Frequency and 2x/week for 8 visits Duration These treatments will address the objective and functional deficits as defined above. The patient will be advanced safely and appropriately in order for the patient to progress towards his/her prior level of function. Additional exercises will be introduced and as well as a comprehensive home exercise program upon discharge, if needed, ?to ensure carryover of functional gains achieved in the clinic. This treatment plan has been reviewed and agreement upon by the patient.
--- NOTE | 2024-05-03 13:00 | PCPTNOTE ---
Patient no showed to appointment this date. Called and left voicemail.
--- NOTE | 2024-05-05 10:41 | PCPTNOTE ---
Patient called to cancel due to .
--- NOTE | 2024-05-10 10:55 | PCPTNOTE ---
Patient canceled therapy this date with no reason given.
--- NOTE | 2024-05-13 15:55 | OPREHPOC ---
Outpatient Therapy Plan of Care This is a Multidisciplinary Plan of Care that may contain components documented by all disciplines (PT, OT, and ST.) PT Problem 1 PT Problem #1 Knowledge Deficit PT Goal 1 Goal / Goal Update [place] with HEP Target Visit 4 Progress Met PT Goal 2 Goal / Goal Update Patient will report no pain greater than 3/10 for 2 consecutive weeks Target Visit 14 Progress Partially Met PT Problem 2 PT Problem #2 Impaired Range of Motion PT Goal 1 Goal / Goal Update Improve prasad hip abduction to 40 degrees to improve pelvic independent mobility Target Visit 14 Progress Partially Met PT Problem 3 PT Problem #3 Impaired Strength PT Goal 1 Goal / Goal Update 1. Improve prasad hip abduction strength to 4/5 to improve lateral stability with gait and ADLs 2. Improve prasad hip flexion strength to 4+/5 to improve foot clearance with gait Target Visit 14 PT Goal 1 Goal / Goal Update Demonstrate ability to perform sit to stand without pain Target Visit 14
--- NOTE | 2024-05-13 15:56 | PTOPPROG ---
Assessment and note entered by Ben Sanchez, PT Evaluation Information Assessment Status Progress ICD-10 Condition Codes (PT) Pain in low back M54.50 Onset March 2023 Subjective Information Reports that overall he really feels that therapy has helped with the decompression of his back and strengthening of his hips. He has seen functional progress because of this. Would like to continue therapy to continue to work on functional independence. Assessment PT Clinical Summary Patient has seen both strength and ROM progress this date. We are seeing improved gait pattern with improved gait posturing as well. Overall continues to show some deficits but has made very positive progress and will benefit from continuation at this time to continue to address. Plan of Care Interventions Gait Training,Manual Therapy,Neuro Re-education, Therapeutic Activities,Therapeutic Exercise PT Services Indicated Yes Treatment Frequency and 2x/week for 8 visits Duration These treatments will address the objective and functional deficits as defined above. The patient will be advanced safely and appropriately in order for the patient to progress towards his/her prior level of function. Additional exercises will be introduced and as well as a comprehensive home exercise program upon discharge, if needed, ?to ensure carryover of functional gains achieved in the clinic. This treatment plan has been reviewed and agreement upon by the patient.
--- NOTE | 2024-06-21 12:51 | OPREHPOC ---
Outpatient Therapy Plan of Care This is a Multidisciplinary Plan of Care that may contain components documented by all disciplines (PT, OT, and ST.) PT Problem 1 PT Problem #1 Knowledge Deficit PT Goal 1 Goal / Goal Update [place] with HEP Target Visit 4 Progress Met PT Goal 2 Goal / Goal Update Patient will report no pain greater than 3/10 for 2 consecutive weeks Target Visit 18 Progress Partially Met PT Problem 2 PT Problem #2 Impaired Range of Motion PT Goal 1 Goal / Goal Update Improve prasad hip abduction to 40 degrees to improve pelvic independent mobility Target Visit 18 Progress Partially Met PT Problem 3 PT Problem #3 Impaired Strength PT Goal 1 Goal / Goal Update 1. Improve prasad hip abduction strength to 4/5 to improve lateral stability with gait and ADLs 2. Improve prasad hip flexion strength to 4+/5 to improve foot clearance with gait Target Visit 18 Progress Partially Met PT Goal 1 Goal / Goal Update Demonstrate ability to perform sit to stand without pain Target Visit 18 Progress Partially Met
--- NOTE | 2024-06-21 12:51 | PTOPPROG ---
Assessment and note entered by Ben Sanchez, PT Evaluation Information Assessment Status Progress ICD-10 Condition Codes (PT) Pain in low back M54.50 Onset March 2023 Subjective Information Reports that overall he really feels that therapy has helped with the decompression of his back and strengthening of his hips. He has seen functional progress because of this. Would like to continue therapy to continue to work on functional independence. Assessment PT Clinical Summary During progress assessment we have seen improved hip mobility and hip strength at this time. This is directly correlating to improve gait cycle and subjective pain relief. Will continue to benefit for skilled therapy to address deficits. Plan of Care Interventions Gait Training,Manual Therapy,Neuro Re-education, Therapeutic Activities,Therapeutic Exercise PT Services Indicated Yes Treatment Frequency and 1x/week for 6 visits Duration These treatments will address the objective and functional deficits as defined above. The patient will be advanced safely and appropriately in order for the patient to progress towards his/her prior level of function. Additional exercises will be introduced and as well as a comprehensive home exercise program upon discharge, if needed, ?to ensure carryover of functional gains achieved in the clinic. This treatment plan has been reviewed and agreement upon by the patient.
--- NOTE | 2024-06-28 08:05 | PCPTNOTE ---
Patient called & cancelled scheduled appointment this date due to car troubles.
--- NOTE | 2024-07-12 10:24 | PCPTNOTE ---
Patient canceled appointment due his getting a pacemaker put in.
== END 2024-07-14 23:59 | disposition home or self-care (01) ==
LOC: ANHGOSHPT 11:00
PROVIDERS: PCP Family Medicine; Visit Provider Family Medicine
DX: M54.50 Low back pain, unspecified (principal)
CPT/HCPCS: 97110; 97140; 97161; 97530

== ENCOUNTER 2024-07-14 12:39 | Outpatient (CLI) | payer MEDICARE, SELFPAY ==
--- NOTE | ~2024-07-14 | XR_ITS ---
3 VIEWS LUMBAR SPINE Ordering provider: Raisa Foley MD History: . M54.50 - Low back pain, unspecified . Comparison: None. FINDINGS: VERTEBRAL BODIES: No visible fracture or subluxation. Levoscoliosis. Degenerative changes of the spin e. DISK SPACES: Narrowing of all disc spaces L1-L2, L2-L3 and L3-L4. Multilevel facet joint disease. SOFT TISSUES: Atherosclerotic changes of the aorta. IMPRESSION: No acute osseous abnormality lumbar spine. Multilevel degenerative disc disease. Reviewed, dictated and finalized at location A.
== END 2024-07-14 12:40 | disposition home or self-care (01) ==
LOC: GOSHIMG 12:40
PROVIDERS: PCP Anesthesiology Pain Medicine; Visit Provider Family Medicine
DX: M51.369 Other intervertebral disc degeneration, lumbar region without mention of lumbar back pain or lower extremity pain (principal)
CPT/HCPCS: 72110

== ENCOUNTER 2024-07-21 08:43 | Outpatient (CLI) | payer MEDICARE, SELFPAY ==
--- OUTSIDE RECORDS SUMMARY | 2024-07-21 08:52 | XMS_ITS | Clinical Summary ---
Author Organization [facility] Address [address] [place] [address] Care Team Providers Care Promotional Marketing Agent Name Role Phone Manohar Summers MD Primary Care Provider [phone] Source Comments [facility],non-owned Affiliates and Associated Physician Practices is amultiple site organization consisting of ambulatory clinics and hospital sitesin [place], [place], [place] and [place]. This disclosure is being madepursuant to the Care Everywhere program and may not contain all information available regarding this patient. Last updated 17.[facility] [place] [place] Social History Tobacco Use Types Packs/Day Years Used Date Smoking Tobacco: Never Assessed Sex and Gender Information Value Date Recorded Sex Assigned at Not on file Legal Sex Male 4:52 PM CDT Gender Identity Not on file [...] VACCINE ( - 2023-2 5 season) 2023 DEPRESSION SCREENING 03/23/2024 MEDICARE AWV CALENDAR YEAR 2024 INFLUENZA VACCINE (Season Ended) 2024 HEPATITIS B VACCINE Aged Out No longe r eligible based on patient's age to complete this topic HIB VACCINE Aged Out No longer eligi ble based on patient's age to complete this topic HPV VACCINE Aged Out No longer eligi ble based on patient's age to complete this topic MENINGOCOCCAL (Group B) VACC INE SHARED DECISION-MAKING Aged Out No longer eligibl e based on patient's age to complete this topic MENINGOCOCCAL GROUPS A/C/Y/W VACCINE Aged Out No longer eligible b ased on patient's age to complete [place] [address] [facility] [place] [address] AETNA MEDICARE ADV SELF PAY NO INSURANCE Member Subscriber Plan / Payer (Ef fective for All Dates) Name:Francisco Kaiser Member ID:Not on file Relation to Subscriber:Not on file Name:FRANCISCO KAISER Subscriber ID:Not on file (Home) Address: [address] [place] [address] [place] [address] Payer ID:Not on file Group ID:Not on file Type:Self Pay Address: [place], [place] [address] [facility] MEDICARE ADV SELF PAY NO INSURANCE Member Subscriber Plan / Payer (Ef fective for All Dates) Name:Francisco Kaiser Member ID:Not on file Relation to Subscriber:Not on file Name:FRANCISCO KAISER Subscriber ID:Not on file (Home) Address: [address] [place] [address] [place] [address] Payer ID:Not on file Group ID:Not on file Type:Self Pay Address: [place], [place] [address] [facility] MEDICARE ADV SELF PAY NO INSURANCE Member Subscriber Plan / Payer (Ef fective for All Dates) Name:Francisco Kaiser Member ID:Not on file Relation to Subscriber:Not on file Name:FRANCISCO KAISER Subscriber ID:Not on file (Home) Address: [address] [place] [address] [place] [address] Payer ID:Not on file Group ID:Not on file Type:Self Pay Address: [place], [place] AETNA MEDICARE ADV SELF PAY NO INSURANCE Member Subscriber Plan / Payer (Ef fective for All Dates) Name:Francisoc Kaiser Member ID:Not on file Relation to Subscriber:Not on file Name:FRANCISCO KAISER Subscriber ID:Not on file (Home) Address: [address] [place] [address] [place] [address] Payer ID:Not on file Group ID:Not on file Type:Self Pay Address: [place], [place] [address] AETNA MEDICARE ADV SELF PAY NO INSURANCE Member Subscriber Plan / Payer (Ef fective for All Dates) Name:Francisco Kaiser Member ID:Not on file Relation to Subscriber:Not on file Name:FRANCISCO KAISER Subscriber ID:Not on file (Home) Address: [address] [place] [address] [place] [address] Payer ID:Not on file Group ID:Not on file Type:Self Pay Address: [place], [place] * Guarantor: FRANCISCO KAISER Account Type Relation to Patient Date of Phone Billing Address Personal/Family [address] [place] [phone] AETNA MEDICARE ADV SELF PAY NO INSURANCE Member Subscriber Plan / Payer (Ef fective for All Dates) Name:Francisco Kaiser Member ID:Not on file Relation to Subscriber:Not on file Name:FRANCISCO KAISER Subscriber ID:Not on file (Home) Address: [address] [place] [address] [place] [id number] Payer ID:Not on file Group ID:Not on file Type:Self Pay Address: [place], [place] * Guarantor: FRANCISCO KAISER Account Type Relation to Patient Date of Phone Billing Address Personal/Family [address] [place] [phone] AETNA MEDICARE ADV SELF PAY NO INSURANCE Member Subscriber Plan / Payer (Ef fective for All Dates) Name:Francisco Kaiser Member ID:Not on file Relation to Subscriber:Not on file Name:FRANCISCO KAISER Subscriber ID:Not on file (Home) Address: [address] [place] [address] [place] [address] Payer ID:Not on file Group ID:Not on file Type:Self Pay Address: [place], [place] Care Teams Promotional Marketing Agent Relationship Specialty Start Date End Date Manohar Summers MD [address] [place], [place] [id number] PCP - General 08/29/19
--- OUTSIDE RECORDS SUMMARY | 2024-07-21 08:52 | XMS_ITS | Continuity of Care Document ---
Author Organization [facility] Address [address] [place] [address] Phone Care Team Providers Care Glass Forming Engineer Name Role Phone Khoury OD, Shashank Unavailable Unavailable Advance Directives Directive Yes / No Effective Date File Name No Information Encounters Encounter Description Practice Location Reason(s) For Visit Diagnoses Date Provider Providers Copied on Encounter [facility], [address], [place], [place], [id number], [place] tel:[phone] [facility] No Information Aug-0 5-200 3 Khoury OD Shashank. [address] , [address], [place], [address], [place]. tel:[phone] Family History Family Member Type Diagnosis Age [...]
--- OUTSIDE RECORDS SUMMARY | 2024-07-21 08:52 | XMS_ITS | Encounter Summary ---
Author Organization [facility] Address [address] [facility] [place] [address] Care Team Providers Care Blood Bank Laboratory Technologist Name Role Phone Manohar Summers MD Primary Care Provider [phone]- [phone] Encounter Details Date Type Department Care Team (Late st Contact Info) Description 02/01/2024 Lab Requisition [facility] - DermPath Lab [address] [place] [phone] Jeromy Loomis MD [facility] D[facility]MAT[facility] [address] [place] [phone] Neoplasm of uncertain behavior of skin [...] Comments DERMATOPATHOLOGY Routine 02/01/2024 12:0 0 AM HERPETOLOGY TEACHER Neoplasm of uncertain behavior of skin documented in this encounter Results * DERMATOPATHOLOGY (02/01/2024 12:00 AM HERPETOLOGY TEACHER) Case Report Dermatopathology Report Case: [id number] Authorizing Provider: Jeromy Loomis MD Collected: 02/01/2024 12:00 AM Ordering Location: [facility] - Received: 02/02/2024 02:11 PM DermPath Lab Pathologist: Radha Gaona MD Specimen: Skin, right shinto 4 3:10 PM HERPETOLOGY TEACHER DERMATOPATHOLOGY LABORATORY Final Diagnosis Specimen A. 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 The specimen consists of a shave biopsy measuring 7x6x1 mm. Jar 0. 3:10 PM [facility] DERMATOPATHOLOGY LABORATORY Microscopic Description Specimen A. SKIN, right shinto: There is an ulcer, beneath which there are vascular proliferation, fibroblasts, and an edematous stroma. COMMENT: Given the superficial nature of the biopsy specimen, a deeper dermal process cannot be excluded. 3:10 PM [facility] DERMATOPATHOLOGY LABORATORY Disclaimer An external and internal positive and negative controls are appropriate for the histochemical, immunohistochemical and immunofluorescence stain(s) in this case (if any), except where stated explicitly. The performance characteristics of the stain(s) cited in this report were developed and its performance characteristic determined by the Dermatopathology Laboratory at [facility], directed by Dr. Lisa Hawley. These tests need not be, and therefore are not, approved by the [place] Food and Drug Administration. The tests are used for clinical purposes. Billing Codes Specimen Charges Stain Charges 61837 1 3:10 PM HERPETOLOGY TEACHER DERMATOPATHOLOGY LABORATORY Embedded Images 3:10 PM HERPETOLOGY TEACHER DERMATOPATHOLOGY LABORATORY Pathology/Cytolog y TISSUE SPECIMEN FROM SKIN / Unknown 02/01/2024 02/02/2024 2:11 PM HERPETOLOGY TEACHER us Jeromy Loomis MD LAB - PATHOLOGY/CYTOLOGY ORDE EFRAIN Final Result DERMATOPATHOLOGY LABORATORY [facility] - Department of Dermatology [address] [place] [address], [facility] [phone] documented in this encounter Visit Diagnoses Diagnosis Neoplasm of uncertain behavior of skin documented in this encounter Care Teams Blood Bank Laboratory Technologist Relationship Specialty Start Date End Date Manohar Summers MD [address] [place] [address] PCP - General 08/29/19 documented as of this encounter
--- OUTSIDE RECORDS SUMMARY | 2024-07-21 08:52 | XMS_ITS | Clinical Summary ---
Author Organization [facility] Address [address] [place] [address] Care Team Providers Care Kettle Hand Name Role Phone Unavailable Primary Care Provider [...] Td Vaccines ( 1 - Tdap) 1961 Pneumococcal Vaccine: 50+ Ye ars (1 of 1 - PCV) 01/30/1992 Zoster Vaccines (1 of 2) 01/30/1992 RSV Immunization or 60+ Years (1 - 1-dose 75+ series) 2017 COVID-19 Vaccine ( - 2023-2 5 season) 2023 Meningococcal B Vaccine Aged Out No l onger eligible based on patient's age to complete this topic Meningococcal Vaccine Aged Out No sangeetha syeda eligible based on patient's age to complete this topic RSV Immunizations Under 20 Months Aged Out No longer eligible based on patient's age to complete this topic
[2024-07-21 19:21] LABS: Basophils Percent Auto 0.4 % (0.2-1.2); Eosinophils Absolute Auto 0.1 K/mm3 (0-0.3); Eosinophils Percent Auto 1.1 % (0-4.4); Hematocrit 45.3 % (42.0-52.0); Hemoglobin 14.1 g/dL (14.0-18.0); Immature Granulocyte Absolute 0.03 K/mm3 (0.00-0.031); Immature Granulocyte Percent A 0.4 % (0-0.5); Lymphocytes Absolute Auto 2.32 K/mm3 (0.9-3.2); Mean Corpuscular HGB Conc 31.1 g/dl (32-36); Mean Corpuscular Hemoglobin 30.7 pg (26-34); Mean Corpuscular Volume 98.7 fl (80-100); Mean Platelet Volume 9.6 fl (7.4-10.4); Monocytes Absolute Auto 0.7 K/mm3 (0.1-0.6); Monocytes Percent Auto 8.4 % (2.6-8.5); Neutrophils Absolute Auto 5.1 K/mm3 (1.3-6.7); Neutrophils Percent Auto 61.7 % (45.5-73.1); Platelet Count Result 240 k/mm3 (150-375); Red Blood Count 4.59 M/mm3 (4.6-6.20); Red Cell Distribution Width 14.3 % (11.5-14.5); White Blood Count 8.3 K/mm3 (4.5-10.0)
[2024-07-21 20:52] LABS: Alanine Aminotransferase 24 U/L (6-50); Albumin Level 4.3 g/dL (3.5-5.1); Alkaline Phosphatase 100 U/L (38-126); Anion Gap 9 mmol/L (4-12); Aspartate Amino Transferase 39 U/L (17-59); Bilirubin,Total 0.5 mg/dL (0.2-1.3); Blood Urea Nitrogen 15 mg/dL (9-20); Calcium 9.8 mg/dL (8.4-10.2); Carbon Dioxide 26 mmol/L (22-30); Chloride 104 mmol/L (98-107); Cholesterol 209 mg/dL (0-200); Estimated Glomerular Filt Rate > 60; Glucose 94 mg/dL (65-110); HDL Direct 57 mg/dL; Potassium 5.1 mmol/L (3.4-5.0); Sodium 139 mmol/L (137-145); Triglycerides 104 mg/dL (<150)
[2024-07-21 21:04] LABS: LDL Cholesterol Direct 109 mg/dL
[2024-07-21 21:26] LABS: Iron 107 ug/dL (49-181); Percent Iron Saturation 29 % (20-50)
[2024-07-21 21:58] LABS: Hemoglobin A1C 6.2 % (<5.7)
== END 2024-07-21 08:44 | disposition home or self-care (01) ==
PROVIDERS: PCP Family Medicine; Visit Provider Family Medicine
DX: E11.9 Type 2 diabetes mellitus without complications (principal); D64.9 Anemia, unspecified; E78.2 Mixed hyperlipidemia; Z13.1 Encounter for screening for diabetes mellitus
CPT/HCPCS: 36415; 80053; 80061; 82728; 83036; 83540; 83550; 85025

== ENCOUNTER 2024-08-05 08:03 | Outpatient (CLI) | payer MEDICARE, SELFPAY ==
--- NOTE | ~2024-08-05 | XR_ITS ---
AP and lateral views of the bilateral hips Clinical history: Pain Findings: No acute fracture or dislocation is seen. Osseous alignment is anatomic. Bilateral hip and SI joint spaces are preserved. Soft tissues are unremarkable. Prostate gland radiation seeds are pres ent. Impression: No significant abnormality is seen. Reviewed, dictated and finalized at location . Impression: No significant abnormality is seen.
== END 2024-08-05 08:04 | disposition home or self-care (01) ==
LOC: GOSHIMG 08:04
PROVIDERS: PCP Family Medicine; Visit Provider Anesthesiology Pain Medicine
DX: M25.551 Pain in right hip (principal); M25.552 Pain in left hip
CPT/HCPCS: 73521

== ENCOUNTER 2024-08-10 10:21 | Outpatient (CLI) | payer MEDICARE, SELFPAY ==
--- NOTE | ~2024-08-10 | MR_ITS ---
MRI of the lumbar spine Clinical History: Spinal stenosis Technique: Axial T2-weighted images, and sagittal T1-weighted, T2-weighted, and T2 fat-sat images wer e acquired. Findings: There is no fracture or subluxation lumbar spine. There is mild levoscoliosis. No suspiciou s bone marrow signal abnormality seen. At L1-L2, there is severe degenerative disc narrowing. There is mild disc bulge and mild facet arthro mendoza. No central canal stenosis. There is severe right neural foraminal narrowing. Left neural nury en preserved. At L2-L3, there is mild degenerative disc narrowing. There is mild disc bulge with small annular fiss ure. There is moderate to advanced facet arthropathy. No central canal stenosis. There is moderate to advanced right neural foraminal narrowing. Left neural foramen is minimally narrowed. At L3-L4, there is disc bulge with severe facet arthropathy. There is moderate central canal stenosis /thecal sac compression. There is severe right neural foraminal narrowing, and mild to moderate left neural foraminal narrowing. At L4-L5, there is disc bulge and severe facet arthropathy. No oniel central canal stenosis. There is left lateral recess stenosis and particular. There is severe left neural foraminal narrowing, and mi ld right neural foraminal narrowing. At L5-S1, there is broad-based disc bulge with mild facet arthropathy. No central canal stenosis. The re is moderate left neural foraminal narrowing, and minimal right neural foraminal narrowing. Paravertebral soft tissues are unremarkable. Impression: Moderate to advanced spondylosis, as detailed above, probably worst at L3-L4. Levoscoliosis. Reviewed, dictated and finalized at [facility]. Impression: Moderate to advanced spondylosis, as detailed above, probably worst at L3-L4. Levoscoliosis.
== END 2024-08-10 10:22 | disposition home or self-care (01) ==
LOC: GOSHIMG 10:21
PROVIDERS: PCP Family Medicine; Visit Provider Anesthesiology Pain Medicine
DX: M48.062 Spinal stenosis, lumbar region with neurogenic claudication (principal); M47.817 Spondylosis without myelopathy or radiculopathy, lumbosacral region
CPT/HCPCS: 72148

== ENCOUNTER 2024-08-16 08:00 | Outpatient (RCR) | payer MEDICARE, SELFPAY ==
--- NOTE | 2024-08-16 08:54 | OPREHPOC ---
Outpatient Therapy Plan of Care This is a Multidisciplinary Plan of Care that may contain components documented by all disciplines (PT, OT, and ST.) PT Problem 1 PT Problem #1 Knowledge Deficit PT Goal 1 Goal / Goal Update Burt with HEP Target Visit 4 Progress Met PT Goal 2 Goal / Goal Update Patient will report no pain greater than 3/10 for 2 consecutive weeks Target Visit 18 Progress Met PT Problem 2 PT Problem #2 Impaired Range of Motion PT Goal 1 Goal / Goal Update Improve prasad hip abduction to 40 degrees to improve pelvic independent mobility Target Visit 18 Progress Met PT Problem 3 PT Problem #3 Impaired Strength PT Goal 1 Goal / Goal Update 1. Improve prasad hip abduction strength to 4/5 to improve lateral stability with gait and ADLs 2. Improve prasad hip flexion strength to 4+/5 to improve foot clearance with gait Target Visit 18 Progress Met PT Goal 1 Goal / Goal Update Demonstrate ability to perform sit to stand without pain Target Visit 18 Progress Met
--- NOTE | 2024-08-16 08:54 | PTOPDC ---
Assessment and note entered by Ben Sanchez, PT Evaluation Information Assessment Status Discharge ICD-10 Condition Codes (PT) Pain in low back M54.50 Onset March 2023 Subjective Information Reports that overall he is doing better. Would like to get back to traveling, but unsure he can walk the airports. He still has the occasional back pain which is better and worse some days. He has been wearing his back belt which has helped a lot. Still has difficulty lifting anything greater than 5#. Reported Pain Level Pain Score 1: Self Report Assessment PT Clinical Summary Patient has met current goals for therapy at this time. Patient has been present for 17 visits in therapy and has seen significant improvement in gait cycle and hip/core strength. Patient suitable for discharge to [facility] at this time. Plan of Care PT Services Indicated Yes
== END 2024-08-16 14:55 | disposition home or self-care (01) ==
LOC: ANHGOSHPT 08:00
PROVIDERS: PCP Family Medicine; Visit Provider Family Medicine
DX: M54.50 Low back pain, unspecified (principal)
CPT/HCPCS: 97110; 97140; 97530

== ENCOUNTER 2025-01-19 12:55 | Outpatient (CLI) | payer MEDICARE, SELFPAY ==
--- OUTSIDE RECORDS SUMMARY | 2025-01-19 13:33 | XMS_ITS | Encounter Summary ---
Author Organization [facility] Address [address] [facility] [address] Care Team Providers Care Rn Social Services Name Role Phone Manohar Summers MD Primary Care Provider [phone]- [phone] Encounter Details Date Type Department Care Team (Late st Contact Info) Description 02/01/2024 Lab Requisition [facility] - DermPath Lab [address] [place] [phone] Jeromy Loomis MD [facility] DERMATOLOGY [address] [place] [phone] Neoplasm of uncertain behavior of skin [...] Comments DERMATOPATHOLOGY Routine 02/01/2024 12:0 0 AM CLINICAL LABORATORY SCIENCE PROFESSOR Neoplasm of uncertain behavior of skin documented in this encounter Results * DERMATOPATHOLOGY (02/01/2024 12:00 AM CLINICAL LABORATORY SCIENCE PROFESSOR) Case Report Dermatopathology Report Case: [id number] Authorizing Provider: Jeromy Loomis MD Collected: 02/01/2024 12:00 AM Ordering Location: [facility] - Received: 02/02/2024 02:11 PM DermPath Lab Pathologist: Radha Gaona MD Specimen: Skin, right anglican 4 3:10 PM CLINICAL LABORATORY SCIENCE PROFESSOR DERMATOPATHOLOGY LABORATORY Final Diagnosis Specimen A. 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 The specimen consists of a shave biopsy measuring 7x6x1 mm. Jar 0. 3:10 PM [facility] DERMATOPATHOLOGY LABORATORY Microscopic Description Specimen A. SKIN, right anglican: There is an ulcer, beneath which there are vascular proliferation, fibroblasts, and an edematous stroma. COMMENT: Given the superficial nature of the biopsy specimen, a deeper dermal process cannot be excluded. 3:10 PM [facility] DERMATOPATHOLOGY LABORATORY Disclaimer An external and internal positive and negative controls are appropriate for the histochemical, immunohistochemical and immunofluorescence stain(s) in this case (if any), except where stated explicitly. The performance characteristics of the stain(s) cited in this report were developed and its performance characteristic determined by the Dermatopathology Laboratory at [facility], directed by Dr. Lisa Hawley. These tests need not be, and therefore are not, approved by the [place] Food and Drug Administration. The tests are used for clinical purposes. Billing Codes Specimen Charges Stain Charges 27518 1 3:10 PM [facility] DERMATOPATHOLOGY LABORATORY Embedded Images 3:10 PM [facility] DERMATOPATHOLOGY LABORATORY Pathology/Cytolog y TISSUE SPECIMEN FROM SKIN / Unknown 02/01/2024 02/02/2024 2:11 PM [facility] us Jeromy Loomis MD LAB - PATHOLOGY/CYTOLOGY ORDE EFRAIN Final Result DERMATOPATHOLOGY LABORATORY [facility] - Department of Dermatology [address] [place] [address], [facility] [phone] documented in this encounter Visit Diagnoses Diagnosis Neoplasm of uncertain behavior of skin documented in this encounter Care Teams Rn Social Services Relationship Specialty Start Date End Date Manohar Summers MD [address] [place] [address] PCP - General 08/29/19 documented as of this encounter
--- OUTSIDE RECORDS SUMMARY | 2025-01-19 13:33 | XMS_ITS | Clinical Summary ---
Author Organization [facility] Address [address] [place] [address] Care Team Providers Care Mat Making Machine Tender Name Role Phone Unavailable Primary Care Provider [...] 75+ series) 2017 COVID-19 Vaccine ( - 2024-2 6 season) 2024 Influenza Adult (#1) 2024 Hepatitis A Vaccines Aged Out No long er eligible based on patient's age to complete this topic Meningococcal B Vaccine Aged Out No l onger eligible based on patient's age to complete this topic Meningococcal Vaccine Aged Out No sangeetha syeda eligible based on patient's age to complete this topic RSV Immunizations Under 20 Months Aged Out No longer eligible based on patient's age to complete this topic
--- OUTSIDE RECORDS SUMMARY | 2025-01-19 13:33 | XMS_ITS | Clinical Summary ---
Author Organization [facility] Address [address] [facility] [place] [address] Care Team Providers Care Lining Mechanic Name Role Phone Manohar Summers MD Primary Care Provider Source Comments [facility],non-owned Affiliates and Associated Physician Practices is amultiple site organization consisting of ambulatory clinics and hospital sitesin [place], [place], [place] and [place]. This disclosure is being madepursuant to the Care Everywhere program and may not contain all information available regarding this patient. Last updated 17.[facility] [employer] Social History Tobacco Use Types Packs/Day Years [...] yrs (1 - 1-dose 75+ series) 2017 DEPRESSION SCREENING 03/23/2024 MEDICARE AWV CALENDAR YEAR 2024 COVID-19 VACCINE (1 - 2023-2 5 season) 2024 INFLUENZA VACCINE (#1) 2024 HEPATITIS B VACCINE Aged Out No [...] age to complete [place] [address] [facility] [place] [address] [employer] MEDICARE ADV SELF PAY NO INSURANCE Member Subscriber Plan / Payer (Ef fective for All Dates) Name:Francisco Kaiser Member ID:Not on file Relation to Subscriber:Not on file Name:FRANCISCO KAISER Subscriber ID:Not on file (Home) Address: [address] [place] [address] [place] [address] Payer ID:Not on file Group ID:Not on file Type:Self Pay Address: [place], [place] [address] [facility] MEDICARE ADV SELF PAY NO INSURANCE Member Subscriber Plan / Payer (Ef fective for All Dates) Name:Francisco Kaiser Member ID:Not on file Relation to Subscriber:Not on file Name:FRANCISCO KAISER Subscriber ID:Not on file (Home) Address: [address] [place] [address] [place] [address] Payer ID:Not on file Group ID:Not on file Type:Self Pay Address: [place], [place] [address] [facility] MEDICARE ADV SELF PAY NO INSURANCE Member Subscriber Plan / Payer (Ef fective for All Dates) Name:Francisco Kaiser Member ID:Not on file Relation to Subscriber:Not on file Name:FRANCISCO KAISER Subscriber ID:Not on file (Home) Address: [address] [place] [address] [place] [address] Payer ID:Not on file Group ID:Not on file Type:Self Pay Address: [place], [place] [employer] MEDICARE ADV SELF PAY NO INSURANCE Member Subscriber Plan / Payer (Ef fective for All Dates) Name:Francisco Kaiser Member ID:Not on file Relation to Subscriber:Not on file Name:FRANCISCO KAISER Subscriber ID:Not on file (Home) Address: [address] [place] [address] [place] [address] Payer ID:Not on file Group ID:Not on file Type:Self Pay Address: [place], [place] [address] [employer] MEDICARE ADV SELF PAY NO INSURANCE Member Subscriber Plan / Payer (Ef fective for All Dates) Name:Francisco Kaiser Member ID:Not on file Relation to Subscriber:Not on file Name:FRANCISCO KAISER Subscriber ID:Not on file (Home) Address: [address] [place] [address] [place] [address] Payer ID:Not on file Group ID:Not on file Type:Self Pay Address: [place], [place] * Guarantor: FRANCISCO KAISER Account Type Relation to Patient Date of Phone Billing Address Personal/Family [address] [facility] [place] [phone] [employer] MEDICARE ADV SELF PAY NO INSURANCE Member Subscriber Plan / Payer (Ef fective for All Dates) Name:Francisco Kaiser Member ID:Not on file Relation to Subscriber:Not on file Name:FRANCISCO KAISER Subscriber ID:Not on file (Home) Address: [address] [place] [address] [place] [phone] Payer ID:Not on file Group ID:Not on file Type:Self Pay Address: [place], [place] * Guarantor: FRANCISCO KAISER Account Type Relation to Patient Date of Phone Billing Address Personal/Family [address] [facility] [address] [place] [phone] [employer] MEDICARE ADV SELF PAY NO INSURANCE Member Subscriber Plan / Payer (Ef fective for All Dates) Name:Francisco Kaiser Member ID:Not on file Relation to Subscriber:Not on file Name:FRANCISCO KAISER Subscriber ID:Not on file (Home) Address: [address] [place] [address] [place] [address] Payer ID:Not on file Group ID:Not on file Type:Self Pay Address: [place], [place] Care Teams Lining Mechanic Relationship Specialty Start Date End Date Manohar Summers MD [address] [place], [place] [phone] PCP - General 08/29/19
[2025-01-19 19:01] LABS: Hematocrit 43.4 % (42.0-52.0); Hemoglobin 13.6 g/dL (14.0-18.0); Immature Granulocyte Percent A 0.4 % (0-0.5); Lymphocytes Absolute Auto 2.25 K/mm3 (0.9-3.2); Mean Corpuscular HGB Conc 31.3 g/dl (32-36); Mean Corpuscular Hemoglobin 31.3 pg (26-34); Mean Corpuscular Volume 99.8 fl (80-100); Nucleated Red Blood Cells Absolute Auto 0.000 K/mm3 (0.0-0.012); Nucleated Red Blood Cells Perc 0.0 % (0.0-0.2); Platelet Count Result 258 k/mm3 (150-375); Red Blood Count 4.35 M/mm3 (4.6-6.20); White Blood Count 8.5 K/mm3 (4.5-10.0)
[2025-01-19 19:06] LABS: Anion Gap 7 mmol/L (4-12); Blood Urea Nitrogen 16 mg/dL (9-20); Calcium 9.6 mg/dL (8.4-10.2); Carbon Dioxide 27 mmol/L (22-30); Chloride 108 mmol/L (98-107); Estimated Glomerular Filt Rate > 60; Glucose 82 mg/dL (65-110); Potassium 4.0 mmol/L (3.4-5.0); Sodium 142 mmol/L (137-145)
[2025-01-19 19:08] LABS: Alanine Aminotransferase 17 U/L (6-50); Albumin Level 3.9 g/dL (3.5-5.1); Alkaline Phosphatase 87 U/L (38-126); Anion Gap 6 mmol/L (4-12); Aspartate Amino Transferase 41 U/L (17-59); Bilirubin,Total 0.3 mg/dL (0.2-1.3); Blood Urea Nitrogen 16 mg/dL (9-20); Calcium 9.7 mg/dL (8.4-10.2); Carbon Dioxide 28 mmol/L (22-30); Chloride 109 mmol/L (98-107); Cholesterol 184 mg/dL (0-200); Estimated Glomerular Filt Rate > 60; Glucose 84 mg/dL (65-110); HDL Direct 47 mg/dL; Potassium 4.5 mmol/L (3.4-5.0); Sodium 143 mmol/L (137-145); Total Protein 7.4 g/dL (6.3-8.2); Triglycerides 144 mg/dL (<150)
[2025-01-19 19:14] LABS: Hemoglobin A1C 5.7 % (<5.7)
[2025-01-19 19:38] LABS: MALB Creatinine Ratio 150.5 mg/g (0-30)
== END 2025-01-19 12:56 | disposition home or self-care (01) ==
LOC: ANHGOSHLAB 12:57
PROVIDERS: Family Medicine; PCP Family Medicine Adolescent Medicine
DX: E87.5 Hyperkalemia (principal); K62.5 Hemorrhage of anus and rectum; E78.2 Mixed hyperlipidemia; E11.9 Type 2 diabetes mellitus without complications
CPT/HCPCS: 36415; 80048; 80053; 80061; 82043; 83036; 85025

== ENCOUNTER 2025-02-09 08:59 | Outpatient (CLI) | payer MEDICARE, SELFPAY ==
--- NOTE | ~2025-02-09 | CT_ITS ---
EXAMINATION: CT abdomen pelvis w con DATE: 02/09/2025 09:21 INDICATION: Hemorrhage of anus and rectum TECHNIQUE: Computed tomography (CT) of the abdomen and pelvis was performed with 100 mL Omnipaque-350 intravenous contrast. Automated exposure control and iterative reconstruction technique were employed. The dose-length product was 355.93 mGy-cm. COMPARISON: 04/29/2024 FINDINGS: Mild discoid atelectasis at the basilar left lower lobe with additional mild atelectasis at the anterior lingula and right middle lobe. Heart size is normal. Atherosclerotic coronary artery calcification. No pericardial or pleural effusion. Focal hepatic steatosis at the ligamentum teres. Is decompressed gallbladder is normal. Splenic calcification consistent with old granulomatous disease. Multiple pancreatic parenchymal calcification consistent with sequela of chronic pancreatitis. Chronic 1.4 cm and 2.4 cm left adrenal adenomas which demonstrated diagnostic low-attenuation on earlier noncontrast CT dated 10/31/22. Right adrenal gland is normal. Bilateral nephrolithiasis with a couple nonobstructing stones at the lower pole of the left kidney measuring up to 9 mm and a 7 mm stone in the proximal most right ureter. There is moderate right hydroureteronephrosis of this extends beyond the stone in the proximal ureter to the ureterovesicular junction where there is a 1.5 cm soft tissue density nodule which concerning for obstructing urothelial carcinoma. There are 3 cysts in the left kidney the largest measuring 4.7 cm. No left-sided hydronephrosis or hydroureter. Moderate sigmoid and descending colon predominant diverticulosis without adjacent inflammatory stranding to suggest diverticulitis. 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 No free intraperitoneal gas or fluid. No pathologically enlarged abdominal or pelvic lymphadenopathy. There is calcified atherosclerosis of the normal caliber abdominal aorta and many of the other arteries. 30 degrees thoracolumbar levoscoliosis with severe spondylosis. IMPRESSION: 1. 1.5 cm obstructing soft tissue density nodule at the right ureterovesicular junction resulting in moderate right hydroureteronephrosis and concerning for recurrent urothelial carcinoma in patient with reported prior bladder cancer. Recommend urologic consultation. 2. Bilateral nonobstructing nephrolithiasis. Reviewed, dictated and finalized at location A. T COMBINING OPERATOR IMPRESSION: 1. 1.5 cm obstructing soft tissue density nodule at the right ureterovesicular junction resulting in moderate right hydroureteronephrosis and concerning for r ecurrent urothelial carcinoma in patient with reported prior bladder cancer. Re commend urologic consultation. 2. Bilateral nonobstructing nephrolithiasis.
--- OUTSIDE RECORDS SUMMARY | 2025-02-09 09:53 | XMS_ITS | Clinical Summary ---
Author Organization [facility] Address [address] [facility] [place] [address] Care Team Providers Care Lead Programmer Name Role Phone Manohar Summers MD Primary Care Provider Source Comments [facility],non-owned Affiliates and Associated Physician Practices is amultiple site organization consisting of ambulatory clinics and hospital sitesin [place], [place] and [place]. This disclosure is being madepursuant to the Care Everywhere program and may not contain all information available regarding this patient. Last updated 17.[facility] [employer] Social History Tobacco Use Types Packs/Day Years [...] MEDICARE AWV CALENDAR YEAR 2024 COVID-19 VACCINE ( - 2024-2 6 season) 2024 INFLUENZA VACCINE (#1) 2024 HEPATITIS [...] age to complete this [place] [address] [facility] MANAG[place] [address] [employer] MEDICARE ADV SELF PAY NO INSURANCE Member Subscriber Plan / Payer (Ef fective for All Dates) Name:Francisco Kaiser Member ID:Not on file Relation to Subscriber:Not on file Name:FRANCISCO KAISER Subscriber ID:Not on file (Home) Address: [address] [place] [address] [place] [address] Payer ID:Not on file Group ID:Not on file Type:Self Pay Address: [place], [place] [address] [facility] MEDICARE ADV SELF PAY NO INSURANCE Member Subscriber Plan / Payer (Ef fective for All Dates) Name:Francisco Kaiser Member ID:Not on file Relation to Subscriber:Not on file Name:FRANCISCO KAISER Subscriber ID:Not on file (Home) Address: [address] [place] [address] [place] [address] Payer ID:Not on file Group ID:Not on file Type:Self Pay Address: [place], [place] [address] [facility] MEDICARE ADV SELF PAY NO INSURANCE Member Subscriber Plan / Payer (Ef fective for All Dates) Name:Francisco Kaiser Member ID:Not on file Relation to Subscriber:Not on file Name:FRANCISCO KAISER Subscriber ID:Not on file (Home) Address: [address] [place] [address] [place] [address] Payer ID:Not on file Group ID:Not on file Type:Self Pay Address: [place], [place] [employer] MEDICARE ADV SELF PAY NO INSURANCE Member Subscriber Plan / Payer (Ef fective for All Dates) Name:Francisco Kaiser Member ID:Not on file Relation to Subscriber:Not on file Name:FRANCISCO KAISER Subscriber ID:Not on file (Home) Address: [address] [place] [address] [place] [address] Payer ID:Not on file Group ID:Not on file Type:Self Pay Address: [place], [place] [address] [employer] MEDICARE ADV SELF PAY NO INSURANCE Member Subscriber Plan / Payer (Ef fective for All Dates) Name:Francisco Kaiser Member ID:Not on file Relation to Subscriber:Not on file Name:FRANCISCO KAISER Subscriber ID:Not on file (Home) Address: [address] [place] [address] [place] [address] Payer ID:Not on file Group ID:Not on file Type:Self Pay Address: [place], [place] * Guarantor: FRANCISCO KAISER Account Type Relation to Patient Date of Phone Billing Address Personal/Family [address] [facility] [place] [phone] [employer] MEDICARE ADV SELF PAY NO INSURANCE Member Subscriber Plan / Payer (Ef fective for All Dates) Name:Francisco Kaiser Member ID:Not on file Relation to Subscriber:Not on file Name:FRANCISCO KAISER Subscriber ID:Not on file (Home) Address: [address] [place] [address] [place] [phone] Payer ID:Not on file Group ID:Not on file Type:Self Pay Address: [place], [place] * Guarantor: FRANCISCO KAISER Account Type Relation to Patient Date of Phone Billing Address Personal/Family [address] [address] [place] [phone] [employer] MEDICARE ADV SELF PAY NO INSURANCE Member Subscriber Plan / Payer (Ef fective for All Dates) Name:Francisco Kaiser Member ID:Not on file Relation to Subscriber:Not on file Name:FRANCISCO KAISER Subscriber ID:Not on file (Home) Address: [address] [place] [address] [place] [address] Payer ID:Not on file Group ID:Not on file Type:Self Pay Address: [place], [place] Care Teams Lead Programmer Relationship Specialty Start Date End Date Manohar Summers MD [address] [place], [place] [phone] PCP - General 08/29/19
--- OUTSIDE RECORDS SUMMARY | 2025-02-09 09:53 | XMS_ITS | Clinical Summary ---
Author Organization [facility] Address [address] [place] [address] Care Team Providers Care Pathological Technician Name Role Phone Unavailable Primary Care Provider [...]
--- OUTSIDE RECORDS SUMMARY | 2025-02-09 09:53 | XMS_ITS | Encounter Summary ---
Author Organization [facility] Address [address] [place] [address] Care Team Providers Care Surfacer Operator Name Role Phone Manohar Summers MD Primary Care Provider [phone] Encounter Details Date Type Department Care Team (Late st Contact Info) Description 02/01/2024 Lab Requisition [facility] - DermPath Lab [address] [place] [id number] Jeromy Loomis MD [facility] DERMATOLOGY [address] [place] [phone] Neoplasm of uncertain behavior of skin [...] Comments DERMATOPATHOLOGY Routine 02/01/2024 12:0 0 AM BOTTOM STOP ATTACHER Neoplasm of uncertain behavior of skin documented in this encounter Results * DERMATOPATHOLOGY (02/01/2024 12:00 AM BOTTOM STOP ATTACHER) Case Report Dermatopathology Report Case: [id number] Authorizing Provider: Jeromy Loomis MD Collected: 02/01/2024 12:00 AM Ordering Location: [facility] - Received: 02/02/2024 02:11 PM DermPath Lab Pathologist: Radha Gaona MD Specimen: Skin, right evangelical 4 3:10 PM BOTTOM STOP ATTACHER DERMATOPATHOLOGY LABORATORY Final Diagnosis Specimen A. 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 The specimen consists of a shave biopsy measuring 7x6x1 mm. Jar 0. 3:10 PM [facility] DERMATOPATHOLOGY LABORATORY Microscopic Description Specimen A. SKIN, right evangelical: There is an ulcer, beneath which there are vascular proliferation, fibroblasts, and an edematous stroma. COMMENT: Given the superficial nature of the biopsy specimen, a deeper dermal process cannot be excluded. 3:10 PM [facility] DERMATOPATHOLOGY LABORATORY Disclaimer An external and internal positive and negative controls are appropriate for the histochemical, immunohistochemical and immunofluorescence stain(s) in this case (if any), except where stated explicitly. The performance characteristics of the stain(s) cited in this report were developed and its performance characteristic determined by the Dermatopathology Laboratory at [facility], directed by Dr. Lisa Hawley. These tests need not be, and therefore are not, approved by the [place] Food and Drug Administration. The tests are used for clinical purposes. Billing Codes Specimen Charges Stain Charges 88731 1 3:10 PM [facility] DERMATOPATHOLOGY LABORATORY Embedded Images 3:10 PM [facility] DERMATOPATHOLOGY LABORATORY Pathology/Cytolog y TISSUE SPECIMEN FROM SKIN / Unknown 02/01/2024 02/02/2024 2:11 PM [facility] us Jeromy Loomis MD LAB - PATHOLOGY/CYTOLOGY ORDE EFRAIN Final Result DERMATOPATHOLOGY LABORATORY [facility] - Department of Dermatology [address] [place] [address], [facility] [phone] documented in this encounter Visit Diagnoses Diagnosis Neoplasm of uncertain behavior of skin documented in this encounter Care Teams Surfacer Operator Relationship Specialty Start Date End Date Manohar Summers MD [address] [place] [address] PCP - General 08/29/19 documented as of this encounter
== END 2025-02-09 09:00 | disposition home or self-care (01) ==
PROVIDERS: PCP Family Medicine Adolescent Medicine; Visit Provider Nurse Practitioner Family
DX: K62.5 Hemorrhage of anus and rectum (principal); K62.89 Other specified diseases of anus and rectum; N20.0 Calculus of kidney
CPT/HCPCS: 74177; Q9967

== ENCOUNTER 2025-02-27 08:58 | Outpatient (CLI) | payer MEDICARE, SELFPAY ==
--- NOTE | 2025-02-27 09:19 | ECG_ITS ---
Test Date: 2025-02-27 09:29:15 Measurements Intervals [place] Rate: 55 P: 64 [place]: 214 QRS: 106 QRSD: 105 T: 92 QT: 402 QTc: 386 Interpretive Statements SINUS BRADYCARDIA WITH ATRIAL PREMATURE COMPLEX WITH FIRST DEGREE AV BLOCK RIGHT AXIS DEVIATION DELAYED PRECORDIAL R/S TRANSITION NONSPECIFIC ST & T-WAVE ABNORMALITY- ANTEROLAT/HIGH LAT LEADS BASELINE ARTIFACT- II, AVL, V3-V6 BORDERLINE ECG Compared to ECG 01/13/2024 03:56:10 HEART RATE HAS DECREASED Electronically Signed On 02-27-2025 11:37:39 HVAC ESTIMATOR by Joseluis Lundberg D.O.
== END 2025-02-27 08:59 | disposition home or self-care (01) ==
PROVIDERS: PCP Family Medicine Adolescent Medicine; Visit Provider Anesthesiology
DX: Z01.818 Encounter for other preprocedural examination (principal); I10 Essential (primary) hypertension; R94.31 Abnormal electrocardiogram [ECG] [EKG]
CPT/HCPCS: 93005

== ENCOUNTER 2025-03-02 03:36 | Day surgery (SDC) | payer MEDICARE, SELFPAY ==
[2025-02-24 14:36] VITALS: BMI 25.7
--- NOTE | 2025-02-24 15:08 | PC.NURSE ---
[facility] has started construction of its new state of the art ER which will open Spring 2026. With this, we anticipate parking may be a challenge for some our surgical patients and families. Parking spaces are limited but are available for all Surgical, obstetrics, and ER patients sharing this lot. If you arrive and find you are having a hard time finding a parking space, please note that we understand the challenges, please drive around the hospital and park near Hospital Entrance 1. When you enter this entrance, you can ask a volunteer to direct or take you back to the surgical waiting area to check in. We appreciate everyone?s understanding of these expected challenges while we build for your future. Report to the Outpatient Waiting Room, entrance under the green pavilion located off [address], at time __11:45AM____ on date __03/02/25___. Planned Procedure Time: __1:45PM .? Time changes happen often and if your time is changed the preop area will call you the afternoon before. - You and your visitor will be asked to self-screen and do not enter if you have any COVID symptoms. Please call surgeon if you need to reschedule. - A mask is optional within the hospital at this time. Patients may have clear liquids (water, carbonated beverages, clear teas, apple juice) until 3 hours prior to surgery (10:45am) with a maximum of 20 ounces. - No food from midnight until time of surgery and no smoking, or chewing tobacco (or any form of nicotine). No chewing gum, candy or mints. Take only the following medications with a SIP of water on the morning of surgery: ___TRELEGY ELLIPTA INHALER MAY USE ALBUTEROL INHALER NEEDED DO NOT STOP ANY OF YOUR OTHER PRESCRIPTION MEDICATIONS PRIOR TO SURGERY EXCEPT THE FOLLOWING Medications to discontinue per physician ____HOLD ASPIRIN AND ALL VITAMINS/SUPPLEMENTS 7 DAYS PRE-OP PER DR BARBER, PER PATIENT___ Date to take last dose 02/22/25 Please no make-up, nail frisian, hairspray, perfume, deodorant, or body powder the day of surgery.? No jewelry (including any body piercings) or valuables the day of surgery, leave them at home.? Please take a shower or bath the night before, or the morning of, surgery with an antibacterial soap.? Wear comfortable, loose fitting clothing.? - Jewelry must be removed prior to entering the operating room.? Rings and piercings that are not removed may be cut off. - The hospital will not accept responsibility for valuables.? - Please leave all valuables, including medications, at home the day of surgery. If you are going home after surgery, a licensed farm truck driver must drive you home.? - NO public transportation without another adult if you receive anesthesia. - We recommend that an adult stay with you for 24 hours following discharge. - We also recommend that you do not drive, make important decision, drink alcoholic beverages, or take any drugs that were not prescribed by your health care provider for at least 24 hours after your discharge time. Follow any additional instructions given to you from your surgeon. Telephone instructions given to ____PATIENT and asked if any additional questions and then verbalized understanding. Patient advised to call surgeon office or pre surgery nurse liaison [phone] if any additional questions.
--- NOTE | 2025-02-27 06:28 | PM.HPGS ---
History of Present Illness History of Present Illness Consent: Risks, benefits, and alternatives have been discussed and questions answered. Patient agrees to proceed with procedure. Chief complaint: right renal stone, poss soft tissue mass Narrative: Francisco Kaiser is a 85 year old male Well known to our practice with a long history urothelial carcinoma the bladder dating back to at least [address]. Recent CT-abd/pelvis w/ contrast: possible mass at right UVJ. ? Will arrange f/u for ealry cysto and possible right URS Addendum Note?(Javier Mixon MD; 02/20/2025 2:44 PM) Upon return from I reviewed the above CT. ?Not only does he have a possible soft tissue mass of the right UVJ but also a 6-7 mm obstructing right proximal ureteral stone. ?I spoke with the patient and we will plan both ureteroscopy with laser lithotripsy and stone extraction in addition to possible laser ablation of ureteral neoplasm and/or TURBT. Review of Systems Review of Systems: All systems reviewed & are unremarkable except as noted in HPI and below PMFSH Past Medical History Medical History (Updated 02/08/25 @ 10:52 by Florencia Hauser, DOUGLAS) Anemia Rectal mass Gustatory rhinitis Bilateral impacted cerumen Bilateral hearing loss due to cerumen impaction Impacted cerumen of right ear Bladder cancer MVP (mitral valve prolapse) Lung nodules Nasal sinus tumor COPD mixed type Smoker Hyperlipidemia Anxiety Prostate cancer Colon cancer Denies colonoscopy (12/2021) Surgical History Surgical History Hx of cataract extraction Family History Family History Father Acute myocardial infarction Malignant neoplasm of prostate Family history of malignant neoplasm of bone Mother Family history of arthritis Social History Social History Social History: Caffeine-coffee Smoking packs per day: 1 Smoking cigarettes per day: 20.0 Years smoked: 60 Smoking pack-years: 60.00 Smoking status: Current every day smoker Tobacco type: cigarettes Second hand tobacco smoke exposure: Yes Alcohol intake: never Substance use: never Substance use type: does not use Lack of Transportation: No Lack of Food: Never True Current Housing: I Have Housing Concerned About Future Housing: No Difficulty Paying Gas/Electric Bills: No Difficulty Paying for Meds: No Currently Unemployed: No Education: Master's Degree or Higher Difficulty w/ Childcare or Family Care: No Living arrangements: with family Additional living arrangements comments: SPOUSE & DAUGHTER Occupation/Education: retired Gender identity (if verbalized by the patient): Male Spiritual care concerns: No Agree to blood products: Yes Meds Home Medications and Allergies Home Medications ?Medication ?Instructions ?Recorded ?Confirmed ?Type coQ10 (ubiquinol) 200 mg capsule 200 mg PO DAILY 08/17/19 02/24/25 History krill oil 500 mg capsule 350 mg PO DAILY 08/17/19 02/24/25 History multivitamin 1 tablet PO DAILY 08/17/19 02/24/25 History albuterol sulfate 90 mcg/actuation 2 inh inhalation Q4H PRN shortness 01/01/21 02/24/25 Rx aerosol inhaler (ProAir HFA) of breath or wheezing #8.5 grams aspirin 81 mg tablet,delayed 81 mg PO .every other day 07/10/21 02/24/25 History release carboxymethylcellulose sodium 0.5 1 drp EACH EYE QID PRN Dry Eyes 11/01/21 02/24/25 History % eye drops (Refresh Tears) glucosamine sulf dipot 2 cap PO DAILY 06/11/23 02/24/25 History chlr,msm,chond 550 mg-C 30 mg-alma 1 mg capsule (Glucosamine Chondroitin) atorvastatin 20 mg tablet 20 mg PO DAILY #90 tabs 11/02/23 02/24/25 Rx losartan 25 mg tablet 25 mg PO DAILY #90 tabs 09/19/24 02/24/25 Rx fluticasone fur. 200 mcg-umeclid 1 inh inhalation DAILY #60 ea 01/29/25 02/24/25 Rx 62.5 mcg-vilant 25 mcg inhalat.powder (Trelegy Ellipta) ipratropium bromide 21 mcg (0.03 2 spray intranasal BID PRN allergy 02/24/25 02/24/25 History %) nasal spray symptoms Allergies Allergy/AdvReac Type Severity Reaction Status Date / Time No Known Allergies Allergy NONE Verified 02/24/25 14:30 Exam Const: General: no acute distress Resp: Effort & Inspection: normal respiratory effort GI: Inspection: non-distended GI Palp: No abdominal tenderness and No Guarding due to palpation present (GI) Auscultation: normal bowel sounds Assessment and Plan Assessment and plan (1) History of bladder cancer: Code(s): Z85.51 - Personal history of malignant neoplasm of bladder Status: Acute Assessment and Plan: cystoscopy, right ureteroscopy with stone extraction, possible laser lithotripsy of stone and soft tissue mass, possible ureteral biopsy, possible retrograde pyelogram and right stent placement
[2025-03-02] VITALS (9 sets, daily range): BP systolic 118–186; BP diastolic 70–85; PULSE 50–61; RESP 16–20; TEMP 36.1–36.2; O2SAT 93–99
--- NOTE | ~2025-03-02 | XR_ITS ---
EXAMINATION: XR retrograde pyelo w/stent RT DATE: 03/02/2025 14:45 INDICATION: Right ureteral stone removal. TECHNIQUE: 135 images of the abdomen and pelvis were obtained procedure performed by Dr. Mixon. Radiologist was not present for the imaging or procedure. The amount of fluoroscopy time used during this procedure was 1.4 minutes. The dose area product was 1.43 mGym^2. COMPARISON: CT dated 02/09/2025 FINDINGS: No evident renal or ureteral stones on the ion implant machine operator imaging. Numerous brachytherapy seeds at the prostate. Mild upper lumbar levoscoliosis with severe spondylosis. Subsequent images demonstrate cannulation and retrograde contrast injection into the right ureter and renal collecting system. There is persistent moderate right hydroureteronephrosis. Final images demonstrate placement of a right intrarenal stent with loops formed in the right renal pelvis and in the bladder. There are some residual contrast within the right renal collecting system and distal right ureter. IMPRESSION: 1. Fluoroscopy utilized during reported right ureteral stone removal. Previously seen on CT are unable to be distinguished on either the ion implant machine operator for subsequent imaging. See procedure note for further detail. 2. Moderate right hydroureteronephrosis with placement of a right internal ureteral stent which is in expected position. Reviewed, dictated and finalized at location A. INSPECTOR IMPRESSION: 1. Fluoroscopy utilized during reported right ureteral stone removal. Previousl y seen on CT are unable to be distinguished on either the ion implant machine operator for subsequent imaging. See procedure note for further detail. 2. Moderate right hydroureteronephrosis with placement of a right internal uret eral stent which is in expected position.
--- OUTSIDE RECORDS SUMMARY | 2025-03-02 03:39 | XMS_ITS | Clinical Summary ---
Author Organization [facility] Address [address] [place] [address] Care Team Providers Care Cloth Stretcher Name Role Phone Manohar Summers MD Primary Care Provider Source Comments [facility],non-owned Affiliates and Associated Physician Practices is amultiple site organization consisting of ambulatory clinics and hospital sitesin [place], [place], [place] and [place]. This disclosure is being madepursuant to the Care Everywhere program and may not contain all information available regarding this patient. Last updated 17.[facility] [employer] Social History Tobacco Use Types Packs/Day Years [...] age to complete this topic [place] [address] [facility] [place] [address] [place] [address] [employer] MEDICARE ADV SELF PAY NO INSURANCE Member Subscriber Plan / Payer (Ef fective for All Dates) Name:Francisco Kaiser Member ID:Not on file Relation to Subscriber:Not on file Name:FRANCISCO [employer]IS[employer] Subscriber ID:Not on file (Home) Address: [address] [place] [address] [place] [address] Payer ID:Not on file Group ID:Not on file Type:Self Pay Address: [place], [place] [address] [facility] MEDICARE ADV SELF PAY NO INSURANCE Member Subscriber Plan / Payer (Ef fective for All Dates) Name:Francisco Kaiser Member ID:Not on file Relation to Subscriber:Not on file Name:FRANCISCO K[employer]IS[employer] Subscriber ID:Not on file (Home) Address: [address] [place] [address] [place] [address] Payer ID:Not on file Group ID:Not on file Type:Self Pay Address: [place], [place] [address] [facility] MEDICARE ADV SELF PAY NO INSURANCE Member Subscriber Plan / Payer (Ef fective for All Dates) Name:Francisco Kaiser Member ID:Not on file Relation to Subscriber:Not on file Name:FRANCISCO KAIS[employer] Subscriber ID:Not on file (Home) Address: [address] [place] [address] [place] [address] Payer ID:Not on file Group ID:Not on file Type:Self Pay Address: [place], [place] [employer] MED[employer]ARE ADV SELF PAY NO INSURANCE Member Subscriber Plan / Payer (Ef fective for All Dates) Name:Francisco Kaiser Member ID:Not on file Relation to Subscriber:Not on file Name:FRANCISCO KAIS[employer] Subscriber ID:Not on file (Home) Address: [address] [place] [address] [place] [address] Payer ID:Not on file Group ID:Not on file Type:Self Pay Address: [place], [place] [address] [employer] MEDICARE ADV SELF PAY NO INSURANCE Member Subscriber Plan / Payer (Ef fective for All Dates) Name:Francisco Kaiser Member ID:Not on file Relation to Subscriber:Not on file Name:FRANCISCO KAISER Subscriber ID:Not on file (Home) Address: [address] [place] [address] [place] [address] Payer ID:Not on file Group ID:Not on file Type:Self Pay Address: [place], [place] * Guarantor: FRANCISCO [employer] Account Type Relation to Patient Date of Phone Billing Address Personal/Family [address] [place] [place] [phone] [employer] MEDICARE ADV SELF PAY NO INSURANCE Member Subscriber Plan / Payer (Ef fective for All Dates) Name:Francisco Kaiser Member ID:Not on file Relation to Subscriber:Not on file Name:FRANCISCO KAISER Subscriber ID:Not on file (Home) Address: [address] [place] [address] [place] [phone] Payer ID:Not on file Group ID:Not on file Type:Self Pay Address: [place], [place] * Guarantor: FRANCISCO KAISER Account Type Relation to Patient Date of Phone Billing Address Personal/Family [address] [place] [phone] [employer] MEDICARE ADV SELF PAY NO INSURANCE Member Subscriber Plan / Payer (Ef fective for All Dates) Name:Francisco Kaiser Member ID:Not on file Relation to Subscriber:Not on file Name:FRANCISCO KAISER Subscriber ID:Not on file (Home) Address: [address] [place] [address] [place] [address] Payer ID:Not on file Group ID:Not on file Type:Self Pay Address: [place], [place] Care Teams Cloth Stretcher Relationship Specialty Start Date End Date Manohar Summers MD [address] [place], [place] [id number] PCP - General 08/29/19
--- OUTSIDE RECORDS SUMMARY | 2025-03-02 03:39 | XMS_ITS | Encounter Summary ---
Author Organization [facility] Address [address] [place] [address] Care Team Providers Care Bead Flipper Name Role Phone Manohar Summers MD Primary Care Provider [phone]- [phone] Encounter Details Date Type Department Care Team (Late st Contact Info) Description 02/01/2024 Lab Requisition [facility] - DermPath Lab [address] [place] [phone] Jeromy Loomis MD [facility] DERMATOLOGY [address] [place] [phone] Neoplasm of uncertain behavior of skin [...] Comments DERMATOPATHOLOGY Routine 02/01/2024 12:0 0 AM EMBEDDED LINUX DEVELOPER Neoplasm of uncertain behavior of skin documented in this encounter Results * DERMATOPATHOLOGY (02/01/2024 12:00 AM EMBEDDED LINUX DEVELOPER) Case Report Dermatopathology Report Case: [id number] Authorizing Provider: Jeromy Loomis MD Collected: 02/01/2024 12:00 AM Ordering Location: [facility] - Received: 02/02/2024 02:11 PM DermPath Lab Pathologist: Radha Gaona MD Specimen: Skin, right caodaism 4 3:10 PM EMBEDDED LINUX DEVELOPER DERMATOPATHOLOGY LABORATORY Final Diagnosis Specimen A. 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 The specimen consists of a shave biopsy measuring 7x6x1 mm. Jar 0. 3:10 PM [facility] DERMATOPATHOLOGY LABORATORY Microscopic Description Specimen A. SKIN, right caodaism: There is an ulcer, beneath which there are vascular proliferation, fibroblasts, and an edematous stroma. COMMENT: Given the superficial nature of the biopsy specimen, a deeper dermal process cannot be excluded. 3:10 PM [facility] DERMATOPATHOLOGY LABORATORY Disclaimer An external and internal positive and negative controls are appropriate for the histochemical, immunohistochemical and immunofluorescence stain(s) in this case (if any), except where stated explicitly. The performance characteristics of the stain(s) cited in this report were developed and its performance characteristic determined by the Dermatopathology Laboratory at [facility], directed by Dr. Lisa Halwey. These tests need not be, and therefore are not, approved by the [place] Food and Drug Administration. The tests are used for clinical purposes. Billing Codes Specimen Charges Stain Charges 44345 1 3:10 PM [facility] DERMATOPATHOLOGY LABORATORY Embedded Images 3:10 PM [facility] DERMATOPATHOLOGY LABORATORY Pathology/Cytolog y TISSUE SPECIMEN FROM SKIN / Unknown 02/01/2024 02/02/2024 2:11 PM [facility] us Jeromy Loomis MD LAB - PATHOLOGY/CYTOLOGY ORDE EFRAIN Final Result DERMATOPATHOLOGY LABORATORY [facility] - Department of Dermatology [address] [place] [address], [facility] [phone] documented in this encounter Visit Diagnoses Diagnosis Neoplasm of uncertain behavior of skin documented in this encounter Care Teams Bead Flipper Relationship Specialty Start Date End Date Manohar Summers MD [address] [place] [address] PCP - General 08/29/19 documented as of this encounter
--- OUTSIDE RECORDS SUMMARY | 2025-03-02 03:39 | XMS_ITS | Clinical Summary ---
Author Organization [facility] Address [address] [place] [address] Care Team Providers Care Mammalogist Name Role Phone Unavailable Primary Care Provider [...]
--- NOTE | 2025-03-02 07:09 | WPDHPUPDATE1 ---
History and Physical Update Update Date/Time: 03/02/25 07:09 History and Physical has been reviewed, including an updated exam of the patient. There are NO changes in the patient's condition. Risks, benefits, and alternatives have been discussed and questions answered. Patient agrees to proceed with procedure.
[2025-03-02] MEDS: LACTATED RINGERS 1,000 ML 30 ML IV CONT ×2 (12:10→14:40)
--- NOTE | 2025-03-02 13:00 | WPDANESEPPF ---
Anes - Initial Pre Proc Eval Procedure: Operation Date: 03/02/25 13:45 Proposed Procedures p Cystoscopy, Right Ureteroscopy, Possible Right Ureteral Stone Extraction, Possible Laser Lithotripsy of Right Distal Ureteral Soft Tissue, - Javier Mixon MD s Possible Trans Urethral Resection Bladder Tumor - Javier Mixon MD Date/Time: 03/02/25 13:00 Surgeon: Javier Mixon MD Pre Op Diagnosis: right renal stone, poss soft tissue mass Patient Data Age: 85 Gender: M Height: 1.65 m Weight: 70.4 kg Last Vital Signs Temp 96.9 F L 03/02/25 11:50 Pulse 61 03/02/25 11:50 Resp 18 03/02/25 11:50 BP 140/70 03/02/25 11:50 Pulse Ox 97 03/02/25 11:50 O2 Del Method Room Air 03/02/25 11:50 Allergies Allergy/AdvReac Type Severity Reaction Status Date / Time No Known Allergies Allergy NONE Verified 03/02/25 12:24 Home Medications ?Medication ?Instructions ?Recorded ?Confirmed ?Type coQ10 (ubiquinol) 200 mg capsule 200 mg PO DAILY 08/17/19 03/02/25 History krill oil 500 mg capsule 350 mg PO DAILY 08/17/19 03/02/25 History multivitamin 1 tablet PO DAILY 08/17/19 03/02/25 History albuterol sulfate 90 mcg/actuation 2 inh inhalation Q4H PRN shortness 01/01/21 03/01/25 Rx aerosol inhaler (ProAir HFA) of breath or wheezing #8.5 grams aspirin 81 mg tablet,delayed 81 mg PO .every other day 07/10/21 03/02/25 History release carboxymethylcellulose sodium 0.5 1 drp EACH EYE QID PRN Dry Eyes 11/01/21 03/01/25 History % eye drops (Refresh Tears) glucosamine sulf dipot 2 cap PO DAILY 06/11/23 03/02/25 History chlr,msm,chond 550 mg-C 30 mg-alma 1 mg capsule (Glucosamine Chondroitin) atorvastatin 20 mg tablet 20 mg PO DAILY #90 tabs 11/02/23 03/02/25 Rx losartan 25 mg tablet 25 mg PO DAILY #90 tabs 09/19/24 03/02/25 Rx fluticasone fur. 200 mcg-umeclid 1 inh inhalation DAILY #60 ea 01/29/25 03/02/25 Rx 62.5 mcg-vilant 25 mcg inhalat.powder (Trelegy Ellipta) ipratropium bromide 21 mcg (0.03 2 spray intranasal BID PRN allergy 02/24/25 03/01/25 History %) nasal spray symptoms Patient hx anesthesia problems: none Family hx anesthesia problems: none Results Review: All pre-operative results and documents have been reviewed as part of the pre-operative evaluation. [facility] Past Medical History Medical History (Updated 02/08/25 @ 10:52 by Florencia Hauser, [employer]) Anemia Rectal mass Gustatory rhinitis Bilateral impacted cerumen Bilateral hearing loss due to cerumen impaction Impacted cerumen of right ear Bladder cancer MVP (mitral valve prolapse) Lung nodules Nasal sinus tumor COPD mixed type Smoker Hyperlipidemia Anxiety Prostate cancer Colon cancer Denies colonoscopy (12/2021) Surgical History Surgical History Hx of cataract extraction Family History Family History Father Acute myocardial infarction Malignant neoplasm of prostate Family history of malignant neoplasm of bone Mother Family history of arthritis Social History Social History Social History: Caffeine-coffee Smoking packs per day: 1 Smoking cigarettes per day: 20.0 Years smoked: 40 Smoking pack-years: 40.00 Smoking status: Current every day smoker Tobacco type: cigarettes Second hand tobacco smoke exposure: Yes Alcohol intake: never Substance use: never Substance use type: does not use Lack of Transportation: No Lack of Food: Never True Current Housing: I Have Housing Concerned About Future Housing: No Difficulty Paying Gas/Electric Bills: No Difficulty Paying for Meds: No Currently Unemployed: No Education: Master's Degree or Higher Difficulty w/ Childcare or Family Care: No Living arrangements: with family Additional living arrangements comments: SPOUSE & DAUGHTER Occupation/Education: retired Gender identity (if verbalized by the patient): Male Spiritual care concerns: No Agree to blood products: Yes Anes - Eval Final PreProcedure Day of Procedure 03/02/25 13:00 Patient weight: normal Heart: regular rate and rhythm Lungs: clear to auscultation Airway: Mallampati scale class II Neurological: alert and oriented Last oral intake: >/= 8 hours ASA classification: III Emergent: no Anesthetic plan: proceed Anesthesia type and monitoring: general LMA and standard monitoring Results Review: All pre-operative results and documents have been reviewed as part of the pre-operative evaluation. Informed Consent: The patient's anesthetic plan and its attendant risks and benefits were discussed with the patient/family/POA. Questions were solicited and answers provided to the satisfaction of the patient/family/POA.
[2025-03-02] MEDS: ceFAZolin 1 GM in SODIUM CHLORIDE 0.9% IV 50 ML 100 ML IVPB (13:12)
[2025-03-02] MEDS: LIDOCAINE 2% GEL UROJET 10 ML PKG MUCOUS MEM (13:19)
--- NOTE | 2025-03-02 14:22 | S_PTH ---
PATIENT: Francisco Kaiser LOC: [facility] U#:[id number] AGE/SX: 85/M ROOM: RE03/02/[address]: Javier Mixon MD : 1940 BED: DIS: 03/02/2025 SPEC #: [id number] RECD: 03/03/25 09:10 STATUS: LYNDSAY REQ #: [id number] SHIKHA: 03/02/25 14:[address]: Javier Mixon DEPT: [facility] Surgical RECD BY: Aaliyah Smallwood ENTERED: 03/03/25 09:11 SP TYPE: Surgical OTHR DR: Abimbola Thompson PA-C Tissues: A - Bladder Biopsy B - Stone Procedures: Rich Keratin PAX-8 Gross Exam Level 1 Hematoxylin and Eosin Stain Gross and Microscopic Level 4 NKX.3 Vimentin Crystalline Analysis CK 20 CK 7 CONRADO-3
--- NOTE | 2025-03-02 15:03 | W.PM.PROC2 ---
Procedure Note - Detailed Date of Procedure 03/02/25 Pre-op Diagnosis Right ureteral stone, possible right ureteral neoplasm Post-op Diagnosis Other (1. Right proximal ureteral stone 2. Right distal ureterectasis without ureteral neoplasm) Procedure Performed Cystoscopy, right retrograde pyelography, right ureteroscopy with laser lithotripsy, stone extraction, stent placement and bladder biopsy Surgeon Javier Mixon MD Anesthesia General Findings 1. 5-6 mm right proximal ureteral stone 2. Right distal ureterectasis with scarring of the right ureteral orifice 3. No obvious ureteral neoplasm Description of Procedure Patient brought the operative suite was prepped draped in routine sterile fashion while in dorsal lithotomy position after the uneventful induction of a general LMA anesthetic. Cystoscopy was undertaken with 21 F rigid cystoscope. Bladder was very carefully inspected. He has a normal left ureteral orifice. In the area of the right ureteral for this there is heaping of the intramural portion of the ureter but I cannot identify the orifice. I resected what appeared to be scarred in hyperplastic detrusor muscle around the right ureteral orifice. There was no obvious neoplasm at that site. I was then able to identify the orifice. The distal ureter was dilated with an 8 F 10 F dilator. Distal ureteroscopy with a rigid scope showed no obvious abnormality to the mucosa over oniel ureteral neoplasm. I then used a 7.5 F flexible ureteral scope to identify the proximal ureteral stone, dusted with a 200 micron Danielito laser fiber and removed 1 fragment for analysis. There were no significant residual stone fragments at the termination. A 6 F variable length stent was appropriately positioned after doing a retrograde pyelogram to ensure position. Scopes wires removed and he was taken recovery room good condition Drains Yes
[2025-03-02] MEDS: fentaNYL CITRATE INJ (*CRX) 100 MCG/2 ML VIAL 25 MCG IV PUSH ×4 (15:14→15:41)
[2025-03-02] MEDS: oxyCODONE HCL (*CRX) 5 MG TAB IR PO (16:04)
== END 2025-03-02 16:40 | disposition home or self-care (01) ==
PROVIDERS: PCP Student in an Organized Health Care Education/Training Program; Visit Provider Urology
PROC: (CPT 52352; principal; 2025-03-02 13:45)
PROC: 0TBB8ZZ Excision of Bladder, Via Natural or Artificial Opening Endoscopic (ICD-10-PCS; CPT 52356; 2025-03-02 13:45)
DX: C67.6 Malignant neoplasm of ureteric orifice (principal); N13.2 Hydronephrosis with renal and ureteral calculous obstruction; D64.9 Anemia, unspecified; J44.9 Chronic obstructive pulmonary disease, unspecified; E78.5 Hyperlipidemia, unspecified; F41.9 Anxiety disorder, unspecified; F17.210 Nicotine dependence, cigarettes, uncomplicated; Z79.51 Long term (current) use of inhaled steroids; Z79.82 Long term (current) use of aspirin; Z98.890 Other specified postprocedural states; Z85.46 Personal history of malignant neoplasm of prostate; Z85.51 Personal history of malignant neoplasm of bladder; Z85.038 Personal history of other malignant neoplasm of large intestine; Z86.79 Personal history of other diseases of the circulatory system; Z80.42 Family history of malignant neoplasm of prostate; Z80.8 Family history of malignant neoplasm of other organs or systems; Z82.49 Family history of ischemic heart disease and other diseases of the circulatory system
CPT/HCPCS: 52356; 74420; 82365; 88300; 88305; 88342; A9270; C1758; C1769; C2617; J0690; J1100; J2003; J2405; J2704; J3010; J7120; Q9966